=== PATIENT | male | born 1945 | race Caucasian/White ===

== ENCOUNTER → 2018-03-05 02:25 | Outpatient (CLI) | payer MEDICARE, BC, SELFPAY ==
[2018-03-05 11:26] LABS: INR 3.8 (1.0-3.5); Prothrombin Time 35.3 sec (9.3-10.8)
== END ==
PROVIDERS: Family Medicine; PCP Emergency Medicine; Visit Provider Emergency Medicine
DX: I48.91 Unspecified atrial fibrillation (principal); Z79.01 Long term (current) use of anticoagulants
CPT/HCPCS: 36415; 85610

== ENCOUNTER 2018-03-12 07:51 | Outpatient (CLI) | payer MEDICARE, BC, SELFPAY ==
[2018-03-12 11:16] LABS: INR 2.5 (1.0-3.5); Prothrombin Time 23.3 sec (9.3-10.8)
== END 2018-03-12 07:52 ==
PROVIDERS: Family Medicine; PCP Emergency Medicine; Visit Provider Emergency Medicine
DX: I48.91 Unspecified atrial fibrillation (principal); Z79.01 Long term (current) use of anticoagulants
CPT/HCPCS: 36415; 85610

== ENCOUNTER 2018-03-19 03:04 | Outpatient (CLI) | payer MEDICARE, BC, SELFPAY ==
[2018-03-19 11:23] LABS: INR 3.1 (1.0-3.5)
== END 2018-03-19 03:24 ==
PROVIDERS: Family Medicine; PCP Emergency Medicine; Visit Provider Emergency Medicine
DX: I48.91 Unspecified atrial fibrillation (principal); Z79.01 Long term (current) use of anticoagulants
CPT/HCPCS: 36415; 85610

== ENCOUNTER 2018-03-26 02:15 | Outpatient (CLI) | payer MEDICARE, BC, SELFPAY ==
[2018-03-26 11:39] LABS: C-Reactive Protein 0.12 mg/dL (0.0-0.3)
[2018-03-26 11:50] LABS: INR 3.4 (1.0-3.5)
[2018-03-26 12:20] LABS: Vitamin B12 669 pg/mL (193-986)
== END 2018-03-26 02:35 ==
PROVIDERS: Family Medicine; Internal Medicine Gastroenterology; PCP Emergency Medicine; Visit Provider Emergency Medicine
DX: I48.91 Unspecified atrial fibrillation (principal); Z79.01 Long term (current) use of anticoagulants; K50.00 Crohn's disease of small intestine without complications; K90.89 Other intestinal malabsorption; K29.00 Acute gastritis without bleeding
CPT/HCPCS: 36415; 82607; 85610; 86140

== ENCOUNTER 2018-04-02 01:28 | Outpatient (CLI) | payer MEDICARE, BC, SELFPAY ==
[2018-04-02 11:15] LABS: INR 2.5 (1.0-3.5); Prothrombin Time 23.3 sec (9.3-10.8)
== END 2018-04-02 01:48 ==
PROVIDERS: PCP Emergency Medicine; Visit Provider Emergency Medicine
DX: I48.91 Unspecified atrial fibrillation (principal); Z79.01 Long term (current) use of anticoagulants
CPT/HCPCS: 36415; 85610

== ENCOUNTER 2018-04-09 02:18 | Outpatient (CLI) | payer MEDICARE, BC, SELFPAY ==
[2018-04-09 13:00] LABS: INR 2.8 (1.0-3.5); Prothrombin Time 26.1 sec (9.3-10.8)
== END 2018-04-09 02:38 ==
PROVIDERS: Family Medicine; PCP Emergency Medicine; Visit Provider Emergency Medicine
DX: Z79.01 Long term (current) use of anticoagulants (principal); R69 Illness, unspecified
CPT/HCPCS: 36415; 85610

== ENCOUNTER 2018-05-06 08:45 | Outpatient (CLI) | payer MEDICARE, BC, SELFPAY ==
[2018-05-06 14:44] LABS: INR 1.9 (1.0-3.5)
[2018-05-06 14:47] LABS: ALT 45 U/L (12-78); AST 32 U/L (15-37); Albumin 3.6 g/dL (3.4-5.0); Alkaline Phosphatase 68 U/L (46-116); Anion Gap 7.6 mmol/L (3-11); BUN 19 mg/dL (7-18); Bilirubin, Total 0.5 mg/dL (0.2-1.0); CO2 27.4 mmol/L (21.0-32.0); CREATININE 0.93 mg/dL (0.70-1.30); Calcium 8.6 mg/dL (8.5-10.1); Chloride 101 mmol/L (98-107); Glucose 115 mg/dL (70-100); Potassium 4.3 mmol/L (3.5-5.1); Sodium 136 mmol/L (136-145); Total Protein 7.1 g/dL (6.4-8.2)
[2018-05-06 14:59] LABS: Abs Immature Grans 0.01 k/cumm (0.0-0.09); Absolute Basophil Count 0.03 k/cumm (0.0-0.2); Absolute Eosinophil Count 0.09 k/cumm (0.0-0.7); Absolute Lymphocyte Count 1.13 k/cumm (1.2-3.4); Absolute Monocyte Count 0.56 k/cumm (0.11-0.7); Absolute Neutrophil Count 4.53 k/cumm (1.2-6.7); Basophils % 0.5; Eosinophils % 1.4; HCT 38.9 % (40.0-50.0); HGB 13.2 g/dL (13.5-17.5); Immature Grans % 0.2; Lymphocytes % 17.8; Mean Corp. HGB Concentration 33.9 g/dL (32.0-36.0); Mean Corpuscular Hemoglobin 30.5 pg (27.0-33.0); Mean Corpuscular Volume 89.8 fL (80-95); Mean Platelet Volume 9.9 fL (8.0-11.0); Monocytes % 8.8; Neutrophils % 71.3; Platelet Count 227 x1000/uL (130-400); RBC 4.33 m/cumm (4.50-6.00); RBC Distribution Width 14.7 % (11.8-14.1); White Blood Cell Count 6.35 k/cumm (4.4-10.8)
[2018-05-07 10:38] LABS: PSA, Diagnostic <0.1 ng/ml (0-6.5)
[2018-05-08 03:10] LABS: Testosterone, Total 262 ng/dL (240-950)
== END 2018-05-06 09:05 ==
PROVIDERS: Family Medicine; Internal Medicine; PCP Emergency Medicine; Visit Provider Emergency Medicine
DX: Z85.46 Personal history of malignant neoplasm of prostate (principal); I48.91 Unspecified atrial fibrillation; Z79.01 Long term (current) use of anticoagulants
CPT/HCPCS: 36415; 80053; 84403; 84153; 85025; 85610

== ENCOUNTER 2018-05-20 01:42 | Outpatient (CLI) | payer MEDICARE, BC, SELFPAY ==
[2018-05-20 10:45] LABS: INR 2.5 (1.0-3.5); Prothrombin Time 23.3 sec (9.3-10.8)
== END 2018-05-20 02:02 ==
PROVIDERS: PCP Emergency Medicine; Visit Provider Emergency Medicine
DX: I48.91 Unspecified atrial fibrillation (principal); Z79.01 Long term (current) use of anticoagulants
CPT/HCPCS: 36415; 85610

== ENCOUNTER 2018-06-03 07:59 | Outpatient (CLI) | payer MEDICARE, BC, SELFPAY ==
[2018-06-03 09:32] LABS: INR 2.2 (1.0-3.5); Prothrombin Time 20.7 sec (9.3-10.8)
== END 2018-06-03 08:19 ==
LOC: LOS 08:05 → LBO 08:59
PROVIDERS: Family Medicine; PCP Emergency Medicine; Visit Provider Emergency Medicine
DX: I48.91 Unspecified atrial fibrillation (principal); Z79.01 Long term (current) use of anticoagulants
CPT/HCPCS: 36415; 85610

== ENCOUNTER 2018-07-23 08:34 | Outpatient (CLI) | payer MEDICARE, BC, SELFPAY ==
[2018-07-23 12:38] LABS: INR 1.3 (0.9-1.1); Prothrombin Time 13.3 sec (9.3-11.0)
== END 2018-07-23 08:54 ==
PROVIDERS: Family Medicine; PCP Emergency Medicine; Visit Provider Emergency Medicine
DX: I48.91 Unspecified atrial fibrillation (principal); Z79.01 Long term (current) use of anticoagulants
CPT/HCPCS: 36415; 85610

== ENCOUNTER 2018-07-30 08:50 | Outpatient (CLI) | payer MEDICARE, BC, SELFPAY ==
[2018-07-30 15:43] LABS: INR 1.4 (0.9-1.1); Prothrombin Time 14.4 sec (9.3-11.0)
== END 2018-07-30 09:10 ==
PROVIDERS: PCP Emergency Medicine; Visit Provider Emergency Medicine
DX: I48.91 Unspecified atrial fibrillation (principal); Z79.01 Long term (current) use of anticoagulants
CPT/HCPCS: 36415; 85610

== ENCOUNTER 2018-08-06 09:24 | Outpatient (CLI) | payer MEDICARE, BC, SELFPAY ==
[2018-08-06 12:06] LABS: INR 1.7 (0.9-1.1); Prothrombin Time 16.8 sec (9.3-11.0)
== END 2018-08-06 09:44 ==
PROVIDERS: Family Medicine; PCP Emergency Medicine; Visit Provider Emergency Medicine
DX: I48.91 Unspecified atrial fibrillation (principal); Z79.01 Long term (current) use of anticoagulants
CPT/HCPCS: 36415; 85610

== ENCOUNTER 2018-08-07 10:13 | Outpatient (CLI) | payer MEDICARE, BC, SELFPAY ==
--- NOTE | 2018-08-07 10:15 | DI.RAD_ITS ---
SYMPTOMS/DIAGNOSIS: PAIN RIGHT THUMB: Three views. At the interphalangeal joint, periarticular spurring and joint space narrowing is seen. At the metacarpophalangeal joint, there is mild narrowing. The 1st carpometacarpal joint appears well maintained. The bones appear intact and normally mineralized. The soft tissues are unremarkable. IMPRESSION: Mild osteoarthritis of the right thumb.
== END 2018-08-07 10:33 ==
PROVIDERS: PCP Emergency Medicine; Referring Provider Emergency Medicine; Visit Provider Student in an Organized Health Care Education/Training Program
DX: G89.29 Other chronic pain (principal); M79.644 Pain in right finger(s); M19.041 Primary osteoarthritis, right hand; M19.012 Primary osteoarthritis, left shoulder
CPT/HCPCS: 99214; 99243; 73140

== ENCOUNTER 2018-08-13 01:48 | Outpatient (CLI) | payer MEDICARE, BC, SELFPAY ==
[2018-08-13 14:14] LABS: Absolute Basophil Count 0.05 k/cumm (0.0-0.2); Absolute Lymphocyte Count 1.16 k/cumm (1.2-3.4); Absolute Neutrophil Count 4.01 k/cumm (1.2-6.7); Basophils % 0.8; Eosinophils % 3.4; HCT 39.4 % (40.0-50.0); HGB 13.4 g/dL (13.5-17.5); Lymphocytes % 19.6; Mean Corpuscular Hemoglobin 30.3 pg (27.0-33.0); Mean Corpuscular Volume 89.1 fL (80-95); Mean Platelet Volume 10.9 fL (8.0-11.0); Monocytes % 8.4; Neutrophils % 67.8; Platelet Count 200 x1000/uL (130-400); RBC 4.42 m/cumm (4.50-6.00); RBC Distribution Width 14.5 % (11.8-14.1); White Blood Cell Count 5.92 k/cumm (4.4-10.8)
[2018-08-13 14:26] LABS: ALT 54 U/L (12-78); AST 38 U/L (15-37); Albumin 3.8 g/dL (3.4-5.0); Alkaline Phosphatase 67 U/L (46-116); Anion Gap 8.6 mmol/L (3-11); BUN 21 mg/dL (7-18); Bilirubin, Total 0.6 mg/dL (0.2-1.0); CO2 28.4 mmol/L (21.0-32.0); CREATININE 1.01 mg/dL (0.70-1.30); Chloride 103 mmol/L (98-107); Glucose 108 mg/dL (70-100); Potassium 4.2 mmol/L (3.5-5.1); Sodium 140 mmol/L (136-145); Total Protein 7.6 g/dL (6.4-8.2)
[2018-08-13 14:27] LABS: INR 2.7 (0.9-1.1)
[2018-08-14 09:55] LABS: PSA, Diagnostic <0.1 ng/ml (0-6.5)
[2018-08-16 14:58] LABS: Testosterone, Total 244 ng/dL (240-950)
== END 2018-08-13 02:08 ==
PROVIDERS: PCP Emergency Medicine; Visit Provider Emergency Medicine
DX: C61 Malignant neoplasm of prostate (principal); I48.91 Unspecified atrial fibrillation; Z79.01 Long term (current) use of anticoagulants
CPT/HCPCS: 36415; 80053; 84403; 84153; 85025; 85610

== ENCOUNTER 2018-08-27 07:58 | Outpatient (CLI) | payer MEDICARE, BC, SELFPAY ==
[2018-08-27 16:36] LABS: INR 1.8 (0.9-1.1); Prothrombin Time 18.1 sec (9.3-11.0)
== END 2018-08-27 08:18 ==
PROVIDERS: Family Medicine; PCP Emergency Medicine; Visit Provider Emergency Medicine
DX: I48.91 Unspecified atrial fibrillation (principal); Z79.01 Long term (current) use of anticoagulants
CPT/HCPCS: 36415; 85610

== ENCOUNTER 2018-09-03 07:42 | Outpatient (CLI) | payer MEDICARE, BC, SELFPAY ==
[2018-09-03 11:46] LABS: INR 2.9 (0.9-1.1); Prothrombin Time 28.9 sec (9.3-11.0)
== END 2018-09-03 08:02 ==
PROVIDERS: Family Medicine; PCP Emergency Medicine; Visit Provider Emergency Medicine
DX: I48.91 Unspecified atrial fibrillation (principal); Z79.01 Long term (current) use of anticoagulants
CPT/HCPCS: 36415; 85610

== ENCOUNTER 2018-09-17 02:28 | Outpatient (CLI) | payer MEDICARE, BC, SELFPAY ==
[2018-09-17 09:18] LABS: INR 2.9 (0.9-1.1); Prothrombin Time 29.5 sec (9.3-11.0)
== END 2018-09-17 02:48 ==
PROVIDERS: PCP Emergency Medicine; Visit Provider Emergency Medicine
DX: I48.91 Unspecified atrial fibrillation (principal); Z79.01 Long term (current) use of anticoagulants
CPT/HCPCS: 36415; 85610

== ENCOUNTER 2018-11-23 14:14 | Outpatient (CLI) | payer MEDICARE, BC, SELFPAY ==
[2018-11-23 16:32] LABS: Abs Immature Grans 0.01 k/cumm (0.0-0.09); Absolute Basophil Count 0.03 k/cumm (0.0-0.2); Absolute Eosinophil Count 0.13 k/cumm (0.0-0.7); Absolute Lymphocyte Count 1.31 k/cumm (1.2-3.4); Absolute Neutrophil Count 7.45 k/cumm (1.2-6.7); Basophils % 0.3; Eosinophils % 1.3; HGB 13.5 g/dL (13.5-17.5); Immature Grans % 0.1; Lymphocytes % 13.6; Mean Corp. HGB Concentration 34.6 g/dL (32.0-36.0); Mean Corpuscular Hemoglobin 30.2 pg (27.0-33.0); Mean Corpuscular Volume 87.2 fL (80-95); Mean Platelet Volume 11.2 fL (8.0-11.0); Monocytes % 7.3; Neutrophils % 77.4; Platelet Count 246 x1000/uL (130-400); RBC 4.47 m/cumm (4.50-6.00); White Blood Cell Count 9.63 k/cumm (4.4-10.8)
[2018-11-23 16:44] LABS: INR 3.4 (0.9-1.1); Prothrombin Time 34.5 sec (9.3-11.0)
[2018-11-23 18:04] LABS: ALT 49 U/L (12-78); AST 40 U/L (15-37); Albumin 3.8 g/dL (3.4-5.0); Alkaline Phosphatase 73 U/L (46-116); Anion Gap 13.4 mmol/L (3-11); BUN 26 mg/dL (7-18); Bilirubin, Total 0.8 mg/dL (0.2-1.0); CO2 21.6 mmol/L (21.0-32.0); CREATININE 1.33 mg/dL (0.70-1.30); Calcium 8.7 mg/dL (8.5-10.1); Chloride 102 mmol/L (98-107); Estimated GFR 52.71 (mL/min/1.73m2); Glucose 112 mg/dL (70-100); Potassium 4.1 mmol/L (3.5-5.1); Sodium 137 mmol/L (136-145); Total Protein 7.1 g/dL (6.4-8.2)
[2018-11-25 09:37] LABS: PSA, Diagnostic 0.1 ng/ml (0-6.5)
[2018-11-27 09:29] LABS: Testosterone, Total 352 ng/dL (240-950)
== END 2018-11-23 14:34 ==
PROVIDERS: PCP Emergency Medicine; Visit Provider Internal Medicine
DX: C61 Malignant neoplasm of prostate (principal); I48.91 Unspecified atrial fibrillation; Z79.01 Long term (current) use of anticoagulants
CPT/HCPCS: 36415; 80053; 84403; 84153; 85025; 85610

== ENCOUNTER 2018-12-02 07:35 | Outpatient (CLI) | payer MEDICARE, BC, SELFPAY ==
[2018-12-02 09:07] LABS: INR 2.4 (0.9-1.1); Prothrombin Time 24.1 sec (9.3-11.0)
== END 2018-12-02 07:55 ==
PROVIDERS: Family Medicine; PCP Emergency Medicine; Visit Provider Emergency Medicine
DX: I48.91 Unspecified atrial fibrillation (principal); Z79.01 Long term (current) use of anticoagulants
CPT/HCPCS: 36415; 85610

== ENCOUNTER 2018-12-29 01:41 | Outpatient (CLI) | payer MEDICARE, BC, SELFPAY ==
[2018-12-29 14:38] LABS: INR 2.8 (0.9-1.1); Prothrombin Time 28.2 sec (9.3-11.0)
== END 2018-12-29 02:01 ==
PROVIDERS: Family Medicine; PCP Emergency Medicine; Visit Provider Emergency Medicine
DX: I48.91 Unspecified atrial fibrillation (principal); Z79.01 Long term (current) use of anticoagulants
CPT/HCPCS: 36415; 85610

== ENCOUNTER 2019-01-05 19:51 | Outpatient (REF) | payer MEDICARE, BC, SELFPAY ==
[2019-01-05 20:11] LABS: Bacteria Negative HPF (Negative); Bilirubin Negative (Negative); Blood Moderate (Negative); C & S Indicated? No; Casts Negative LPF (Negative); Clarity Clear (Clear); Crystals Negative HPF (Negative); Epithelial Cells Negative HPF (Negative); Glucose Negative (Negative); Ketones Negative (Negative); Leukocyte Esterase Negative (Negative); Mucus Negative (Negative); Nitrite Negative (Negative); Other Cells Negative (Negative); RBC 20-50 (0-2); Urobilinogen 0.2 EU/dL (Up TO 0.2); WBC Negative HPF (0-5)
== END 2019-01-05 20:11 ==
LOC: LBN 19:51
PROVIDERS: PCP Emergency Medicine; Visit Provider Emergency Medicine
DX: R31.9 Hematuria, unspecified (principal)
CPT/HCPCS: 81003; 81015

== ENCOUNTER 2019-01-15 02:55 | Outpatient (CLI) | payer MEDICARE, BC, SELFPAY ==
--- NOTE | 2019-02-02 16:40 | ZIOP_ITS ---
DATE OF DICTATION: February 02, 2019 STUDY INDICATION: Atrial flutter. REQUESTING PROVIDER: Dong Stiles D.O. FINDINGS: The patient was monitored for 13 days and 6 hours. The predominant underlying rhythm was sinus rhythm. Average heart rate in sinus rhythm 68 bpm, range 45 to 122 bpm. There was rare ectopy. There were 51 episodes of supraventricular tachycardia, average heart rate 123 bpm, range 51 to 184 bpm. The longest episode lasted 21.9 seconds with an average heart rate of 130 bpm. There were no pauses greater than 3 seconds. There was no high-degree heart block. There were four patient events. None of these events correlated with arrhythmia. FINAL INTERPRETATION: Occasional bursts of supraventricular tachycardia, asymptomatic.
== END 2019-01-15 03:15 ==
PROVIDERS: PCP Emergency Medicine; Visit Provider Emergency Medicine
DX: I48.92 Unspecified atrial flutter (principal); I47.1 Supraventricular tachycardia
CPT/HCPCS: 0296T

== ENCOUNTER 2019-01-27 01:44 | Outpatient (CLI) | payer MEDICARE, BC, SELFPAY ==
[2019-01-27 12:04] LABS: Prothrombin Time 24.7 sec (9.3-11.0)
[2019-01-27 12:05] LABS: Hemoglobin A1C 5.6 % (4.5-6.2)
[2019-01-27 12:09] LABS: INR 2.4 (0.9-1.1)
== END 2019-01-27 02:04 ==
PROVIDERS: PCP Emergency Medicine; Visit Provider Emergency Medicine
DX: E11.9 Type 2 diabetes mellitus without complications (principal); I48.91 Unspecified atrial fibrillation; Z79.01 Long term (current) use of anticoagulants
CPT/HCPCS: 36415; 83036; 85610

== ENCOUNTER 2019-02-02 11:01 | Outpatient (CLI) | payer MEDICARE, BC, SELFPAY | END 2019-02-02 11:21 | PROVIDERS: PCP Emergency Medicine; Referring Provider Emergency Medicine; Visit Provider Student in an Organized Health Care Education/Training Program | DX: I48.92 Unspecified atrial flutter (principal) | CPT/HCPCS: 0298T ==

== ENCOUNTER 2019-02-25 00:35 | Outpatient (CLI) | payer MEDICARE, BC, SELFPAY ==
[2019-02-25 13:22] LABS: Prothrombin Time 30.8 sec (9.3-11.0)
== END 2019-02-25 00:55 ==
PROVIDERS: Family Medicine; PCP Emergency Medicine; Visit Provider Emergency Medicine
DX: I48.91 Unspecified atrial fibrillation (principal); Z79.01 Long term (current) use of anticoagulants
CPT/HCPCS: 36415; 85610

== ENCOUNTER 2019-03-04 01:45 | Outpatient (CLI) | payer MEDICARE, BC, SELFPAY ==
--- NOTE | 2019-03-04 14:00 | DI.CT_ITS ---
SYMPTOMS/DIAGNOSIS: GROSS HEMATURIA, H/O PROSTATE CA, Z85.46 CT UROGRAPHY: Pre and post contrast CT scan was performed. No priors for comparison. Noncontrast CT scan of the abdomen and pelvis shows multiple calcifications in the spleen, consistent with prior granulomatous disease. There is right nephrolithiasis, the largest stone measures 0.6 cm. No ureterolithiasis or obstructive uropathy is present. There are no stones seen in the urinary bladder. There is scarring in the left lung base. There is elevation of the left hemidiaphragm. This is unchanged compared to the CT scan of the chest from 12/25/12. Lack of IV contrast does limit evaluation of the abdominal and pelvic organs. Postcontrast CT scan of the abdomen and pelvis was performed. The liver is normal in size. No suspicious hepatic mass is seen. Calcifications are seen in the liver consistent with prior granulomatous disease. The portal, superior mesenteric and splenic veins are patent. The gallbladder is negative. There is no biliary ductal dilatation. The pancreas is grossly unremarkable. The adrenal glands are unremarkable. The kidneys show normal and symmetric enhancement. There are a few tiny hypodensities seen in the left kidney. They are too small for further characterization but likely reflect small cysts. No suspicious solid mass is present. The urinary bladder is intact. The abdominal aorta is of normal caliber. The bowel shows no evidence of obstruction or inflammation. No significant abdominal or pelvic adenopathy, ascites or pneumoperitoneum is present. There are marked degenerative changes seen in the spine. There is fusion of the L2-3 and L3-L4 disc spaces. There is a left convex scoliotic curvature of the lumbar spine. No sclerotic osseous lesions are identified. [id number] images of the renal collecting system were performed. There are no filling defects present. No evidence of obstruction is seen. There is contrast seen within the urinary bladder. No definite urinary bladder mass is seen. IMPRESSION: 1. Right nephrolithiasis. No evidence of ureterolithiasis or obstructive uropathy. No evidence of a renal mass. 2. Findings of prior granulomatous disease. 3. Marked degenerative changes seen in the lumbar spine.
[2019-03-04 14:37] LABS: CREATININE 0.86 mg/dL (0.70-1.30)
[2019-03-04 14:46] LABS: INR 2.5 (0.9-1.1); Prothrombin Time 25.1 sec (9.3-11.0)
[2019-03-04] MEDS: Omnipaque 350 MG/ML 50 ML BTL IJ ×2 (14:54→14:55)
== END 2019-03-04 02:05 ==
PROVIDERS: Family Medicine; PCP Emergency Medicine; Visit Provider Surgery
DX: R31.0 Gross hematuria (principal); Z85.46 Personal history of malignant neoplasm of prostate; N20.0 Calculus of kidney; I48.91 Unspecified atrial fibrillation; Z79.01 Long term (current) use of anticoagulants
CPT/HCPCS: 36415; 74178; 82565; 85610; Q9967

== ENCOUNTER 2019-03-30 01:21 | Outpatient (CLI) | payer MEDICARE, BC, SELFPAY ==
[2019-03-30 16:23] LABS: INR 3.1 (0.9-1.1); Prothrombin Time 31.4 sec (9.3-11.0)
== END 2019-03-30 01:41 ==
PROVIDERS: PCP Emergency Medicine; Visit Provider Emergency Medicine
DX: I48.91 Unspecified atrial fibrillation (principal); Z79.01 Long term (current) use of anticoagulants
CPT/HCPCS: 36415; 85610

== ENCOUNTER 2019-04-13 11:14 | Outpatient (CLI) | payer MEDICARE, BC, SELFPAY ==
[2019-04-13 14:48] LABS: INR 2.8 (0.9-1.1); Prothrombin Time 27.3 sec (9.3-11.0)
== END 2019-04-13 11:34 ==
PROVIDERS: PCP Emergency Medicine; Visit Provider Emergency Medicine
DX: I48.91 Unspecified atrial fibrillation (principal); Z79.01 Long term (current) use of anticoagulants
CPT/HCPCS: 36415; 85610

== ENCOUNTER 2019-05-04 02:08 | Outpatient (CLI) | payer MEDICARE, BC, SELFPAY ==
[2019-05-04 09:12] LABS: Absolute Basophil Count 0.03 k/cumm (0.0-0.2); Absolute Eosinophil Count 0.14 k/cumm (0.0-0.7); Absolute Lymphocyte Count 0.83 k/cumm (1.2-3.4); Absolute Monocyte Count 0.45 k/cumm (0.11-0.7); Absolute Neutrophil Count 3.49 k/cumm (1.2-6.7); Basophils % 0.6; Eosinophils % 2.8; HCT 39.6 % (40.0-50.0); HGB 13.3 g/dL (13.5-17.5); Lymphocytes % 16.8; Mean Corp. HGB Concentration 33.6 g/dL (32.0-36.0); Mean Corpuscular Hemoglobin 30.3 pg (27.0-33.0); Mean Corpuscular Volume 90.2 fL (80-95); Mean Platelet Volume 10.6 fL (8.0-11.0); Monocytes % 9.1; Neutrophils % 70.7; Platelet Count 221 x1000/uL (130-400); RBC 4.39 m/cumm (4.50-6.00); RBC Distribution Width 14.8 % (11.8-14.1); White Blood Cell Count 4.94 k/cumm (4.4-10.8)
[2019-05-04 09:34] LABS: ALT 34 U/L (16-63); AST 28 U/L (15-37); Albumin 3.6 g/dL (3.4-5.0); Alkaline Phosphatase 63 U/L (46-116); Anion Gap 7.1 mmol/L (3-11); BUN 19 mg/dL (7-18); Bilirubin, Total 0.9 mg/dL (0.2-1.0); CO2 28.9 mmol/L (21.0-32.0); CREATININE 0.96 mg/dL (0.70-1.30); Calcium 8.7 mg/dL (8.5-10.1); Chloride 103 mmol/L (98-107); Glucose 87 mg/dL (70-100); Potassium 4.2 mmol/L (3.5-5.1); Sodium 139 mmol/L (136-145); Total Protein 7.1 g/dL (6.4-8.2)
[2019-05-04 09:40] LABS: INR 2.5 (0.9-1.1); Prothrombin Time 24.7 sec (9.3-11.0)
[2019-05-05 10:57] LABS: PSA, Screening <0.1 ng/ml (0-6.5)
[2019-05-06 12:47] LABS: Testosterone, Total 302 ng/dL (240-950)
== END 2019-05-04 02:28 ==
PROVIDERS: Family Medicine; PCP Emergency Medicine; Visit Provider Internal Medicine
DX: C61 Malignant neoplasm of prostate (principal); I48.91 Unspecified atrial fibrillation; Z79.01 Long term (current) use of anticoagulants
CPT/HCPCS: 36415; 80053; 84153; 84403; 85025; 85610

== ENCOUNTER 2019-06-18 08:38 | Outpatient (CLI) | payer MEDICARE, BC, SELFPAY ==
[2019-06-18 15:50] LABS: Prothrombin Time 29.3 sec (9.3-11.0)
== END 2019-06-18 08:58 ==
PROVIDERS: PCP Emergency Medicine; Visit Provider Family Medicine
DX: I48.91 Unspecified atrial fibrillation (principal); Z79.01 Long term (current) use of anticoagulants
CPT/HCPCS: 36415; 85610

== ENCOUNTER 2019-07-12 08:43 | Outpatient (CLI) | payer MEDICARE, BC, SELFPAY ==
[2019-07-12 13:29] LABS: INR 2.8 (0.9-1.1); Prothrombin Time 27.8 sec (9.3-11.0)
== END 2019-07-12 09:03 ==
PROVIDERS: PCP Emergency Medicine; Visit Provider Emergency Medicine
DX: I48.91 Unspecified atrial fibrillation (principal); Z79.01 Long term (current) use of anticoagulants
CPT/HCPCS: 36415; 85610

== ENCOUNTER 2019-08-16 10:11 | Outpatient (CLI) | payer MEDICARE, BC, SELFPAY ==
[2019-08-16 13:13] LABS: Abs Immature Grans 0.01 k/cumm (0.0-0.09); Absolute Basophil Count 0.03 k/cumm (0.0-0.2); Absolute Eosinophil Count 0.14 k/cumm (0.0-0.7); Absolute Lymphocyte Count 1.12 k/cumm (1.2-3.4); Absolute Monocyte Count 0.59 k/cumm (0.11-0.7); Absolute Neutrophil Count 4.16 k/cumm (1.2-6.7); Basophils % 0.5; Eosinophils % 2.3; HCT 39.6 % (40.0-50.0); HGB 13.3 g/dL (13.5-17.5); Immature Grans % 0.2 %; Lymphocytes % 18.5; Mean Corp. HGB Concentration 33.6 g/dL (32.0-36.0); Mean Corpuscular Volume 89.4 fL (80-95); Mean Platelet Volume 10.5 fL (8.0-11.0); Monocytes % 9.8; Neutrophils % 68.7; Platelet Count 224 x1000/uL (130-400); RBC 4.43 m/cumm (4.50-6.00); RBC Distribution Width 14.6 % (11.8-14.1); White Blood Cell Count 6.05 k/cumm (4.4-10.8)
[2019-08-16 14:02] LABS: INR 3.4 (0.9-1.1); Prothrombin Time 33.3 sec (9.3-11.0)
[2019-08-16 14:10] LABS: ALT 35 U/L (16-63); AST 26 U/L (15-37); Albumin 3.8 g/dL (3.4-5.0); Alkaline Phosphatase 69 U/L (46-116); Anion Gap 7.6 mmol/L (3-11); BUN 23 mg/dL (7-18); Bilirubin, Total 0.5 mg/dL (0.2-1.0); CO2 27.4 mmol/L (21.0-32.0); CREATININE 1.07 mg/dL (0.70-1.30); Calcium 8.5 mg/dL (8.5-10.1); Chloride 106 mmol/L (98-107); Glucose 88 mg/dL (74-106); Potassium 4.7 mmol/L (3.5-5.1); Sodium 141 mmol/L (136-145); Total Protein 6.8 g/dL (6.4-8.2)
[2019-08-17 09:57] LABS: PSA, Diagnostic <0.1 ng/mL (0.0-6.5)
[2019-08-18 16:04] LABS: Testosterone, Total 169 ng/dL (240-950)
== END 2019-08-16 10:31 ==
PROVIDERS: Family Medicine; PCP Emergency Medicine; Visit Provider Internal Medicine
DX: C61 Malignant neoplasm of prostate (principal); I48.91 Unspecified atrial fibrillation; Z79.01 Long term (current) use of anticoagulants
CPT/HCPCS: 36415; 80053; 84403; 84153; 85025; 85610

== ENCOUNTER 2019-08-30 08:00 | Outpatient (CLI) | payer MEDICARE, BC, SELFPAY ==
[2019-08-30 13:32] LABS: INR 3.9 (0.9-1.1); Prothrombin Time 38.2 sec (9.3-11.0)
== END 2019-08-30 08:20 ==
PROVIDERS: Family Medicine; PCP Emergency Medicine; Visit Provider Emergency Medicine
DX: I48.91 Unspecified atrial fibrillation (principal); Z79.01 Long term (current) use of anticoagulants
CPT/HCPCS: 36415; 85610

== ENCOUNTER 2019-09-06 08:10 | Outpatient (CLI) | payer MEDICARE, BC, SELFPAY ==
[2019-09-06 10:11] LABS: Absolute Basophil Count 0.05 k/cumm (0.0-0.2); Absolute Eosinophil Count 0.16 k/cumm (0.0-0.7); Absolute Lymphocyte Count 1.02 k/cumm (1.2-3.4); Absolute Monocyte Count 0.52 k/cumm (0.11-0.7); Basophils % 1.1; Eosinophils % 3.4; HCT 39.6 % (40.0-50.0); HGB 13.4 g/dL (13.5-17.5); Lymphocytes % 21.9; Mean Corp. HGB Concentration 33.8 g/dL (32.0-36.0); Mean Corpuscular Volume 88.8 fL (80-95); Mean Platelet Volume 10.9 fL (8.0-11.0); Monocytes % 11.2; Neutrophils % 62.4; Platelet Count 229 x1000/uL (130-400); RBC 4.46 m/cumm (4.50-6.00); RBC Distribution Width 14.8 % (11.8-14.1); White Blood Cell Count 4.65 k/cumm (4.4-10.8)
[2019-09-06 10:17] LABS: INR 1.7 (0.9-1.1)
[2019-09-06 11:03] LABS: ALT 36 U/L (16-63); AST 29 U/L (15-37); Albumin 3.7 g/dL (3.4-5.0); Alkaline Phosphatase 66 U/L (46-116); Anion Gap 8.4 mmol/L (3-11); BUN 21 mg/dL (7-18); Bilirubin, Total 0.8 mg/dL (0.2-1.0); CO2 26.6 mmol/L (21.0-32.0); CREATININE 0.91 mg/dL (0.70-1.30); Calcium 8.7 mg/dL (8.5-10.1); Chloride 105 mmol/L (98-107); Glucose 79 mg/dL (74-106); Potassium 4.6 mmol/L (3.5-5.1); Sodium 140 mmol/L (136-145); Total Protein 6.8 g/dL (6.4-8.2)
[2019-09-07 15:12] LABS: PSA, Diagnostic <0.1 ng/mL (0.0-6.5)
[2019-09-08 05:25] LABS: Testosterone, Total 296 ng/dL (240-950)
== END 2019-09-06 08:30 ==
PROVIDERS: Family Medicine; PCP Emergency Medicine; Visit Provider Internal Medicine
DX: I48.91 Unspecified atrial fibrillation (principal); Z79.01 Long term (current) use of anticoagulants; C61 Malignant neoplasm of prostate
CPT/HCPCS: 36415; 80053; 84403; 84153; 85025; 85610

== ENCOUNTER 2019-09-13 09:37 | Outpatient (CLI) | payer MEDICARE, BC, SELFPAY ==
[2019-09-13 14:27] LABS: INR 3.1 (0.9-1.1); Prothrombin Time 29.9 sec (9.3-11.0)
== END 2019-09-13 09:57 ==
PROVIDERS: PCP Emergency Medicine; Visit Provider Family Medicine
DX: I48.91 Unspecified atrial fibrillation (principal); Z79.01 Long term (current) use of anticoagulants
CPT/HCPCS: 36415; 85610

== ENCOUNTER 2019-09-27 07:19 | Outpatient (CLI) | payer MEDICARE, BC, SELFPAY ==
[2019-09-27 08:01] LABS: INR 2.9 (0.9-1.1); Prothrombin Time 28.4 sec (9.3-11.0)
== END 2019-09-27 07:39 ==
PROVIDERS: PCP Emergency Medicine; Visit Provider Family Medicine
DX: I48.91 Unspecified atrial fibrillation (principal); Z79.01 Long term (current) use of anticoagulants
CPT/HCPCS: 36415; 85610

== ENCOUNTER 2019-10-26 09:22 | Outpatient (CLI) | payer MEDICARE, BC, SELFPAY ==
[2019-10-26 15:54] LABS: INR 2.5 (0.9-1.1); Prothrombin Time 24.4 sec (9.3-11.0)
== END 2019-10-26 09:42 ==
PROVIDERS: PCP Family Medicine; Visit Provider Emergency Medicine
DX: I48.91 Unspecified atrial fibrillation (principal); Z79.01 Long term (current) use of anticoagulants
CPT/HCPCS: 36415; 85610

== ENCOUNTER 2019-11-25 01:53 | Outpatient (CLI) | payer MEDICARE, BC, SELFPAY ==
[2019-11-25 16:27] LABS: Prothrombin Time 23.1 sec (9.3-11.0)
[2019-11-25 16:33] LABS: INR 2.3 (0.9-1.1)
== END 2019-11-25 02:13 ==
PROVIDERS: PCP Emergency Medicine; Visit Provider Family Medicine
DX: I48.91 Unspecified atrial fibrillation (principal); Z79.01 Long term (current) use of anticoagulants
CPT/HCPCS: 36415; 85610

== ENCOUNTER 2019-12-29 03:47 | Outpatient (CLI) | payer MEDICARE, BC, SELFPAY ==
[2019-12-29 13:47] LABS: Abs Immature Grans 0.01 k/cumm (0.0-0.09); Absolute Basophil Count 0.02 k/cumm (0.0-0.2); Absolute Eosinophil Count 0.16 k/cumm (0.0-0.7); Absolute Lymphocyte Count 1.25 k/cumm (1.2-3.4); Absolute Monocyte Count 0.56 k/cumm (0.11-0.7); Absolute Neutrophil Count 4.93 k/cumm (1.2-6.7); Basophils % 0.3; Eosinophils % 2.3; HGB 14.2 g/dL (13.5-17.5); Immature Grans % 0.1 %; Mean Corp. HGB Concentration 34.6 g/dL (32.0-36.0); Mean Corpuscular Hemoglobin 30.8 pg (27.0-33.0); Mean Corpuscular Volume 88.9 fL (80-95); Mean Platelet Volume 10.8 fL (8.0-11.0); Monocytes % 8.1; Neutrophils % 71.2; Platelet Count 269 x1000/uL (130-400); RBC 4.61 m/cumm (4.50-6.00); RBC Distribution Width 14.6 % (11.8-14.1); White Blood Cell Count 6.93 k/cumm (4.4-10.8)
[2019-12-29 14:06] LABS: INR 2.6 (0.9-1.1); Prothrombin Time 25.9 sec (9.3-11.0)
[2019-12-29 15:05] LABS: ALT 42 U/L (16-63); AST 32 U/L (15-37); Albumin 4.3 g/dL (3.4-5.0); Alkaline Phosphatase 70 U/L (46-116); Anion Gap 7.7 mmol/L (3-11); BUN 23 mg/dL (7-18); Bilirubin, Total 0.7 mg/dL (0.2-1.0); CO2 29.3 mmol/L (21.0-32.0); CREATININE 1.42 mg/dL (0.70-1.30); Calcium 9.2 mg/dL (8.5-10.1); Chloride 104 mmol/L (98-107); Estimated GFR 48.73 (mL/min/1.73m2); Glucose 94 mg/dL (74-106); Potassium 4.4 mmol/L (3.5-5.1); Sodium 141 mmol/L (136-145); Total Protein 7.6 g/dL (6.4-8.2)
[2019-12-30 09:14] LABS: PSA, Diagnostic <0.1 ng/mL (0.0-6.5)
[2020-01-03 10:58] LABS: Testosterone, Total 361 ng/dL (240-950)
== END 2019-12-29 04:07 ==
PROVIDERS: PCP Emergency Medicine; Visit Provider Internal Medicine
DX: I48.91 Unspecified atrial fibrillation (principal); Z79.01 Long term (current) use of anticoagulants; C61 Malignant neoplasm of prostate
CPT/HCPCS: 36415; 80053; 84403; 84153; 85025; 85610

== ENCOUNTER 2020-01-05 02:35 | Outpatient (CLI) | payer MEDICARE, BC, SELFPAY ==
[2020-01-05 08:53] LABS: Calculated LDL 56 mg/dL (<100); Cholesterol 140 mg/dL (<200); HDL Cholesterol 76 mg/dL (40-60); Triglyceride 41 mg/dL (<150)
== END 2020-01-05 02:55 ==
PROVIDERS: PCP Emergency Medicine; Visit Provider Emergency Medicine
DX: Z13.6 Encounter for screening for cardiovascular disorders (principal)
CPT/HCPCS: 36415; 80061

== ENCOUNTER 2020-01-07 21:59 | Outpatient (REF) | payer MEDICARE, BC, SELFPAY ==
[2020-01-07 22:27] LABS: Bilirubin Negative (Negative); Blood Large (Negative); Clarity Cloudy (Clear); Glucose Negative (Negative); Ketones Negative (Negative); Leukocyte Esterase Negative (Negative); Nitrite Negative (Negative); Specific Gravity >= 1.030 (1.005-1.025); Urobilinogen 0.2 EU/dL (Up TO 0.2); pH 5.5 (5-8)
[2020-01-07 23:23] LABS: Bacteria Few HPF (Negative); Epithelial Cells Negative HPF (Negative); Other Cells Negative (Negative); RBC 20-50 HPF (0-2); WBC Negative HPF (0-5)
[2020-01-07 23:24] LABS: C & S Indicated? No; Casts Negative LPF (Negative); Crystals Many Calcium Oxalate HPF (Negative); Mucus Negative (Negative)
== END 2020-01-07 22:19 ==
LOC: LBN 21:59
PROVIDERS: PCP Emergency Medicine; Visit Provider Emergency Medicine
DX: R31.9 Hematuria, unspecified (principal)
CPT/HCPCS: 81003; 81015

== ENCOUNTER 2020-01-21 03:15 | Outpatient (CLI) | payer MEDICARE, BC, SELFPAY ==
[2020-01-21 08:54] LABS: INR 2.2 (0.9-1.1); Prothrombin Time 21.6 sec (9.3-11.0)
[2020-01-21 09:26] LABS: Iron 117 ug/dL (65-175); Total Iron Binding Capacity 275 ug/dL (250-450); Transferrin Sat 43 % (20-55)
[2020-01-21 09:38] LABS: Anion Gap 7.8 mmol/L (3-11); BUN 18 mg/dL (7-18); CO2 27.2 mmol/L (21.0-32.0); CREATININE 1.01 mg/dL (0.70-1.30); Calcium 9.2 mg/dL (8.5-10.1); Chloride 102 mmol/L (98-107); Ferritin 387 ng/mL (26-388); Glucose 82 mg/dL (74-106); Potassium 4.3 mmol/L (3.5-5.1); Sodium 137 mmol/L (136-145)
== END 2020-01-21 03:35 ==
PROVIDERS: PCP Emergency Medicine; Visit Provider Emergency Medicine
DX: I10 Essential (primary) hypertension (principal); K50.90 Crohn's disease, unspecified, without complications; I48.91 Unspecified atrial fibrillation; Z79.01 Long term (current) use of anticoagulants
CPT/HCPCS: 36415; 80048; 82728; 83540; 83550; 85610

== ENCOUNTER 2020-02-14 01:19 | Outpatient (CLI) | payer MEDICARE, BC, SELFPAY ==
--- NOTE | 2020-02-14 | DI.US_ITS ---
EXAM: US RENAL CLINICAL HISTORY: NEPHROLITHIASIS,N20.00 TECHNIQUE: Ultrasound performed using standard protocol. COMPARISON: No exams were available for comparison FINDINGS: Kidneys are normal in size and shape. There is a right midpole renal calculus which is nonobstructin g. This was identified on CT examination as well and measures about [address], 10 millimet ers by ultrasound. No hydronephrosis seen on either side. No renal mass identified. Urinary bladder is unremarkable in appearance with pre and postvoid urinary bladder volume measuremen ts 97 cc and 15 cc respectively. Ureteral jets are visualized bilaterally. Prostatic volume 12 cc. IMPRESSION: Nonobstructing right renal calculus. No other significant findings. DATA REPOSITORY:
== END 2020-02-14 01:39 ==
PROVIDERS: PCP Emergency Medicine; Visit Provider Surgery
DX: N20.0 Calculus of kidney (principal)
CPT/HCPCS: 76770

== ENCOUNTER 2020-02-14 01:20 | Outpatient (CLI) | payer MEDICARE, BC, SELFPAY ==
--- NOTE | 2020-02-14 07:00 | DI.CT_ITS ---
EXAM: CT RENAL COLIC WO CLINICAL HISTORY: left flank pain,R10.9, NEPHROLITHIASIS,N20.0 TECHNIQUE: COMPARISON: CT CT ABDOMEN PELVIS WO/W from 03/04/2019 FINDINGS: Noncontrast CT examination of the abdomen and pelvis was performed. There are severe degenerative ch anges and scoliosis of the thoracolumbar spine. Visualized lungs are clear. There are numerous sple loretta calcifications consistent with healed granulomatous disease, likely histoplasmosis, and a few hep atic calcifications are also noted. Note is made of moderate cardiomegaly. No significant abdominal wall hernia. No significant abdominal or pelvic adenopathy. Normal diamete r of abdominal aorta. No evidence of bowel obstruction. No evidence of appendicitis or diverticulit is. No biliary dilatation. Pancreas unremarkable by 6 noncontrast criteria. Adrenals appear normal bilaterally. Left kidney appears normal with no hydronephrosis or nephrolithiasis. No left ureteral calcification . Right kidney contains nonobstructing approximately 8 millimeter in diameter midpole calculus. No hyd ronephrosis. No ureteral calcification the right. Urinary bladder appears to have mildly thickened wall which is nonspecific. IMPRESSION: Nonobstructing right renal calculus. Mild urinary bladder wall thickening, nonspecific, chronic blad mir outlet obstruction versus cystitis.
== END 2020-02-14 01:40 ==
PROVIDERS: PCP Emergency Medicine; Visit Provider Emergency Medicine
DX: R10.9 Unspecified abdominal pain (principal); N20.0 Calculus of kidney
CPT/HCPCS: 76770; 74176

== ENCOUNTER 2020-02-29 02:37 | Outpatient (CLI) | payer MEDICARE, BC, SELFPAY ==
[2020-02-29 15:50] LABS: INR 3.3 (0.9-1.1)
== END 2020-02-29 02:57 ==
PROVIDERS: PCP Emergency Medicine; Visit Provider Family Medicine
DX: I48.91 Unspecified atrial fibrillation (principal); Z79.01 Long term (current) use of anticoagulants
CPT/HCPCS: 36415; 85610

== ENCOUNTER 2020-03-08 03:02 | Outpatient (CLI) | payer MEDICARE, BC, SELFPAY ==
[2020-03-08 12:33] LABS: INR 1.7 (0.9-1.1); Prothrombin Time 16.5 sec (9.3-11.0)
== END 2020-03-08 03:22 ==
PROVIDERS: PCP Emergency Medicine; Visit Provider Family Medicine
DX: I48.91 Unspecified atrial fibrillation (principal); Z79.01 Long term (current) use of anticoagulants
CPT/HCPCS: 36415; 85610

== ENCOUNTER 2020-05-01 04:08 | Outpatient (CLI) | payer MEDICARE, BC, SELFPAY ==
[2020-05-01 13:00] LABS: Abs Immature Grans 0.02 10^3/uL (0.0-0.06); Absolute Basophil Count 0.05 10^3/uL (0.0-0.2); Absolute Eosinophil Count 0.11 10^3/uL (0.0-0.7); Absolute Lymphocyte Count 0.96 10^3/uL (1.2-3.4); Absolute Neutrophil Count 3.33 10^3/uL (1.2-6.7); Eosinophils % 2.2; HCT 39.5 % (40.0-50.0); HGB 13.1 g/dL (13.5-17.5); Immature Grans % 0.4; Lymphocytes % 19.3; MCH 29.8 pg (27.0-33.0); MCHC 33.2 % (32.0-36.0); MPV 11.1 fL (8.0-11.0); Monocytes % 10.1; Nucleated RBC 0 %; Platelet Count 241 10^3/uL (130-400); RBC 4.39 10^6/uL (4.36-5.78); RDW 14.6 % (11.8-14.1); RDW-SD 48.2 fL; WBC 4.97 10^3/uL (4.4-10.8)
[2020-05-01 13:15] LABS: INR 2.4 (0.9-1.1); Prothrombin Time 23.4 sec (9.3-11.0)
[2020-05-01 13:42] LABS: ALT 28 U/L (16-63); AST 27 U/L (15-37); Albumin 3.7 g/dL (3.4-5.0); Alkaline Phosphatase 66 U/L (46-116); Anion Gap 9.4 mmol/L (3-11); BUN 18 mg/dL (7-18); Bilirubin, Total 0.7 mg/dL (0.2-1.0); CO2 26.6 mmol/L (21.0-32.0); CREATININE 0.93 mg/dL (0.70-1.30); Calcium 8.7 mg/dL (8.5-10.1); Chloride 103 mmol/L (98-107); Glucose 91 mg/dL (74-106); Potassium 4.5 mmol/L (3.5-5.1); Sodium 139 mmol/L (136-145); Total Protein 6.9 g/dL (6.4-8.2)
[2020-05-03 10:29] LABS: PSA, Ultrasensitive 0.04 ng/mL (<= 6.5)
[2020-05-04 09:41] LABS: Testosterone, Total 395 ng/dL (240-950)
== END 2020-05-01 04:28 ==
PROVIDERS: Family Medicine; Nurse Practitioner Adult Health; PCP Emergency Medicine; Visit Provider Emergency Medicine
DX: C61 Malignant neoplasm of prostate (principal); I48.91 Unspecified atrial fibrillation; Z79.01 Long term (current) use of anticoagulants; Z51.89 Encounter for other specified aftercare
CPT/HCPCS: 36415; 80053; 84153; 84403; 85025; 85610

== ENCOUNTER 2020-05-26 15:02 | Outpatient (CLI) | payer MEDICARE, BC, SELFPAY ==
[2020-05-26 16:27] LABS: Protime (LRH) 24.3 secs (9.1-10.6)
[2020-05-26 16:28] LABS: INR (LRH) 2.5 (0.9-1.1)
== END 2020-05-26 15:22 ==
PROVIDERS: Family Medicine; PCP Emergency Medicine; Visit Provider Emergency Medicine
DX: I48.91 Unspecified atrial fibrillation (principal); Z79.01 Long term (current) use of anticoagulants
CPT/HCPCS: 36415; 85610

== ENCOUNTER 2020-06-29 01:56 | Outpatient (CLI) | payer MEDICARE, BC, SELFPAY ==
[2020-06-29 07:58] LABS: HCT 39.2 % (40.0-50.0); HGB 13.1 g/dL (13.5-17.5); MCH 30.5 pg (27.0-33.0); MCHC 33.4 % (32.0-36.0); MCV 91.4 fL (80-95); MPV 10.8 fL (8.0-11.0); Platelet Count 215 10^3/uL (130-400); RBC 4.29 10^6/uL (4.36-5.78); RDW 14.6 % (11.8-14.1); RDW-SD 48.9 fL; WBC 6.05 10^3/uL (4.4-10.8)
[2020-06-29 08:08] LABS: INR 2.8 (0.9-1.1); Prothrombin Time 27.4 sec (9.3-11.0)
== END 2020-06-29 02:16 ==
PROVIDERS: PCP Emergency Medicine; Visit Provider Emergency Medicine
DX: D64.9 Anemia, unspecified (principal); I67.89 Other cerebrovascular disease; Z79.01 Long term (current) use of anticoagulants
CPT/HCPCS: 36415; 85027; 85610

== ENCOUNTER 2020-07-28 04:08 | Outpatient (CLI) | payer MEDICARE, BC, SELFPAY ==
[2020-07-28 11:06] LABS: INR 2.4 (0.9-1.1); Prothrombin Time 23.3 sec (9.3-11.0)
== END 2020-07-28 04:28 ==
PROVIDERS: PCP Emergency Medicine; Visit Provider Family Medicine
DX: I48.91 Unspecified atrial fibrillation (principal); Z79.01 Long term (current) use of anticoagulants
CPT/HCPCS: 36415; 85610

== ENCOUNTER 2020-09-08 02:17 | Outpatient (CLI) | payer MEDICARE, BC, SELFPAY ==
[2020-09-08 08:49] LABS: Abs Immature Grans 0.01 10^3/uL (0.0-0.06); Absolute Basophil Count 0.03 10^3/uL (0.0-0.2); Absolute Eosinophil Count 0.17 10^3/uL (0.0-0.7); Absolute Lymphocyte Count 0.91 10^3/uL (1.2-3.4); Absolute Monocyte Count 0.43 10^3/uL (0.1-0.8); Absolute Neutrophil Count 3.88 10^3/uL (1.2-6.7); Basophils % 0.6; Eosinophils % 3.1; HCT 38.5 % (40.0-50.0); HGB 13.1 g/dL (13.5-17.5); Immature Grans % 0.2; Lymphocytes % 16.8; MCH 29.9 pg (27.0-33.0); MCV 87.9 fL (80-95); MPV 10.8 fL (8.0-11.0); Monocytes % 7.9; Neutrophils % 71.4; Nucleated RBC 0 %; Platelet Count 218 10^3/uL (130-400); RBC 4.38 10^6/uL (4.36-5.78); RDW 14.6 % (11.8-14.1); RDW-SD 46.4 fL; WBC 5.43 10^3/uL (4.4-10.8)
[2020-09-08 09:01] LABS: ALT 30 U/L (16-63); AST 24 U/L (15-37); Albumin 3.6 g/dL (3.4-5.0); Alkaline Phosphatase 70 U/L (46-116); Anion Gap 7.9 mmol/L (3-11); BUN 18 mg/dL (7-18); Bilirubin, Total 0.8 mg/dL (0.2-1.0); CO2 29.1 mmol/L (21.0-32.0); Calcium 8.7 mg/dL (8.5-10.1); Chloride 104 mmol/L (98-107); Glucose 80 mg/dL (74-106); Sodium 141 mmol/L (136-145); Total Protein 7.3 g/dL (6.4-8.2)
[2020-09-08 09:04] LABS: INR 2.9 (0.9-1.1); Prothrombin Time 28.3 sec (9.3-11.0)
[2020-09-08 09:29] LABS: C-Reactive Protein < 0.05 mg/dL (0.0-0.3)
[2020-09-11 11:25] LABS: PSA, Ultrasensitive 0.04 ng/mL (<= 6.5)
[2020-09-13 13:19] LABS: Testosterone, Total 324 ng/dL (240-950)
== END 2020-09-08 02:18 | disposition home or self-care (01) ==
LOC: LBO 02:17
PROVIDERS: Family Medicine; Nurse Practitioner Adult Health; PCP Emergency Medicine; Visit Provider Internal Medicine Gastroenterology
DX: K50.00 Crohn's disease of small intestine without complications (principal); K58.0 Irritable bowel syndrome with diarrhea; Z51.81 Encounter for therapeutic drug level monitoring; I48.91 Unspecified atrial fibrillation; Z79.01 Long term (current) use of anticoagulants; C61 Malignant neoplasm of prostate
CPT/HCPCS: 36415; 80053; 84153; 84403; 85025; 85610; 86140

== ENCOUNTER 2020-09-29 03:23 | Outpatient (CLI) | payer MEDICARE, BC, SELFPAY ==
[2020-09-29 12:02] LABS: Prothrombin Time 20.1 sec (9.3-11.0)
== END 2020-09-29 03:24 | disposition home or self-care (01) ==
PROVIDERS: PCP Emergency Medicine; Visit Provider Family Medicine
DX: I48.91 Unspecified atrial fibrillation (principal); Z79.01 Long term (current) use of anticoagulants
CPT/HCPCS: 36415; 85610

== ENCOUNTER 2020-11-02 03:54 | Outpatient (CLI) | payer MEDICARE, BC, SELFPAY ==
[2020-11-02 14:22] LABS: INR 2.5 (0.9-1.1); Prothrombin Time 24.3 sec (9.3-11.0)
== END 2020-11-02 03:55 | disposition home or self-care (01) ==
LOC: LBO 03:54
PROVIDERS: PCP Emergency Medicine; Visit Provider Emergency Medicine
DX: I48.91 Unspecified atrial fibrillation (principal); Z79.01 Long term (current) use of anticoagulants
CPT/HCPCS: 36415; 85610

== ENCOUNTER 2020-11-16 03:11 | Outpatient (CLI) | payer MEDICARE, BC, SELFPAY ==
[2020-11-16 13:05] LABS: INR 2.4 (0.9-1.1)
== END 2020-11-16 03:12 | disposition home or self-care (01) ==
LOC: LOS 03:12
PROVIDERS: Family Medicine; PCP Emergency Medicine; Visit Provider Emergency Medicine
DX: I48.91 Unspecified atrial fibrillation (principal); Z79.01 Long term (current) use of anticoagulants
CPT/HCPCS: 36415; 85610

== ENCOUNTER 2021-01-03 02:02 | Outpatient (CLI) | payer MEDICARE, BC, SELFPAY ==
[2021-01-03 12:50] LABS: Prothrombin Time 23.1 sec (9.3-11.0)
[2021-01-03 12:59] LABS: INR 2.3 (0.9-1.1)
[2021-01-03 13:28] LABS: Abs Immature Grans 0.02 10^3/uL (0.0-0.06); Absolute Basophil Count 0.03 10^3/uL (0.0-0.2); Absolute Eosinophil Count 0.11 10^3/uL (0.0-0.7); Absolute Lymphocyte Count 0.96 10^3/uL (1.2-3.4); Absolute Neutrophil Count 4.07 10^3/uL (1.2-6.7); Basophils % 0.5; Eosinophils % 1.9; HCT 39.8 % (40.0-50.0); HGB 13.3 g/dL (13.5-17.5); Immature Grans % 0.4; Lymphocytes % 16.9; MCHC 33.4 % (32.0-36.0); MCV 89.8 fL (80-95); MPV 11.7 fL (8.0-11.0); Monocytes % 8.8; Neutrophils % 71.5; Nucleated RBC 0 %; Platelet Count 234 10^3/uL (130-400); RBC 4.43 10^6/uL (4.36-5.78); RDW 14.8 % (11.8-14.1); RDW-SD 48.4 fL; WBC 5.69 10^3/uL (4.4-10.8)
[2021-01-03 13:45] LABS: ALT 35 U/L (16-63); AST 29 U/L (15-37); Albumin 3.8 g/dL (3.4-5.0); Alkaline Phosphatase 66 U/L (46-116); Anion Gap 9.8 mmol/L (3-11); BUN 20 mg/dL (7-18); Bilirubin, Total 0.7 mg/dL (0.2-1.0); CO2 25.2 mmol/L (21.0-32.0); CREATININE 0.9 mg/dL (0.70-1.30); Calcium 8.9 mg/dL (8.5-10.1); Chloride 105 mmol/L (98-107); Glucose 90 mg/dL (74-106); Potassium 4.6 mmol/L (3.5-5.1); Sodium 140 mmol/L (136-145); Total Protein 6.9 g/dL (6.4-8.2)
[2021-01-04 15:00] LABS: PSA, Ultrasensitive 0.03 ng/mL (<= 6.5)
== END 2021-01-03 02:03 | disposition home or self-care (01) ==
LOC: LOS 02:03
PROVIDERS: Nurse Practitioner Adult Health; PCP Emergency Medicine; Visit Provider Family Medicine
DX: I48.91 Unspecified atrial fibrillation (principal); Z79.01 Long term (current) use of anticoagulants; C61 Malignant neoplasm of prostate
CPT/HCPCS: 36415; 80053; 84153; 84403; 85025; 85610

== ENCOUNTER 2021-01-31 02:51 | Outpatient (CLI) | payer MEDICARE, BC, SELFPAY ==
[2021-01-31 13:10] LABS: Prothrombin Time 27.9 sec (9.3-11.0)
[2021-01-31 13:15] LABS: INR 2.8 (0.9-1.1)
== END 2021-01-31 02:52 | disposition home or self-care (01) ==
LOC: LOS 02:51
PROVIDERS: PCP Emergency Medicine; Visit Provider Emergency Medicine
DX: I48.91 Unspecified atrial fibrillation (principal); Z79.01 Long term (current) use of anticoagulants
CPT/HCPCS: 36415; 85610

== ENCOUNTER 2021-03-09 00:54 | Outpatient (CLI) | payer MEDICARE, BC, SELFPAY ==
[2021-03-09 11:09] LABS: INR 2.9 (0.9-1.1); Prothrombin Time 28.3 sec (9.3-11.0)
== END 2021-03-09 00:55 | disposition home or self-care (01) ==
LOC: LOS 00:54
PROVIDERS: PCP Emergency Medicine; Visit Provider Emergency Medicine
DX: I48.91 Unspecified atrial fibrillation (principal); Z79.01 Long term (current) use of anticoagulants
CPT/HCPCS: 36415; 85610

== ENCOUNTER 2021-04-06 02:26 | Outpatient (CLI) | payer MEDICARE, BC, SELFPAY ==
[2021-04-06 13:12] LABS: Prothrombin Time 29.2 sec (9.3-11.0)
== END 2021-04-06 02:27 | disposition home or self-care (01) ==
LOC: LOS 02:34
PROVIDERS: PCP Emergency Medicine; Visit Provider Emergency Medicine
DX: I48.91 Unspecified atrial fibrillation (principal); Z79.01 Long term (current) use of anticoagulants
CPT/HCPCS: 36415; 85610

== ENCOUNTER 2021-04-30 03:07 | Outpatient (CLI) | payer MEDICARE, BC, SELFPAY ==
[2021-04-30 13:00] LABS: Abs Immature Grans 0.01 10^3/uL (0.0-0.06); Absolute Basophil Count 0.05 10^3/uL (0.0-0.2); Absolute Eosinophil Count 0.21 10^3/uL (0.0-0.7); Absolute Monocyte Count 0.58 10^3/uL (0.1-0.8); Absolute Neutrophil Count 4.69 10^3/uL (1.2-6.7); Basophils % 0.7; Eosinophils % 3.1; HCT 39.9 % (40.0-50.0); HGB 13.3 g/dL (13.5-17.5); Immature Grans % 0.1; MCH 30.4 pg (27.0-33.0); MCHC 33.3 % (32.0-36.0); MCV 91.3 fL (80-95); MPV 10.5 fL (8.0-11.0); Monocytes % 8.5; Neutrophils % 68.6; Nucleated RBC 0 %; Platelet Count 218 10^3/uL (130-400); RBC 4.37 10^6/uL (4.36-5.78); RDW 14.9 % (11.8-14.1); RDW-SD 50.1 fL; WBC 6.84 10^3/uL (4.4-10.8)
[2021-04-30 13:11] LABS: INR 3.2 (0.9-1.1)
[2021-04-30 13:20] LABS: ALT 39 U/L (16-63); AST 30 U/L (15-37); Albumin 3.8 g/dL (3.4-5.0); Alkaline Phosphatase 72 U/L (46-116); Anion Gap 6.9 mmol/L (3-11); BUN 17 mg/dL (7-18); Bilirubin, Total 0.6 mg/dL (0.2-1.0); CO2 30.1 mmol/L (21.0-32.0); Chloride 104 mmol/L (98-107); Glucose 100 mg/dL (74-106); Potassium 4.2 mmol/L (3.5-5.1); Sodium 141 mmol/L (136-145); Total Protein 7.5 g/dL (6.4-8.2)
[2021-05-01 16:35] LABS: PSA, Ultrasensitive 0.05 ng/mL (<= 6.5)
[2021-05-02 12:02] LABS: Testosterone, Total 285 ng/dL (240-950)
== END 2021-04-30 03:08 | disposition home or self-care (01) ==
LOC: LBO 03:07
PROVIDERS: PCP Emergency Medicine; Visit Provider Nurse Practitioner Adult Health
DX: C61 Malignant neoplasm of prostate (principal); I48.91 Unspecified atrial fibrillation; Z79.01 Long term (current) use of anticoagulants
CPT/HCPCS: 36415; 80053; 84153; 84403; 85025; 85610

== ENCOUNTER 2021-05-15 08:57 | Outpatient (CLI) | payer MEDICARE, BC, SELFPAY ==
[2021-05-15 12:29] LABS: Prothrombin Time 24.1 sec (9.3-11.0)
[2021-05-15 12:36] LABS: INR 2.4 (0.9-1.1)
== END 2021-05-15 08:58 | disposition home or self-care (01) ==
LOC: LOS 09:00
PROVIDERS: PCP Emergency Medicine; Visit Provider Emergency Medicine
DX: I48.91 Unspecified atrial fibrillation (principal)
CPT/HCPCS: 36415; 85610

== ENCOUNTER 2021-06-21 01:55 | Outpatient (CLI) | payer MEDICARE, BC, SELFPAY ==
--- NOTE | 2021-06-21 07:45 | DI.US_ITS ---
Exam(s) US CAROTID EXAM: US CAROTID CLINICAL HISTORY: blurring left eye,H53.8. TECHNIQUE: Ultrasound carotids performed using grayscale, color-flow, and spectral Doppler imaging. COMPARISON: US US RENAL from 02/14/2020 FINDINGS: CAROTID ARTERIES: There is some plaque noted bilaterally at distal common carotid arteries and carotid bifurcations/car otid bulbs. No associated elevated velocities. Also no prominent plaque evident in the proximal int ernal carotid arteries on either side nor within the internal carotid arteries in the mid-upper neck. Also no elevated velocities at these levels. VERTEBRAL ARTERIES: Flow is demonstrated be antegrade in both vertebral arteries. Measurements: R Bulb: 77.8cm/s PS / 12.9cm/s ED R CCA: PS / ED R ECA: 82.3cm/s PS / 10.3cm/s ED R ICA Prox: 67.5cm/s PS /23.8cm/s ED R ICA Mid: 72.6cm/s PS / 23.1cm/s ED R ICA Distal: 70.1cm/s PS /22.5cm/s ED R Vert: 36cm/s PS / 10.9cm/s ED R SVR: 0.74 R DVR: 1.5 L Bulb: 52.7cm/s PS /13.5cm/s ED L CCA: 75.2cm/s PS / 14.1cm/s ED L ECA: 70.7cm/s PS /10.3cm/s ED L ICA Prox:70.7cm/s PS / 26.4cm/s ED L ICA Mid: 76.5cm/sPS / 22.5cm/s ED L ICA Distal: 62.3cm/s PS / 24.4cm/s ED L Vert: 53.3cm/s PS / 17.4cm/s ED L SVR: 1.02 L DVR: 1.6 IMPRESSION: No evidence for hemodynamically significant carotid stenosis. Mild plaque noted bilaterally as descr ibed above. Criteria for Carotid Stenosis: Normal: ICA PSV <125 cm/s no plaque or intimal thickening is visible. <50% stenosis: ICA PSV <125 cm/s and plaque or intimal thickening is visible. 50-69% stenosis: ICA PSV is 125-250 cm/s and plaque is visible. >70% stenosis to near occlusion: ICA PSV >250 cm/s with visible plaque and luminal narrowing. DATA REPOSITORY:
== END 2021-06-21 02:15 ==
PROVIDERS: PCP Emergency Medicine; Visit Provider Emergency Medicine
DX: H53.8 Other visual disturbances (principal)
CPT/HCPCS: 36415; 85610; 93880

== ENCOUNTER 2021-06-21 02:32 | Outpatient (CLI) | payer MEDICARE, BC, SELFPAY ==
[2021-06-21 10:12] LABS: Prothrombin Time 39.4 sec (9.3-11.0)
[2021-06-21 13:15] LABS: INR 4.1 (0.9-1.1)
== END 2021-06-21 02:33 | disposition home or self-care (01) ==
LOC: LBO 02:32
PROVIDERS: PCP Emergency Medicine; Visit Provider Emergency Medicine
DX: I48.91 Unspecified atrial fibrillation (principal)
CPT/HCPCS: 36415; 85610

== ENCOUNTER 2021-07-04 08:45 | Outpatient (CLI) | payer MEDICARE, BC, SELFPAY ==
[2021-07-04 14:33] LABS: INR 2.4 (0.9-1.1); Prothrombin Time 23.9 sec (9.3-11.0)
== END 2021-07-04 08:46 | disposition home or self-care (01) ==
LOC: LBO 08:47
PROVIDERS: PCP Emergency Medicine; Visit Provider Emergency Medicine
DX: I48.91 Unspecified atrial fibrillation (principal); Z79.01 Long term (current) use of anticoagulants
CPT/HCPCS: 36415; 85610

== ENCOUNTER 2021-08-23 02:46 | Outpatient (CLI) | payer MEDICARE, BC, SELFPAY ==
[2021-08-23 10:32] LABS: Abs Immature Grans 0.02 10^3/uL (0.0-0.06); Absolute Basophil Count 0.04 10^3/uL (0.0-0.2); Absolute Eosinophil Count 0.13 10^3/uL (0.0-0.7); Absolute Lymphocyte Count 1.06 10^3/uL (1.2-3.4); Absolute Monocyte Count 0.55 10^3/uL (0.1-0.8); Absolute Neutrophil Count 4.39 10^3/uL (1.2-6.7); Basophils % 0.6; Eosinophils % 2.1; HCT 39.6 % (40.0-50.0); HGB 13.3 g/dL (13.5-17.5); Immature Grans % 0.3; Lymphocytes % 17.1; MCHC 33.6 % (32.0-36.0); MCV 89.4 fL (80-95); Monocytes % 8.9; Nucleated RBC 0 %; Platelet Count 224 10^3/uL (130-400); RBC 4.43 10^6/uL (4.36-5.78); RDW 14.1 % (11.8-14.1); RDW-SD 46.1 fL; WBC 6.19 10^3/uL (4.4-10.8)
[2021-08-23 12:25] LABS: ALT 31 U/L (16-63); AST 24 U/L (15-37); Alkaline Phosphatase 64 U/L (46-116); Anion Gap 5.5 mmol/L (3-11); BUN 20 mg/dL (7-18); Bilirubin, Total 0.8 mg/dL (0.2-1.0); CO2 27.5 mmol/L (21.0-32.0); CREATININE 0.9 mg/dL (0.70-1.30); Calcium 8.8 mg/dL (8.5-10.1); Chloride 105 mmol/L (98-107); Glucose 88 mg/dL (74-106); Potassium 4.3 mmol/L (3.5-5.1); Sodium 138 mmol/L (136-145); Total Protein 7.3 g/dL (6.4-8.2)
[2021-08-24 19:24] LABS: PSA, Ultrasensitive 0.05 ng/mL (<= 6.5)
[2021-08-30 10:29] LABS: Testosterone, Total 415 ng/dL (240-950)
== END 2021-08-23 02:47 | disposition home or self-care (01) ==
LOC: LBO 02:46
PROVIDERS: PCP Emergency Medicine; Visit Provider Internal Medicine
DX: C61 Malignant neoplasm of prostate (principal)
CPT/HCPCS: 36415; 80053; 84153; 84403; 85025

== ENCOUNTER 2021-10-23 09:12 | Outpatient (CLI) | payer MEDICARE, BC, SELFPAY ==
--- NOTE | 2021-10-23 06:00 | DI.RAD_ITS ---
Exam(s) XR PAIN CLINIC SACRIOILIAC 2V EXAM: XR PAIN CLINIC SACRIOILIAC 2V CLINICAL HISTORY: Dx: Sacroiliac Joint Dysfunction TECHNIQUE: 2D and realtime digital imaging was performed. CONTRAST MATERIAL: Refer to procedure report. COMPARISON: No exams were available for comparison FINDINGS: Fluoroscopy was provided for Dr. Gonzalez during the performance of a right SI joint injection. Please refer to the procedure report for complete details. Ka,r=8.62 mGy IMPRESSION:
[2021-10-23 09:19] VITALS: BP 114/80; PULSE 65; RESP 18; TEMP 36.5; O2SAT 100
[2021-10-23 10:07] VITALS: BP 149/74; PULSE 86; RESP 15; O2SAT 98
[2021-10-23] MEDS: methylPREDNISolone ACETATE 80 MG/ML VIAL IJ (10:07)
[2021-10-23] MEDS: Omnipaque 240 MG/ML 50 ML BTL IJ (10:07)
--- NOTE | 2021-10-23 10:12 | PDOC.PAIN_ITS ---
Pain Clinic Procedure Note Procedure Note Procedure Note: INTRA-ARTICULAR SI JOINT INJECTION Edinson Samuels has been referred to the [facility] for intra-articular SI joint injection. COMMENTS: I previously evaluated him in the office on 09/18/21. His Pre-procedure pain VAS was 2/10. DX: Right sacroiliac joint dysfunction Patient was interviewed and the medical record reviewed. There were no medical, pharmacologic, radiographic or other structural contraindications to attempting fluoroscopically guided intra-articular SI joint injection. Risks and expected side effects as well as potential benefit of the procedure were reviewed and voiced concerns addressed. The printed consent form was signed and witnessed. Standard time-out procedure was performed. Patient was placed in the prone position on the fluoroscopy table and automated blood pressure cuff and pulse oximeter applied. The skin entry point for approaching the right SI joint was identified under the most advantageous fluoroscopic view and marked. Following thorough Chlorhexadine preparation of the skin and draping and 1% lidocaine infiltration of the skin entry point and subcutaneous tissues, a 22 gauge spinal needle was placed under fluoroscopic guidance into the right SI joint was identified under the most advantageous fluoroscopic view and marked. Following thorough Chlorhexadine preparation of the skin and draping and 1% lidocaine infiltration of the skin entry point and subcutaneous tissues, a 22 gauge spinal needle was placed under fluoroscopic guidance into the right SI joint. Intra-articular placement was confirmed by a clear arthrogram resulting from the injection of 0.25ml Omnipaque 240, 1ml 1% lidocaine, and 40mg Depomedrol were injected intra-articularily with an initial reproduction of a significant component of the usual pain. Vital signs were stable throughout the procedure and were as recorded in the docflowsheet by the nursing staff. If given, dosages of intravenous drugs for anxiolysis and analgesia were documented in MAR. Follow up plans and appointments were discussed with the patient. Post procedure instruction was given as documented in nursing documentation and having met discharge criteria, and was discharged from the Pain Management Center. COMMENTS: Post-procedure pain VAS was 0/10. Francesco Gonzalez DO, MPH [facility]-Pain Management [facility] CC: Mohsen Osuna
== END 2021-10-23 09:13 | disposition home or self-care (01) ==
LOC: PC 09:13
PROVIDERS: PCP Family Medicine; Visit Provider Preventive Medicine Occupational Medicine
DX: M53.3 Sacrococcygeal disorders, not elsewhere classified (principal)
CPT/HCPCS: 27096; 72200; J1040; Q9967

== ENCOUNTER 2021-11-05 10:20 | Outpatient (REF) | payer MEDICARE, BC, SELFPAY ==
[2021-11-09 17:55] LABS: Pancreatic Elastase, F >500 mcg/g
== END 2021-11-05 10:21 | disposition home or self-care (01) ==
LOC: LBN 10:20
PROVIDERS: PCP Family Medicine; Visit Provider Internal Medicine Gastroenterology
DX: K52.9 Noninfective gastroenteritis and colitis, unspecified (principal); K50.00 Crohn's disease of small intestine without complications
CPT/HCPCS: 82656

== ENCOUNTER 2021-12-27 04:08 | Outpatient (CLI) | payer MEDICARE, BC, SELFPAY | END 2021-12-27 04:09 | disposition home or self-care (01) | LOC: LBO 04:12 | PROVIDERS: PCP Family Medicine; Visit Provider Family Medicine ==

== ENCOUNTER 2021-12-27 12:23 | Outpatient (CLI) | payer MEDICARE, BC, SELFPAY ==
[2021-12-27 11:30] LABS: Abs Immature Grans 0.02 10^3/uL (0.0-0.06); Absolute Basophil Count 0.06 10^3/uL (0.0-0.2); Absolute Eosinophil Count 0.26 10^3/uL (0.0-0.7); Absolute Lymphocyte Count 0.97 10^3/uL (1.2-3.4); Absolute Monocyte Count 0.74 10^3/uL (0.1-0.8); Absolute Neutrophil Count 5.23 10^3/uL (1.2-6.7); Basophils % 0.8; Eosinophils % 3.6; HCT 38.2 % (40.0-50.0); HGB 12.9 g/dL (13.5-17.5); Immature Grans % 0.3; Lymphocytes % 13.3; MCH 30.1 pg (27.0-33.0); MCHC 33.8 % (32.0-36.0); MCV 89 fL (80-95); MPV 10.1 fL (8.0-11.0); Monocytes % 10.2; Neutrophils % 71.8; Platelet Count 248 10^3/uL (130-400); RBC 4.28 10^6/uL (4.36-5.78); RDW 14.6 % (11.8-14.1); RDW-SD 46.6 fL; WBC 7.28 10^3/uL (4.4-10.8)
[2021-12-27 11:40] LABS: ALT 36 U/L (16-63); AST 30 U/L (15-37); Albumin 3.8 g/dL (3.4-5.0); Alkaline Phosphatase 78 U/L (46-116); Anion Gap 8.6 mmol/L (3-11); BUN 18 mg/dL (7-18); Bilirubin, Total 0.7 mg/dL (0.2-1.0); CO2 25.4 mmol/L (21.0-32.0); Chloride 105 mmol/L (98-107); Glucose 97 mg/dL (74-106); Potassium 4.4 mmol/L (3.5-5.1); Sodium 139 mmol/L (136-145); Total Protein 7.6 g/dL (6.4-8.2)
[2021-12-29 12:03] LABS: PSA, Ultrasensitive 0.12 ng/mL (<= 6.5)
[2021-12-30 18:52] LABS: Testosterone, Total 337 ng/dL (240-950)
== END 2021-12-27 12:24 | disposition home or self-care (01) ==
LOC: LBO 12:23
PROVIDERS: PCP Family Medicine; Visit Provider Nurse Practitioner Adult Health
DX: C61 Malignant neoplasm of prostate (principal)
CPT/HCPCS: 36415; 80053; 84153; 84403; 85025

== ENCOUNTER 2021-12-28 01:30 | Outpatient (CLI) | payer MEDICARE, BC, SELFPAY | END 2021-12-28 01:31 | disposition home or self-care (01) | LOC: LBO 01:30 | PROVIDERS: PCP Family Medicine; Visit Provider Internal Medicine Hematology & Oncology ==

== ENCOUNTER 2022-02-26 01:48 | Outpatient (CLI) | payer MEDICARE, BC, SELFPAY ==
[2022-02-26 15:38] LABS: INR 1.1 (0.9-1.1); Prothrombin Time 10.6 sec (9.3-11.0)
[2022-03-01 10:11] LABS: PSA, Ultrasensitive 0.06 ng/mL (<= 6.5)
== END 2022-02-26 01:49 | disposition home or self-care (01) ==
PROVIDERS: PCP Family Medicine; Visit Provider Nurse Practitioner Family
DX: C61 Malignant neoplasm of prostate (principal); I48.20 Chronic atrial fibrillation, unspecified; Z79.01 Long term (current) use of anticoagulants
CPT/HCPCS: 36415; 84153; 85610

== ENCOUNTER 2022-02-28 09:06 | Outpatient (CLI) | payer MEDICARE, BC, SELFPAY ==
--- NOTE | 2022-02-28 08:45 | DI.RAD_ITS ---
Exam(s) XR FOOT LT COMPLETE EXAM: XR FOOT LT COMPLETE CLINICAL HISTORY: left foot pain. TECHNIQUE: 2D digital imaging was performed. Three views. COMPARISON: No exams were available for comparison FINDINGS: BONES: No acute fracture is present. No bony destructive lesion is seen. JOINTS: No dislocation present. Mild degenerative changes SOFT TISSUE: Vascular calcifications. IMPRESSION: Mild degenerative changes and vascular calcifications DATA REPOSITORY: RADIATION DOSE DELIVERED:
== END 2022-02-28 09:07 | disposition home or self-care (01) ==
LOC: DIORS 09:08
PROVIDERS: PCP Family Medicine; Referring Provider Family Medicine; Visit Provider Student in an Organized Health Care Education/Training Program
DX: M76.72 Peroneal tendinitis, left leg
CPT/HCPCS: 99213; 73630

== ENCOUNTER 2022-03-20 04:20 | Outpatient (CLI) | payer MEDICARE, BC, SELFPAY ==
[2022-03-20 13:04] LABS: Anion Gap 3.3 mmol/L (3-11); BUN 17 mg/dL (7-18); CO2 31.7 mmol/L (21.0-32.0); CREATININE 1.2 mg/dL (0.70-1.30); Calcium 9.1 mg/dL (8.5-10.1); Calculated LDL 55 mg/dL (<100); Chloride 103 mmol/L (98-107); Cholesterol 154 mg/dL (<200); Estimated GFR 62.67 (mL/min/1.73m2); Glucose 101 mg/dL (74-106); HDL Cholesterol 86 mg/dL (40-60); Potassium 4.7 mmol/L (3.5-5.1); Sodium 138 mmol/L (136-145); Triglyceride 67 mg/dL (<150)
== END 2022-03-20 04:21 | disposition home or self-care (01) ==
LOC: LOS 04:20
PROVIDERS: PCP Family Medicine; Visit Provider Family Medicine
DX: I48.91 Unspecified atrial fibrillation (principal); Z00.00 Encounter for general adult medical examination without abnormal findings
CPT/HCPCS: 36415; 80048; 80061

== ENCOUNTER 2022-04-10 09:57 | Outpatient (CLI) | payer MEDICARE, BC, SELFPAY ==
--- NOTE | 2022-04-10 06:00 | DI.RAD_ITS ---
Exam(s) XR PAIN CLINIC LUMBAR SP 2V EXAM: XR PAIN CLINIC LUMBAR SP 2V CLINICAL HISTORY: Dx:Lumbar Spondylosis TECHNIQUE: 2D and realtime digital imaging was performed. COMPARISON: No exams were available for comparison FINDINGS: C-arm fluoroscopy was utilized by Dr. Gonzalez. Hard copies show apparent facet injections bilaterally a t L3-4 and L4-5. IMPRESSION: RADIATION DOSE DELIVERED: Kar=14.55 mGy
[2022-04-10 10:08] VITALS: BP 137/72; PULSE 72; RESP 20; TEMP 36.6; O2SAT 99
[2022-04-10 10:53] VITALS: BP 158/86; PULSE 64; RESP 16; O2SAT 99
--- NOTE | 2022-04-10 10:53 | PDOC.PAIN ---
Pain Clinic Procedure Note Procedure Note Procedure Note: Lumbar/Sacral Medial Branch Blocks #1 Edinson Samuels has been referred to the Pain Management Center for lumbar/sacral medial branch blocks. COMMENTS: He was previously evaluated in the office. Pre-procedure pain VAS was 4/10. Dx: Lumbosacral spondylosis without myelopathy Patient was interviewed and the medical record reviewed. There were no medical, pharmacologic, radiographic or other structural contraindications to attempting fluoroscopically guided local anesthetic lumbar/sacral medial branch blocks. Risks and expected side effects as well as potential benefit of the procedure were reviewed and voiced concerns addressed. The printed consent form was signed and witnessed. Standard time-out procedure was performed. Patient was placed in the prone position on the fluoroscopy table and automated blood pressure cuff and pulse oximeter applied. The skin entry points for approaching the anatomic target points of the segmental medial branches of the bilateral L3, L4, and L5DR were identified with anfluoroscopy and marked. Following thorough Chlorhexadine preparation of the skin and draping and 1% lidocaine infiltration of the skin entry points and subcutaneous tissues, a 22 gauge spinal needle was placed under fluoroscopic guidance down on to the target point for each respective segmental medial branch.Position was confirmed in A/P, oblique and lateral views with 0.25ml of omnipaque 240. At this point I injected 0.5ml of 0.5% Bupivacaine at each segmental sensory nerve. Vital signs were stable throughout the procedure and were as recorded in the docflowsheet by the nursing staff. Follow up plans and appointments were discussed and was instructed to keep careful note of how the usual pain was modified by these injections. Specifically was asked to keep a pain diary for the next 4 hours using a numeric pain scale of 0-10 and report these results at the follow-up visit. Post procedure instruction was given as documented in the nursing documentation and having met discharge criteria. Patient was discharged from the Pain Management Center. Based on the medial branches blocked today, if the patient has adequate relief and we are able to proceed to radiofrequency ablation, the treatment should result in the denervation of the bilateral L4-L5 and L5-S1 FACET JOINTS. We would expect to denervate a total of 4 facets during the radiofrequency ablation. COMMENTS: Post-procedure pain VAS was 0/10 Francesco Gonzalez DO, MPH [facility]Pain Management [facility] CC: Mahnaz Sims
[2022-04-10] MEDS: Bupivacaine 0.5% Pres-Free 10 ML VIAL IJ (11:02)
[2022-04-10] MEDS: Omnipaque 240 MG/ML 50 ML BTL IJ (11:03)
== END 2022-04-10 09:58 | disposition home or self-care (01) ==
LOC: PC 09:58
PROVIDERS: PCP Family Medicine; Visit Provider Preventive Medicine Occupational Medicine
DX: M47.817 Spondylosis without myelopathy or radiculopathy, lumbosacral region (principal); M54.50 Low back pain, unspecified
CPT/HCPCS: 64493; 64494; 72100; Q9967

== ENCOUNTER 2022-04-30 03:41 | Outpatient (CLI) | payer MEDICARE, BC, SELFPAY ==
[2022-04-30 10:13] LABS: Abs Immature Grans 0.02 10^3/uL (0.0-0.06); Absolute Basophil Count 0.06 10^3/uL (0.0-0.2); Absolute Eosinophil Count 0.21 10^3/uL (0.0-0.7); Absolute Lymphocyte Count 1.17 10^3/uL (1.2-3.4); Absolute Monocyte Count 0.65 10^3/uL (0.1-0.8); Absolute Neutrophil Count 4.12 10^3/uL (1.2-6.7); Eosinophils % 3.4; HCT 39.4 % (40.0-50.0); HGB 13.8 g/dL (13.5-17.5); Immature Grans % 0.3; Lymphocytes % 18.8; MCH 30.6 pg (27.0-33.0); MCV 87 fL (80-95); MPV 10.3 fL (8.0-11.0); Monocytes % 10.4; Neutrophils % 66.1; Platelet Count 239 10^3/uL (130-400); RBC 4.51 10^6/uL (4.36-5.78); RDW 14.6 % (11.8-14.1); RDW-SD 47.1 fL; WBC 6.23 10^3/uL (4.4-10.8)
[2022-04-30 10:43] LABS: ALT 31 U/L (16-63); AST 22 U/L (15-37); Alkaline Phosphatase 76 U/L (46-116); Anion Gap 7.2 mmol/L (3-11); BUN 20 mg/dL (7-18); Bilirubin, Total 0.8 mg/dL (0.2-1.0); CO2 25.8 mmol/L (21.0-32.0); CREATININE 1.3 mg/dL (0.70-1.30); Calcium 9.1 mg/dL (8.5-10.1); Chloride 103 mmol/L (98-107); Estimated GFR 56.93 (mL/min/1.73m2); Glucose 85 mg/dL (74-106); Potassium 4.3 mmol/L (3.5-5.1); Sodium 136 mmol/L (136-145); Total Protein 7.9 g/dL (6.4-8.2)
[2022-05-01 16:58] LABS: PSA, Ultrasensitive 0.05 ng/mL (<= 6.5)
[2022-05-03 12:14] LABS: Testosterone, Total 295 ng/dL (240-950)
== END 2022-04-30 03:42 | disposition home or self-care (01) ==
LOC: LBO 03:41
PROVIDERS: Nurse Practitioner Family; PCP Family Medicine; Visit Provider Internal Medicine
DX: C61 Malignant neoplasm of prostate (principal)
CPT/HCPCS: 36415; 80053; 84153; 84403; 85025

== ENCOUNTER 2022-05-15 09:47 | Outpatient (CLI) | payer MEDICARE, BC, SELFPAY ==
[2022-05-15 09:24] VITALS: BP 132/83; PULSE 75; RESP 20; TEMP 36.4; O2SAT 100
--- NOTE | 2022-05-15 09:54 | DI.RAD_ITS ---
Exam(s) XR PAIN CLINIC LUMBAR SP 2V EXAM: XR PAIN CLINIC LUMBAR SP 2V CLINICAL HISTORY: Dx: Lumbar Spondylosis. TECHNIQUE: Fluoroscopy was provided for the referring physician for guidance with performing pain cl inic injection procedure. COMPARISON: No exams were available for comparison FINDINGS: Please see procedure note for details. Fluoro time: 59.1 seconds RADIATION DOSE DELIVERED: kali Valerio=12.94 mGy
[2022-05-15 10:00] VITALS: BP 149/86; PULSE 70; RESP 16; O2SAT 98
[2022-05-15] MEDS: Omnipaque 240 MG/ML 50 ML BTL IJ (10:02)
[2022-05-15] MEDS: Lidocaine 2% Pres-Free 5 ML VIAL IJ (10:03)
--- NOTE | 2022-05-15 10:05 | PDOC.PAIN_ITS ---
Date of service: 05/15/22 Time of Service: 10:06 Pain Clinic Procedure Note Procedure Note Procedure Note: Lumbar/Sacral Medial Branch Blocks Edinson Samuels has been referred to the Pain Management Center for lumbar/sacral medial branch blocks. COMMENTS: He did very well with his first LMBB. Pre-procedure pain VAS was 4/10. Dx: Lumbosacral spondylosis without myelopathy Patient was interviewed and the medical record reviewed. There were no medical, pharmacologic, radiographic or other structural contraindications to attempting fluoroscopically guided local anesthetic lumbar/sacral medial branch blocks. Risks and expected side effects as well as potential benefit of the procedure were reviewed and voiced concerns addressed. The printed consent form was signed and witnessed. Standard time-out procedure was performed. Patient was placed in the prone position on the fluoroscopy table and automated blood pressure cuff and pulse oximeter applied. The skin entry points for approaching the anatomic target points of the segmental medial branches of bilateral L3-L5 were identified with anfluoroscopy and marked. Following thorough Chlorhexadine preparation of the skin and draping and 1% lidocaine infiltration of the skin entry points and subcutaneous tissues, a 25 gauge 3.5 spinal needle was placed under fluoroscopic guidance down on to the target point for each respective segmental medial branch.Position was confirmed in A/P, oblique and lateral views with 0.25ml of omnipaque 240. At this point I injected 0.5cc of 2% Lidocaine at each segmental sensory nerve. Vital signs were stable throughout the procedure and were as recorded in the docflowsheet by the nursing staff. Follow up plans and appointments were discussed and was instructed to keep careful note of how the usual pain was modified by these injections. Specifically was asked to keep a pain diary for the next 4 hours using a numeric pain scale of 0-10 and report these results at the follow-up visit. Post procedure instruction was given as documented in the nursing documentation and having met discharge criteria. Patient was discharged from the Pain Management Center. Based on the medial branches blocked today, if the patient has adequate relief and we are able to proceed to radiofrequency ablation, the treatment should result in the denervation of the bilateral L4-L5 and L5-S1 FACET JOINTS. We would expect to denervate a total of 4 facets during the radiofrequency ablation. COMMENTS: Post-procedure pain VAS = 0/10. Francesco Gonzalez DO, MPH [facility]-Pain Management [facility] for [facility] Management CC: Mahnaz Sims
== END 2022-05-15 09:48 | disposition home or self-care (01) ==
LOC: PC 05-21 09:47
PROVIDERS: PCP Family Medicine; Visit Provider Preventive Medicine Occupational Medicine
DX: M47.817 Spondylosis without myelopathy or radiculopathy, lumbosacral region (principal); M54.50 Low back pain, unspecified
CPT/HCPCS: 64493; 64494; 72100; Q9967

== ENCOUNTER 2022-06-28 10:46 | Outpatient (CLI) | payer MEDICARE, BC, SELFPAY ==
--- NOTE | 2022-06-28 10:30 | DI.RAD_ITS ---
Exam(s) XR KNEE LT 3V AP,LAT,TEJAL EXAM: XR KNEE LT 3V AP,LAT,TEJAL CLINICAL HISTORY: left knee pain. TECHNIQUE: 2D digital imaging was performed. COMPARISON: No exams were available for comparison FINDINGS: 3 views No evidence of fracture but there is a joint effusion in the suprapatellar bursa evident. Mild degen erative changes are evident. Sclerotic bone density is noted in the medial aspect the proximal diaphysis of the tibia, possibly si gnificant. Also noted is vascular calcification in the Posterior calf. Also in collateral vessels in the lower thigh. IMPRESSION: DATA REPOSITORY: RADIATION DOSE DELIVERED:
== END 2022-06-28 10:47 | disposition home or self-care (01) ==
LOC: DIORS 10:46
PROVIDERS: PCP Family Medicine; Referring Provider Family Medicine; Visit Provider Student in an Organized Health Care Education/Training Program
DX: S83.92XA Sprain of unspecified site of left knee, initial encounter (principal); X58.XXXA Exposure to other specified factors, initial encounter
CPT/HCPCS: 73562; 99213

== ENCOUNTER → 2022-07-05 00:24 | Outpatient (CLI) | payer MEDICARE, BC, SELFPAY ==
--- NOTE | 2022-07-05 06:45 | DI.NM_ITS ---
Exam(s) NM BONE SCAN WHOLE BODY GRP EXAM: OK BONE SCAN WHOLE BODY GRP CLINICAL HISTORY: eval bone lesion, h/o prostate CA, M89.9 disorder of bone. TECHNIQUE: Injected Dose: 25 mCi Tc-99m MDP Delayed Images: 2-3 hours. COMPARISON: CT CT RENAL COLIC WO from 02/14/2020 CR XR KNEE LT 3V AP,LAT,TEJAL from 06/28/[address] LOWER EXTREMITY LT WO from 07/05/2022 FINDINGS: Symmetric axial uptake. Bilateral renal excretion is identified. There is increased radiotracer uptak e seen in the left knee. It appears to be within the medial femoral condyle. There are areas of inc reased activity seen in the lumbar spine particularly at the L4-5 and L5-S1 levels. This corresponds to the marked degenerative changes seen in the lumbar spine from the CT scan from 02/14/2020. There i s increased radiotracer uptake seen at the right sternoclavicular joint which may be due to degenerat rosette changes. No other suspicious areas of increased radiotracer uptake are seen. There is no signif icant abnormal uptake seen in the left foot. There is no abnormal radiotracer uptake seen in the pro ximal left tibia to correspond to the area of sclerosis on the x-ray and CT scan of the knee. IMPRESSION: 1. No abnormal uptake seen in the proximal tibia to correspond to the area of sclerosis seen on the C T scan and x-ray. 2. Increased radiotracer uptake which appears to correspond to the medial femoral condyle. Review of the CT scan from the same day show some flattening and sclerosis of the medial femoral condyle suspi cious for osteochondral injury. An MRI should be considered for further evaluation. 3. Degenerative uptake seen within the axial skeleton. 4. No abnormal uptake is seen in the left foot. DATA REPOSITORY:
--- NOTE | 2022-07-05 06:45 | DI.RAD_ITS ---
Exam(s) XR TIB/FIB LT EXAM: XR TIB/FIB LT CLINICAL HISTORY: eval proximal tibia sclerosis, bone lesion, M89.9 disorder of bone. TECHNIQUE: 2D digital imaging was performed of the left tibia and fibula. Two images were obtained. AP and lateral views were obtained. COMPARISON: CR XR KNEE LT 3V AP,LAT,TEJAL from 06/28/2022 FINDINGS: BONES: No acute fracture is present. No bony destructive lesion is seen. There is again seen faint s clerosis involving the medial aspect of the proximal metaphysis of the left tibia. No destructive le candace is seen. No periosteal reaction is seen. Visualized portion of knee and ankle joints are unrem arkable. SOFT TISSUE: Vascular calcifications are present. IMPRESSION: Nonspecific sclerosis seen in the proximal tibia as described. Please refer to the CT scan of the le ft lower extremity and bone scan from the same day for complete details. DATA REPOSITORY: RADIATION DOSE DELIVERED:
--- NOTE | 2022-07-05 08:39 | DI.CT_ITS ---
Exam(s) CT LOWER EXTREMITY LT WO EXAM: CT LOWER EXTREMITY LT WO CLINICAL HISTORY: eval prox tib and lat foot, bone lesion, peroneal tendinitis, M89.9, M76.72. TECHNIQUE: Imaging Protocol: Axial computed tomography images with coronal and sagittal reformatted images were created and reviewed. COMPARISON: CR XR KNEE LT 3V AP,LAT,TEJAL from 06/28/2022 CR XR TIB/FIB LT from 07/05/2022 FINDINGS: CT scan of the left foot: Bones: The osseous structures and articular surfaces are intact. Bony alignment is satisfactory. T here is an os trigonum present. There is no evidence of joint space narrowing or cystic degeneration seen. No lytic or sclerotic lesions are identified. Soft Tissues: Extensive atherosclerosis is present. Bones: The osseous structures and articular surfaces are intact. Bony alignment is satisfactory. No cellulitic or osteomyelitic changes are identified. There is no evidence of joint space narrowing or cystic degeneration seen. Nonspecific area of sclerosis is seen in the medial proximal metaphysis of the tibia. The cortex is intact. No periosteal reaction is present. There is no associated soft ti ssue mass. Soft Tissues: There is extensive atherosclerosis present. The muscles are grossly unremarkable. No soft tissue mass is seen. IMPRESSION: 1. No acute bone or joint abnormality is seen in the foot. 2. There is extensive atherosclerosis present. 3. Nonspecific sclerosis seen in the proximal metaphysis of the left tibia. No associated cortical d estruction, periosteal reaction or soft tissue mass. No definite findings to suggest malignancy are seen. An MRI of the proximal tibia may be obtained for further evaluation. RADIATION DOSE DELIVERED: 717.57mGy.cm Total DLP 717.57mGy.cm Total DLP DATA REPOSITORY: All CT scans at this facility are submitted to the National Radiology Data Registry (NRDR) Dose Index Registry (DIR) with the [employer] ([employer]). RADIATION OPTIMIZATION: All CT scans at this facility use at least one of these dose optimization te chniques: automated exposure control; mA and/or kV adjustment per patient size (includes targeted exa ms where dose is matched to clinical indication); or iterative reconstruction.
== END ==
PROVIDERS: PCP Family Medicine; Visit Provider Student in an Organized Health Care Education/Training Program
DX: M76.72 Peroneal tendinitis, left leg (principal); M89.8X6 Other specified disorders of bone, lower leg
CPT/HCPCS: 78306; 73590; 73700

== ENCOUNTER 2022-07-17 12:52 | Outpatient (CLI) | payer MEDICARE, BC, SELFPAY ==
[2022-07-17 13:21] VITALS: BP 113/76; PULSE 71; RESP 20; TEMP 36.8; O2SAT 99
[2022-07-17] MEDS: fentaNYL 100 MCG/2 ML VIAL IVP (14:20)
[2022-07-17] MEDS: Midazolam 2 MG/2 ML VIAL IVP (14:21)
[2022-07-17] MEDS: Lactated Ringers 500 ML 80 ML IV (14:21)
--- NOTE | 2022-07-17 14:58 | DI.RAD_ITS ---
Exam(s) XR PAIN CLINIC LUMBAR SP 2V EXAM: XR PAIN CLINIC LUMBAR SP 2V CLINICAL HISTORY: Dx: lumbar Spondylosis. TECHNIQUE: Fluoroscopy was provided for the referring physician for guidance with performing pain cl inic injection procedure. COMPARISON: No exams were available for comparison FINDINGS: Please see procedure note for details. Fluoro time: 94.5 seconds RADIATION DOSE DELIVERED: kali Valerio=24.49 mGy
--- NOTE | 2022-07-17 15:00 | PDOC.PAIN_ITS ---
Date of service: 07/17/22 Time of Service: 15:47 Pain Clinic Procedure Note Procedure Note Procedure Note: Bilateral Lumbar Radiofrequency with the [employer] Machine PROCEDURE NOTE Date of Service: July 17, 2022 Patient: Edinson Samuels Provider: Francesco Gonzalez DO, MPH Pre Operative Diagnosis: Lumbosacral Spondylosis without Myelopathy Post Operative Diagnosis: Same Pre procedure pain; VAS= 2/10 Comments: He has a pacemaker/defibrillator and will be evaluated by cardiology directly afte this procedure. PROCEDURE: Radiofrequency Ablation of medial branches - Bilateral L3 L4 L5 and lateral branches of bilateral S1. Edinson Samuels was brought into the fluoroscopy suite and positioned into the prone position on the fluoroscopy table and allowed to adjust to a position of comfort. A grounding pad was placed on the left thigh. The lumbar region was widely prepped with a chloraprep solution, allowed to air dry and draped in standard sterile surgical fashion. Local anesthesia was provided by 4 mL of 2 % Lidocaine delivered with a 25g needle. A 17g 100 mm radiofrequency introducer needle was placed to the planned anatomic targets guided with intermittent fluoroscopy with a perpendicular approach to terminally place at the junction of the superior articular process and the transverse process of the bilateral L4 L5, the base of the sacral ala on the bilateral for the L5 medial branch nerve and the area between base of the sacral ala to the S1 foramen bilaterally. The stylets were removed and radiofrequency probes with a 4mm active tip were then inserted. Needle tip position of the probes was verified in the AP, oblique, and lateral views. At each site, the medial branch nerve was stimulated at 2 Hz to a maximum 1-2 volts determined to finalize safe needle and electrode placement. The patient was awake and responsive during this portion of the procedure. Each target was anesthetized with 1-2 mL of 2% Lidocaine for anesthesia for lesioning and then each target was lesioned at 80 degrees Celsius for 2 minutes and 30 seconds. Tissue i mpedences were noted to be between 250 and 500 Ohms. Electrodes and needles were then removed and bandages placed over the needle placement sites, the patient then returned to the supine position on a stretcher and transported to the recovery room without hemodynamic, neurologic, or allergic reactions. Fluoroscopic images were printed for hard copy recording and digitally archived. POST PROCEDURE EVALUATION: IMPRESSION: 1. Summary of procedure. Medication given is documented in the MAR. 2. The patient will be contacted in 1-3 weeks 3. Estimated Blood Loss: <5 mls 4. Fluoroscopy time: Documented in the EMR. Follow up plans and appointments were discussed with the Edinson . Post procedure instruction was given as documented in nursing documentation and having met discharge criteria, Edinson was [facility] from the [facility]. COMMENTS: No apparent complications. Post-procedure pain: VAS= 0/10. This procedure can be repeated if he gets at least 6 months of relief from this procedure. He was evaluated and cleared by cardiology (Dr. Georges), who interrogated his pacemaker. F/U with our office as needed. Francesco Gonzalez DO, MPH Attending Physician Pain Management
[2022-07-17 15:10] VITALS: BP 137/81; PULSE 76; RESP 20; O2SAT 99
[2022-07-17] MEDS: Lidocaine 2% Pres-Free 5 ML VIAL IJ (15:16)
[2022-07-17] MEDS: methylPREDNISolone ACETATE 40 MG/ML VIAL IJ (15:16)
[2022-07-17] MEDS: Bupivacaine 0.5% Pres-Free 10 ML VIAL IJ (15:17)
== END 2022-07-17 12:53 | disposition home or self-care (01) ==
LOC: PC 12:52
PROVIDERS: PCP Family Medicine; Visit Provider Preventive Medicine Occupational Medicine
DX: M47.817 Spondylosis without myelopathy or radiculopathy, lumbosacral region (principal); M54.50 Low back pain, unspecified
CPT/HCPCS: 64635; 64636; 72100; 93280; J1030; J2250; J3010

== ENCOUNTER → 2022-07-17 14:43 | Outpatient (BNVA) | payer MEDICARE, BC, SELFPAY | PROVIDERS: PCP Family Medicine; Referring Provider Family Medicine; Visit Provider Internal Medicine Cardiovascular Disease | DX: Z95.0 Presence of cardiac pacemaker (principal) | CPT/HCPCS: 93280 ==

== ENCOUNTER → 2022-07-23 09:54 | Outpatient (BNVA) | payer MEDICARE, BC, SELFPAY | PROVIDERS: PCP Family Medicine; Referring Provider Family Medicine; Visit Provider Surgery | DX: I70.8 Atherosclerosis of other arteries (principal); I48.20 Chronic atrial fibrillation, unspecified; G60.9 Hereditary and idiopathic neuropathy, unspecified; Z87.891 Personal history of nicotine dependence; Q79.1 Other congenital malformations of diaphragm; M41.20 Other idiopathic scoliosis, site unspecified; R29.898 Other symptoms and signs involving the musculoskeletal system | CPT/HCPCS: 93922 ==

== ENCOUNTER → 2022-07-29 10:16 | Outpatient (BNVA) | payer MEDICARE, BC, SELFPAY | PROVIDERS: PCP Family Medicine; Referring Provider Family Medicine; Visit Provider Student in an Organized Health Care Education/Training Program | DX: M95.8 Other specified acquired deformities of musculoskeletal system (principal); M25.562 Pain in left knee; Z85.46 Personal history of malignant neoplasm of prostate | CPT/HCPCS: 99214 ==

== ENCOUNTER 2022-09-05 02:51 | Outpatient (CLI) | payer MEDICARE, BC, SELFPAY ==
[2022-09-05 14:14] LABS: Abs Immature Grans 0.02 10^3/uL (0.0-0.06); Absolute Basophil Count 0.05 10^3/uL (0.0-0.2); Absolute Eosinophil Count 0.09 10^3/uL (0.0-0.7); Absolute Lymphocyte Count 1.32 10^3/uL (1.2-3.4); Absolute Monocyte Count 0.55 10^3/uL (0.1-0.8); Absolute Neutrophil Count 4.68 10^3/uL (1.2-6.7); Basophils % 0.7; Eosinophils % 1.3; HCT 39.5 % (40.0-50.0); Immature Grans % 0.3; Lymphocytes % 19.7; MCHC 32.9 % (32.0-36.0); MCV 91 fL (80-95); MPV 10.6 fL (8.0-11.0); Monocytes % 8.2; Neutrophils % 69.8; Nucleated RBC 0.3 % (0.0-0.3); Platelet Count 213 10^3/uL (130-400); RBC 4.33 10^6/uL (4.36-5.78); RDW 14.4 % (11.8-14.1); RDW-SD 48.7 fL; WBC 6.71 10^3/uL (4.4-10.8)
[2022-09-05 14:43] LABS: ALT 30 U/L (16-63); AST 27 U/L (15-37); Alkaline Phosphatase 77 U/L (46-116); Anion Gap 7.9 mmol/L (3-11); BUN 17 mg/dL (7-18); Bilirubin, Total 0.7 mg/dL (0.2-1.0); CO2 27.1 mmol/L (21.0-32.0); CREATININE 1.2 mg/dL (0.70-1.30); Calcium 8.9 mg/dL (8.5-10.1); Chloride 103 mmol/L (98-107); Estimated GFR 62.29 (mL/min/1.73m2); Glucose 104 mg/dL (74-106); Potassium 3.6 mmol/L (3.5-5.1); Sodium 138 mmol/L (136-145); Total Protein 7.6 g/dL (6.4-8.2)
[2022-09-07 13:19] LABS: PSA, Ultrasensitive 0.05 ng/mL (<= 6.5)
[2022-09-10 17:18] LABS: Testosterone, Total 272 ng/dL (240-950)
== END 2022-09-05 02:52 | disposition home or self-care (01) ==
PROVIDERS: PCP Family Medicine; Visit Provider Internal Medicine
DX: C61 Malignant neoplasm of prostate (principal)
CPT/HCPCS: 36415; 80053; 84153; 84403; 85025

== ENCOUNTER → 2022-09-23 13:43 | Outpatient (BNVA) | payer MEDICARE, BC, SELFPAY | PROVIDERS: PCP Family Medicine; Referring Provider Family Medicine; Visit Provider Student in an Organized Health Care Education/Training Program | DX: M95.8 Other specified acquired deformities of musculoskeletal system (principal); S83.242A Other tear of medial meniscus, current injury, left knee, initial encounter; X58.XXXA Exposure to other specified factors, initial encounter | CPT/HCPCS: 99213 ==

== ENCOUNTER 2022-12-05 03:05 | Outpatient (CLI) | payer MEDICARE, BC, SELFPAY ==
[2022-12-05 10:41] LABS: Abs Immature Grans 0.02 10^3/uL (0.0-0.06); Absolute Basophil Count 0.05 10^3/uL (0.0-0.2); Absolute Eosinophil Count 0.14 10^3/uL (0.0-0.7); Absolute Lymphocyte Count 1.23 10^3/uL (1.2-3.4); Absolute Monocyte Count 0.71 10^3/uL (0.1-0.8); Absolute Neutrophil Count 4.95 10^3/uL (1.2-6.7); Basophils % 0.7; HCT 38.6 % (40.0-50.0); HGB 13.1 g/dL (13.5-17.5); Immature Grans % 0.3; Lymphocytes % 17.3; MCH 30.2 pg (27.0-33.0); MCHC 33.9 % (32.0-36.0); MCV 89 fL (80-95); MPV 10.2 fL (8.0-11.0); Neutrophils % 69.7; Platelet Count 223 10^3/uL (130-400); RBC 4.34 10^6/uL (4.36-5.78); RDW 14.5 % (11.8-14.1); RDW-SD 46.7 fL
[2022-12-06 16:16] LABS: PSA, Ultrasensitive 0.05 ng/mL (<= 6.5)
[2022-12-10 15:44] LABS: Testosterone, Total 349 ng/dL (240-950)
== END 2022-12-05 03:06 | disposition home or self-care (01) ==
PROVIDERS: PCP Family Medicine; Visit Provider Nurse Practitioner Family
DX: C61 Malignant neoplasm of prostate (principal)
CPT/HCPCS: 36415; 84153; 84403; 85025

== ENCOUNTER 2023-03-31 04:26 | Outpatient (CLI) | payer MEDICARE, BC, SELFPAY ==
[2023-03-31 12:14] LABS: Absolute Basophil Count 0.06 10^3/uL (0.0-0.2); Absolute Eosinophil Count 0.12 10^3/uL (0.0-0.7); Absolute Lymphocyte Count 1.19 10^3/uL (1.2-3.4); Absolute Monocyte Count 0.55 10^3/uL (0.1-0.8); Absolute Neutrophil Count 4.42 10^3/uL (1.2-6.7); Basophils % 0.9; Eosinophils % 1.9; HCT 38.2 % (40.0-50.0); Lymphocytes % 18.8; MCH 30.2 pg (27.0-33.0); MCV 89 fL (80-95); MPV 11.6 fL (8.0-11.0); Monocytes % 8.7; Neutrophils % 69.7; Platelet Count 207 10^3/uL (130-400); RBC 4.31 10^6/uL (4.36-5.78); RDW 14.3 % (11.8-14.1); RDW-SD 45.8 fL; WBC 6.34 10^3/uL (4.4-10.8)
[2023-03-31 12:36] LABS: ALT 21 U/L (16-63); AST 28 U/L (15-37); Albumin 3.7 g/dL (3.4-5.0); Alkaline Phosphatase 70 U/L (46-116); Anion Gap 7.1 mmol/L (3-11); BUN 19 mg/dL (7-18); Bilirubin, Total 0.8 mg/dL (0.2-1.0); CO2 26.9 mmol/L (21.0-32.0); CREATININE 1.3 mg/dL (0.70-1.30); Calcium 9.2 mg/dL (8.5-10.1); Chloride 103 mmol/L (98-107); Estimated GFR 56.58 (mL/min/1.73m2); Glucose 119 mg/dL (74-106); Potassium 4.1 mmol/L (3.5-5.1); Sodium 137 mmol/L (136-145); Total Protein 7.2 g/dL (6.4-8.2)
[2023-04-01 18:17] LABS: PSA, Ultrasensitive 0.05 ng/mL (<= 6.5)
[2023-04-03 15:52] LABS: Testosterone, Total 385 ng/dL (240-950)
== END 2023-03-31 04:27 | disposition home or self-care (01) ==
LOC: LOS 04:26
PROVIDERS: Nurse Practitioner Family; PCP Family Medicine; Visit Provider Family Medicine
DX: C61 Malignant neoplasm of prostate (principal)
CPT/HCPCS: 36415; 80053; 84153; 84403; 85025

== ENCOUNTER → 2023-06-25 09:39 | Outpatient (CLI) | payer MEDICARE, BC, SELFPAY ==
--- NOTE | 2023-06-25 08:45 | DI.RAD_ITS ---
Exam(s) XR SHOULDER RT COMPLETE 2+V EXAM: XR SHOULDER RT COMPLETE 2+V CLINICAL HISTORY: right shoulder pain,m25.511. TECHNIQUE: 2D digital imaging was performed. Five views. COMPARISON: CR LEFT SHOULDER COMPLETE from 08/30/2017 FINDINGS: BONES: No acute fracture is present. No bony destructive lesion is seen. Prior resection of distal c lavicle. JOINTS: No dislocation present. Degenerative changes glenohumeral joint. Humeral head appears somew hat superiorly position which could represent chronic rotator cuff tear. Mild spurring a t undersurf vida of acromion. SOFT TISSUE: Normal. IMPRESSION: Degenerative changes of the glenohumeral joint. DATA REPOSITORY: RADIATION DOSE DELIVERED:
== END ==
PROVIDERS: PCP Family Medicine; Visit Provider Family Medicine
DX: M19.011 Primary osteoarthritis, right shoulder (principal)
CPT/HCPCS: 73030

== ENCOUNTER → 2023-07-15 14:20 | Outpatient (BNVA) | payer MEDICARE, BC, SELFPAY | PROVIDERS: PCP Family Medicine; Referring Provider Family Medicine; Visit Provider Student in an Organized Health Care Education/Training Program | DX: M12.811 Other specific arthropathies, not elsewhere classified, right shoulder (principal) | CPT/HCPCS: 99213 ==

== ENCOUNTER → 2023-07-25 01:06 | Outpatient (CLI) | payer MEDICARE, BC, SELFPAY ==
--- NOTE | 2023-07-25 | DI.US_ITS ---
Exam(s) US RENAL EXAM: US RENAL CLINICAL HISTORY: NEPHROLITHIASIS N20.0 7MM STONE, ? CHANGE IN SIZE OR NEW STONES. TECHNIQUE: Palomo scale, color and spectral Doppler were used. COMPARISON: CT CT RENAL COLIC WO from 02/14/2020 US US RENAL from 02/14/2020 FINDINGS: Renal size in cm: Right: 12.1. Left: 11.2. Echogenicity: Normal. Hydronephrosis: No. Cyst or mass: No. Nephrolithiasis: There is a 9 mm echogenic focus in the midpole of the right kidney. This was presen t on the prior examination. Other findings: None. Bladder:The urinary bladder was incompletely distended but grossly unremarkable. Ureteral jets: Right: Visualized and unremarkable. Left: Visualized and unremarkable. Prevoid vol:61 cc Postvoid vol:55 cc Prostate: 11 cc Renal color flow: Symmetric and within normal limits. IMPRESSION: 1. 9 mm echogenic focus in the midpole of the right kidney which appears stable and likely reflects a non obstructing stone. 2. Small postvoid urinary bladder volume. DATA REPOSITORY:
== END ==
PROVIDERS: PCP Family Medicine; Visit Provider Nurse Practitioner Family
DX: N20.0 Calculus of kidney (principal)
CPT/HCPCS: 76770

== ENCOUNTER → 2023-07-31 14:52 | Outpatient (CLI) | payer MEDICARE, BC, SELFPAY ==
--- NOTE | 2023-07-31 13:00 | DI.RAD_ITS ---
Exam(s) XR HIP RT COMPLETE AP PELVIS EXAM: XR HIP RT COMPLETE AP PELVIS CLINICAL HISTORY: M25.559 Pain in rt hip and groin. Groin pain on the right. TECHNIQUE: 2D digital imaging was performed. Two views COMPARISON: CR LUMBAR SPINE COMPLETE from 08/04/2015 FINDINGS: BONES: No acute fracture is present. No bony destructive lesion is seen. Severe degenerative change s again noted in the lower lumbar spine. JOINTS: No dislocation present. Hip joint spaces are maintained. Mild acetabular spurring. Mild s purring at the SI joints. SOFT TISSUE: Metallic densities in prostate. IMPRESSION: No acute abnormality. Mild degenerative changes of the hips. DATA REPOSITORY: RADIATION DOSE DELIVERED:
== END ==
PROVIDERS: PCP Family Medicine; Visit Provider Preventive Medicine Occupational Medicine
DX: M25.551 Pain in right hip (principal)
CPT/HCPCS: 73502

== ENCOUNTER 2023-09-03 20:54 | Outpatient (REF) | payer MEDICARE, BC, SELFPAY | END 2023-09-03 20:55 | disposition home or self-care (01) | LOC: LBN 20:54 | PROVIDERS: PCP Family Medicine; Visit Provider Family Medicine | DX: N39.0 Urinary tract infection, site not specified (principal) | CPT/HCPCS: 87086 ==

== ENCOUNTER 2023-09-09 17:58 | Outpatient (REF) | payer MEDICARE, BC, SELFPAY | END 2023-09-09 17:59 | disposition home or self-care (01) | LOC: NCHCN 17:58 | PROVIDERS: PCP Family Medicine; Visit Provider Nurse Practitioner Family | DX: R31.9 Hematuria, unspecified (principal) | CPT/HCPCS: 87086 ==

== ENCOUNTER 2023-09-17 07:09 | Outpatient (CLI) | payer MEDICARE, BC, SELFPAY ==
[2023-09-17 07:42] VITALS: BP 134/82; PULSE 77; RESP 20; TEMP 36.9; O2SAT 96
[2023-09-17] MEDS: Midazolam 2 MG/2 ML VIAL IVP (08:25)
[2023-09-17] MEDS: fentaNYL 100 MCG/2 ML VIAL IVP (08:25)
--- NOTE | 2023-09-17 09:04 | DI.RAD_ITS ---
Exam(s) XR PAIN CLINIC LUMBAR SP 2V EXAM: XR PAIN CLINIC LUMBAR SP 2V CLINICAL HISTORY: DX: Lumbar spondylosis. TECHNIQUE: Fluoroscopy was provided for the referring physician for guidance with performing pain cl inic injection procedure. COMPARISON: No exams were available for comparison FINDINGS: Please see procedure note for details. Fluoro time: 61.9 seconds RADIATION DOSE DELIVERED: Imanr=15.54 mGy
[2023-09-17 09:12] VITALS: BP 135/86; PULSE 60; RESP 16; O2SAT 97
[2023-09-17] MEDS: methylPREDNISolone ACETATE 40 MG/ML VIAL IJ (09:18)
[2023-09-17] MEDS: Nerve Block Tray 1 EACH MC (09:18)
[2023-09-17] MEDS: Lactated Ringers 500 ML 80 ML IV (09:19)
[2023-09-17] MEDS: Bupivacaine 0.5% Pres-Free 10 ML VIAL IJ (09:20)
[2023-09-17] MEDS: Lidocaine 2% Pres-Free 5 ML VIAL IJ (09:20)
--- NOTE | 2023-09-17 10:13 | PDOC.PAIN ---
Date of service: 09/17/23 Time of Service: 09:00 Pain Managment Procedure Note Procedure Note Procedure Note: PROCEDURE NOTE BILATERAL LUMBAR RADIOFREQUENCY ABLATION Date of Service: September 17, 2023 Patient:Edinson Manriquez? Provider:? Francesco Gonzalez DO, MPH Edinson Samuels [facility] Bilateral Lumbar Radiofrequency Ablation with the [employer] Machine.? Pre Operative Diagnosis: Lumbosacral Spondylosis without Myelopathy Post Operative Diagnosis: Same Pre procedure pain; VAS= 6/10 Comments: Previous lumbar radiofrequency ablation with >8 months of >50% pain relief. PROCEDURE: Radiofrequency Ablation of medial branches - bilateral L3, L4, L5 and lateral branches of bilateral S1. Edinson?was interviewed and the medical record was reviewed.? There were no medical, pharmacologic, radiographic or other structural contraindications to attempting fluoroscopically guided BILATERAL Lumbar Radiofrequency Ablation.?Risks and expected side effects as well as potential benefit of the procedure were reviewed with Edinson, and the patient's voiced concerns were addressed.? The printed consent form was signed.? Standard time-out procedure was performed. Edinson was brought into the fluoroscopy suite and positioned into the prone position on the fluoroscopy table and allowed to adjust to a position of comfort. A grounding pad was placed on the left abdomen. The sterile field was prepared using chlorhexidine preparation of the skin and sterile draping. Local anesthesia superficial and deep was provided by local infiltration of 2% lidocaine. A 17g 100 mm radiofrequency introducer needle was placed to the planned anatomic targets guided with intermittent fluoroscopy with a perpendicular approach to terminally place at the junction of the superior articular process and the transverse process of the bilateral L4, L5, the base of the sacral ala on the bilateral for the L5 medial branch nerve and the area between base of the sacral ala to the S1 foramen bilaterally. The stylets were removed and radiofrequency probes with a 4mm active tip were then inserted. Needle tip position of the probes was verified in the AP, oblique, and lateral views. At each site, the medial branch nerve was stimulated at 2 Hz to a maximum 1-2 volts determined to finalize safe needle and electrode placement. The patient was awake and responsive during this portion of the procedure. Each target was anesthetized with 1-2 mL of 2 % Lidocaine for anesthesia for lesioning and then each target was lesioned at 80 degrees Celsius for 2 minutes and 30 seconds. Tissue impedances were noted to be between 250 and 500 Ohms. There was no unusual discomfort expressed by Edinson. The needles were withdrawn without difficulty and bandages placed over the needle placement sites, the patient was observed and was without hemodynamic, neurologic, or allergic reactions. Fluoroscopic images were digitally archived. POST PROCEDURE EVALUATION: IMPRESSION: 1. Summary of procedure. Medication given is documented in the MAR. 2. Follow up plan: Edinson to contact [facility] as needed.?This procedure may be repeated if the patient achieves at least 50% improvement in pain/function for at least 6 months. 3. Estimated Blood Loss: <5 mls 4. Fluoroscopy time: Documented in the EMR. Follow up plans and appointments were discussed with the Edinson. Post procedure instruction was given as documented in nursing documentation and having met discharge criteria, Edinson was discharged from the [facility]. COMMENTS: No apparent complications. Post-procedure pain: VAS= 1/10. I personally completed the entire procedure. FRANCESCO GONZALEZ DO, MPH ABPM&R - Subspecialty board certification in Pain Medicine [facility] [facility]
== END 2023-09-17 07:10 | disposition home or self-care (01) ==
LOC: PC 07:09
PROVIDERS: PCP Family Medicine; Visit Provider Preventive Medicine Occupational Medicine
DX: M54.50 Low back pain, unspecified (principal); M47.817 Spondylosis without myelopathy or radiculopathy, lumbosacral region
CPT/HCPCS: 123; 64635; 64636; 72100; 93280; 00123; J0665; J1030; J2250; J3010

== ENCOUNTER → 2023-09-17 10:00 | Outpatient (BNVA) | payer MEDICARE, BC, SELFPAY | PROVIDERS: PCP Family Medicine; Referring Provider Family Medicine; Visit Provider Internal Medicine Cardiovascular Disease | DX: Z95.0 Presence of cardiac pacemaker (principal) | CPT/HCPCS: 93280 ==

== ENCOUNTER 2023-10-09 05:07 | Outpatient (CLI) | payer MEDICARE, BC, SELFPAY ==
[2023-10-10 20:53] LABS: PSA, Ultrasensitive 0.07 ng/mL (<= 6.5)
== END 2023-10-09 05:08 | disposition home or self-care (01) ==
LOC: LOS 05:07
PROVIDERS: PCP Family Medicine; Visit Provider Family Medicine
DX: C61 Malignant neoplasm of prostate (principal)
CPT/HCPCS: 36415; 84153

== ENCOUNTER 2023-10-30 04:52 | Outpatient (CLI) | payer MEDICARE, BC, SELFPAY ==
[2023-10-31 22:20] LABS: PSA, Ultrasensitive 0.11 ng/mL (<= 6.5)
[2023-11-02 18:21] LABS: Testosterone, Total 326 ng/dL (240-950)
== END 2023-10-30 04:53 | disposition home or self-care (01) ==
PROVIDERS: PCP Family Medicine; Visit Provider Nurse Practitioner
DX: C61 Malignant neoplasm of prostate (principal)
CPT/HCPCS: 36415; 84153; 84403

== ENCOUNTER 2023-12-04 05:03 | Outpatient (CLI) | payer MEDICARE, BC, SELFPAY ==
[2023-12-04 13:00] LABS: Abs Immature Grans 0.02 10^3/uL (0.0-0.06); Absolute Basophil Count 0.04 10^3/uL (0.0-0.2); Absolute Eosinophil Count 0.14 10^3/uL (0.0-0.7); Absolute Lymphocyte Count 1.21 10^3/uL (1.2-3.4); Absolute Monocyte Count 0.62 10^3/uL (0.1-0.8); Absolute Neutrophil Count 4.52 10^3/uL (1.2-6.7); Basophils % 0.6 %; Eosinophils % 2.1 %; HCT 39.2 % (40.0-50.0); Immature Grans % 0.3 %; Lymphocytes % 18.5 %; MCHC 33.2 % (32.0-36.0); MCV 90 fL (80-95); MPV 10.7 fL (8.0-11.0); Monocytes % 9.5 %; Platelet Count 217 10^3/uL (130-400); RBC 4.34 10^6/uL (4.36-5.78); RDW 14.6 % (11.8-14.1); RDW-SD 48.3 fL; WBC 6.55 10^3/uL (4.4-10.8)
[2023-12-04 13:56] LABS: ALT 31 U/L (16-63); AST 28 U/L (15-37); Albumin 3.9 g/dL (3.4-5.0); Alkaline Phosphatase 65 U/L (46-116); BUN 25 mg/dL (7-18); Bilirubin, Direct 0.2 mg/dL (0.0-0.2); Bilirubin, Total 0.9 mg/dL (0.2-1.0); CREATININE 1.2 mg/dL (0.70-1.30); Total Protein 7.3 g/dL (6.4-8.2)
[2023-12-08 11:22] LABS: TB Interpretation Negative (Negative); TB1 Ag minus Nil 0.04 IU/ml
== END 2023-12-04 05:04 | disposition home or self-care (01) ==
PROVIDERS: PCP Family Medicine; Visit Provider Dermatology
DX: Z79.899 Other long term (current) drug therapy (principal)
CPT/HCPCS: 36415; 80076; 84520; 82565; 85025; 86480

== ENCOUNTER 2024-05-10 02:07 | Outpatient (CLI) | payer MEDICARE, BC, SELFPAY ==
[2024-05-10 14:25] LABS: Abs Immature Grans 0.02 10^3/uL (0.0-0.06); Absolute Basophil Count 0.05 10^3/uL (0.0-0.2); Absolute Eosinophil Count 0.09 10^3/uL (0.0-0.7); Absolute Lymphocyte Count 1.13 10^3/uL (1.2-3.4); Absolute Monocyte Count 0.65 10^3/uL (0.1-0.8); Absolute Neutrophil Count 4.46 10^3/uL (1.2-6.7); Basophils % 0.8 %; Eosinophils % 1.4 %; HCT 41.5 % (40.0-50.0); HGB 13.8 g/dL (13.5-17.5); Immature Grans % 0.3 %; Lymphocytes % 17.7 %; MCH 30.1 pg (27.0-33.0); MCHC 33.3 % (32.0-36.0); MCV 91 fL (80-95); MPV 10.9 fL (8.0-11.0); Monocytes % 10.2 %; Neutrophils % 69.6 %; Platelet Count 229 10^3/uL (130-400); RBC 4.58 10^6/uL (4.36-5.78); RDW 14.6 % (11.8-14.1); RDW-SD 49.4 fL
[2024-05-10 14:35] LABS: ALT 29 U/L (16-63); AST 29 U/L (15-37); Alkaline Phosphatase 72 U/L (46-116); Anion Gap 10.2 mmol/L (3-11); BUN 24 mg/dL (7-18); Bilirubin, Total 0.73 mg/dL (0.2-1.0); CO2 27.8 mmol/L (21.0-32.0); CREATININE 1.3 mg/dL (0.70-1.30); Calcium 9.6 mg/dL (8.5-10.1); Chloride 105 mmol/L (98-107); Estimated GFR 56.23 (mL/min/1.73m2); Glucose 92 mg/dL (74-106); Potassium 4.6 mmol/L (3.5-5.1); Sodium 143 mmol/L (136-145); Total Protein 7.6 g/dL (6.4-8.2)
[2024-05-12 10:33] LABS: PSA, Ultrasensitive 0.07 ng/mL (<= 6.5)
[2024-05-15 12:27] LABS: Testosterone, Total 333 ng/dL (240-950)
== END 2024-05-10 02:08 | disposition home or self-care (01) ==
LOC: LBO 02:08
PROVIDERS: PCP Family Medicine; Visit Provider Nurse Practitioner
DX: C61 Malignant neoplasm of prostate (principal); Z85.46 Personal history of malignant neoplasm of prostate
CPT/HCPCS: 36415; 80053; 84153; 84403; 85025

== ENCOUNTER 2024-06-02 07:52 | Outpatient (CLI) | payer MEDICARE, BC, SELFPAY ==
[2024-06-02] VITALS (14 sets, daily range): BP systolic 129–147; BP diastolic 90–110; PULSE 72–106; RESP 10–22; TEMP 36.7; O2SAT 91–98
--- NOTE | 2024-06-02 06:00 | DI.RAD_ITS ---
Exam(s) XR PAIN CLINIC LUMBAR SP 2V EXAM: XR PAIN CLINIC LUMBAR SP 2V CLINICAL HISTORY: DX: Lumbar Spondylosis TECHNIQUE: 2D and realtime digital imaging was performed. Radiologist not present. CONTRAST MATERIAL: None. COMPARISON: No exams were available for comparison FINDINGS: Fluoroscopy was provided for pain management therapy. Please refer to procedure report or details. Radiation Exposure Index: Ka,r=16.6 mGy IMPRESSION: As above. RADIATION DOSE DELIVERED:
[2024-06-02] MEDS: Midazolam 2 MG/2 ML VIAL IVP (08:53)
[2024-06-02] MEDS: fentaNYL 100 MCG/2 ML VIAL IVP ×2 (08:53→08:56)
[2024-06-02] MEDS: Normal Saline Flush 10 ML SYR IVP ×2 (08:56→09:02)
[2024-06-02] MEDS: Nerve Block Tray 1 EACH MC (09:27)
[2024-06-02] MEDS: Bupivacaine 0.5% Pres-Free 10 ML VIAL IJ (09:29)
[2024-06-02] MEDS: Lidocaine 2% Pres-Free 5 ML VIAL IJ (09:29)
[2024-06-02] MEDS: methylPREDNISolone ACETATE 40 MG/ML VIAL IJ (09:30)
--- NOTE | 2024-06-02 09:32 | PDOC.PAIN_ITS ---
Date of service: 06/02/24 Time of Service: 09:32 Pain Managment Procedure Note Procedure Note Procedure Note: PROCEDURE NOTE BILATERAL LUMBAR RADIOFREQUENCY ABLATION Date of Service: June 02, 2024 Patient:Edinson Manriquez? Provider:? Francesco Gonzalez DO, MPH Edinson Samuels has [facility] Bilateral Lumbar Radiofrequency Ablation with the [employer] Machine.? Pre Operative Diagnosis: Lumbosacral Spondylosis without Myelopathy ICD-10 M47.816 Post Operative Diagnosis: Same Pre procedure pain; VAS= 7/10 Comments: He last had this procedure on 09/17/23 and had >6 months of >50% pain relief. PROCEDURE: Radiofrequency Ablation of medial branches - bilateral L3, L4, L5 and lateral branches of bilateral S1. Edinson?was interviewed and the medical record was reviewed.? There were no medical, pharmacologic, radiographic or other structural contraindications to attempting fluoroscopically guided BILATERAL Lumbar Radiofrequency Ablation.?Risks and expected side effects as well as potential benefit of the procedure were reviewed with Edinson, and the patient's voiced concerns were addressed.? The printed consent form was signed.? Standard time-out procedure was performed. Edinson was brought into the fluoroscopy suite and positioned into the prone position on the fluoroscopy table and allowed to adjust to a position of comfort. A grounding pad was placed on the left abdomen. The sterile field was prepared using chlorhexidine preparation of the skin and sterile draping. Local anesthesia superficial and deep was provided by local infiltration of 2% lidocaine. A 17g 100 mm radiofrequency introducer needle was placed to the planned anatomic targets guided with intermittent fluoroscopy with a perpendicular approach to terminally place at the junction of the superior articular process and the transverse process of the bilateral L4, L5, the base of the sacral ala on the bilateral for the L5 medial branch nerve and the area between base of the sacral ala to the S1 foramen bilaterally. The stylets were removed and radiofrequency probes with a 4mm active tip were then inserted. Needle tip position of the probes was verified in the AP, oblique, and lateral views. At each site, the medial branch nerve was stimulated at 2 Hz to a maximum 1-2 volts determined to finalize safe needle and electrode placement. The patient was awake and responsive during this portion of the procedure. Each target was anesthetized with 1-2 mL of 2 % Lidocaine for anesthesia for lesioning and then each target was lesioned at 80 degrees Celsius for 2 minutes and 30 seconds. Tissue impedances were noted to be between 250 and 500 Ohms. Next, I injected 1/4 cc of Depomedrol (40 mg/cc) followed by 1 cc of 0.5% Bupivacaine at each segmental sensory nerve. There was no unusual discomfort expressed by Edinson. The needles were withdrawn without difficulty and bandages placed over the needle placement sites, the patient was observed and was without hemodynamic, neurologic, or allergic reactions. Fluoroscopic images were digitally archived. POST PROCEDURE EVALUATION: IMPRESSION: 1. Summary of procedure. Medication given is documented in the MAR. 2. Follow up plan: Edinson to contact [facility] needed.?This procedure may be repeated if the patient achieves at least 50% improvement in pain/function for at least 6 months. 3. Estimated Blood Loss: <5 mls 4. Fluoroscopy time: Documented in the EMR. Follow up plans and appointments were discussed with the Edinson. Post procedure instruction was given as documented in nursing documentation and having met discharge criteria, Edinson was discharged from the [facility]. This advanced procedure uses cooled radiofrequency energy to safely target the sensory nerves responsible for sending pain signals.1 A radiofrequency generator transmits a small current of Radiofrequency energy through an insulated electrode, or probe, placed within tissue. Ionic heating, produced by the friction of charged molecules, thermally deactivates the nerves responsible for sending pain signals to the brain. Radiofrequency energy heats and cools the tissue at the site of pain. Unlike other Radiofrequency procedures, Coolief circulates water through the device while heating nervous tissue to create a larger treatment area, increasing the opportunity to help with pain. This combination targets the pain- transmitting nerves without excessive heating, leading to pain relief. COMMENTS: No apparent complications. Post-procedure pain: VAS= 0/10. I personally completed the entire procedure. FRANCESCO GONZALEZ DO, MPH ABPM&R - Subspecialty board certification in Pain Medicine [facility] [facility]
== END 2024-06-02 07:53 | disposition home or self-care (01) ==
LOC: PC 07:53
PROVIDERS: PCP Family Medicine; Visit Provider Preventive Medicine Occupational Medicine
DX: M54.50 Low back pain, unspecified (principal); M47.816 Spondylosis without myelopathy or radiculopathy, lumbar region
CPT/HCPCS: 64635; 64636; 72100; J0665; J1010; J2250; J3010

== ENCOUNTER → 2024-06-02 10:04 | Outpatient (BNVA) | payer MEDICARE, BC, SELFPAY | PROVIDERS: PCP Family Medicine; Referring Provider Family Medicine; Visit Provider Student in an Organized Health Care Education/Training Program | DX: Z95.810 Presence of automatic (implantable) cardiac defibrillator (principal); I48.20 Chronic atrial fibrillation, unspecified | CPT/HCPCS: 64635; 64636; 72100; 93280; J0665; J1010; J2250; J3010 ==

== ENCOUNTER 2024-09-09 07:04 | Emergency (ER) | payer MEDICARE, BC, SELFPAY ==
[2024-09-09] VITALS (24 sets, daily range): BP systolic 108–153; BP diastolic 46–108; PULSE 82–114; RESP 16; TEMP 36.7–37.1; O2SAT 96–98
--- NOTE | 2024-09-09 07:33 | DI.CT_ITS ---
Exam(s) CT NECK W EXAM: CT NECK W CLINICAL HISTORY: cervical post operative drainage. TECHNIQUE: Imaging Protocol: Axial computed tomography images with coronal and sagittal reformatted images were created and reviewed CONTRAST MATERIAL: Intravenous: Omnipaque 350 Contrast volume:100 ml contrast COMPARISON: No exams were available for comparison FINDINGS: Exam is limited by artifact from dental work which unfortunately creates streak artifact through the area of interest. Parotids: Normal. Submandibular glands: Normal. Thyroid gland: Normal. Lymph nodes: There are scattered lymph nodes seen along the level one to level three all measuring le ss than 8 mm in short axis diameter which are physiologic in nature. Carotids arteries: No significant stenosis or dissection. Vertebral arteries: No significant stenosis or dissection. Soft tissues: Peripherally enhancing collection in the posterior soft tissues at the C3 level, conta ining air. The findings have the appearance of an abscess. It measures approximately 6 cm AP by 5.5 cm cephalo caudad by maximally 10 millimeters transverse. There is apparent extension directly to t he skin. There is also some edema of the between the paraspinal muscles of the posterior neck. The floor the mouth is unremarkable. The tonsils and adenoids are unremarkable. The epiglottis and vocal cords are within normal limits. Lungs: Images through both lung apices are unremarkable. Left-sided pacemaker. Bones: Laminectomy defect at C3. No visible bony destruction. No abnormality is visible within the central canal but there is significant artifact at the area of interest. Degenerative changes throug hout the cervical spine, greatest at C6-7. Visualized portions of the brain and orbits: Unremarkable. Sinuses and mastoids: Small mucous retention cyst at the floor of the left maxillary sinus. IMPRESSION: Soft tissue abscess seen at the postsurgical site at the C3 level extending from the skin to the leve l of the laminectomy. No definite bony destruction or extension into the central canal. Findings called to Dr. Hay of the emergency department RADIATION DOSE DELIVERED: 399.71mGy.cm Total DLP DATA REPOSITORY: All CT scans at this facility are submitted to the National Radiology Data Registry (NRDR) Dose Index Registry (DIR) with the [employer] (A[employer]). RADIATION OPTIMIZATION: All CT scans at this facility use at least one of these dose optimization te chniques: automated exposure control; mA and/or kV adjustment per patient size (includes targeted exa ms where dose is matched to clinical indication); or iterative reconstruction.
--- NOTE | 2024-09-09 07:40 | ED.GENADUL_ITS ---
Discharge Plan Disposition Patient Disposition: Transfer-Acute Inpatient Care Specific Acute Inpt Facility: [facility] Condition: Improving Discharge Details Chief Complaint: RashLesion Clinical Impression: Post-operative infection, Abscess of neck Primary Care Provider: Mahnaz Sims ED Provider: Ranjan Hay Home Meds and New Rx's Prescriptions: No Action pantoprazole 20 mg tablet,delayed release (DR/EC) 20 mg PO DAILY diltiazem HCl [DILT-XR] 120 mg capsule,ext.rel 24h degradable 120 mg PO DAILY cholecalciferol (vitamin D3) 1,000 unit capsule 1,000 unit PO DAILY colestipol [Colestid] 1 gram tablet 1 gm PO BID Qty: 180 3RF Rx Instructions: swallow whole tab w/any liquid;do not crush/chew/cut;administer other meds 1hr before/4hr after taking dose Ilumya 100 mg/mL syringe 100 mg subcut Q12W triamcinolone acetonide 0.1 % cream 1 applic TP BID Qty: 453.6 4RF diphenoxylate-atropine [Lomotil] 2.5-0.025 mg tablet 1 tab PO qid prn Qty: 90 4RF atorvastatin 20 mg tablet 20 mg PO QHS Qty: 90 3RF Eliquis 5 mg tablet 5 mg PO BID Qty: 180 3RF cephalexin 500 mg capsule 500 mg PO .Q6 Discharge Data Discharge Date/Time-TO BE ENTERED AT DEPARTURE: 09/09/24 14:30 HPI General Date/Time Provider Initiated Documentation: 09/09/24 07:14 . HPI Narrative: This is a 79-year-old male with a past medical history of previous stroke, A-fib, pacemaker, chron's disease, who takes tildrakizumab every 12 weekly and apixaban for his A-fib, presents today for evaluation of neck drainage. On August 27 the patient had a posterior cervical laminectomy of C3-C4 as well as a thoracic laminectomy of T9, T10, T10 and T11, done by Dr. Jimenez at [facility]. Patient tolerated this procedure well, however 6 days ago he noticed some pain in his neck, with some associated pressure with a scant amount of drainage. This drainage notably continued, and then on Friday which was 2 days ago he went to see the neurosurgeons (Dr Ordonez) at [facility]. CT scan was ordered at [facility] and showed no significant fluid collection. His oxycodone were refilled for pain control, and he was started on Keflex 500 mg every 6 hours for 10 days. Since then the patient's pain has continued and not improved at all. The drainage is becoming worse and more significant. He states that he is expressing multiple milliliters of fluid every day and this is certainly concerning. He denies fever or chills. He does admit to pressure and achiness in his neck, which does not seem to be well-controlled with his medications. He denies any other complaints at this time. No numbness or tingling, no new weakness in his upper extremities. No headache. No other complaints at this time. Related Data Home Medications ?Medication ?Instructions ?Recorded ?Confirmed cholecalciferol (vitamin D3) 25 1,000 unit PO DAILY 05/13/18 09/09/24 mcg (1,000 unit) capsule colestipol 1 gram tablet (Colestid) 1 gm PO BID #180 tabs 05/13/18 09/09/24 triamcinolone acetonide 0.1 % 1 applic topical BID #453.6 grams 12/31/19 09/09/24 topical cream pantoprazole 20 mg tablet,delayed 20 mg PO DAILY 12/19/21 09/09/24 release diphenoxylate-atropine 2.5 1 tab PO qid prn #90 tab-caps 07/11/23 09/09/24 mg-0.025 mg tablet (Lomotil) tildrakizumab-asmn 100 mg/mL 100 mg subcut Q12W 03/02/24 09/09/24 subcutaneous syringe (Ilumya) atorvastatin 20 mg tablet 20 mg PO QHS #90 tabs 04/29/24 09/09/24 apixaban 5 mg tablet (Eliquis) 5 mg PO BID #180 tabs 08/02/24 09/09/24 diltiazem HCl 120 mg 120 mg PO DAILY Heartrate control 08/20/24 09/09/24 capsule,extended release 24 hr, (in afib) controlled (DILT-XR) cephalexin 500 mg capsule 500 mg PO .Q6 09/09/24 09/09/24 Previous Rx's ?Medication ?Instructions ?Recorded colestipol 1 gram tablet (Colestid) 1 gm PO BID #180 tabs 05/13/18 triamcinolone acetonide 0.1 % 1 applic topical BID #453.6 grams 12/31/19 topical cream diphenoxylate-atropine 2.5 1 tab PO qid prn #90 tab-caps 07/11/23 mg-0.025 mg tablet (Lomotil) atorvastatin 20 mg tablet 20 mg PO QHS #90 tabs 04/29/24 apixaban 5 mg tablet (Eliquis) 5 mg PO BID #180 tabs 08/02/24 Allergies Allergy/AdvReac Type Severity Reaction Status Date / Time Penicillins AdvReac Mild Skin Rash Unverified 09/09/24 07:19 General Stated Complaint: RashLesion ESTEE: 3 Exam Narrative Exam Narrative: 1.Const: Well-nourished, Well-developed, appearing stated age 2.Eyes: PERRL, no conjunctival injection, and symmetrical lids. 3.ENT: Atraumatic external nose and ears. Moist MM. Neck: Symmetric, trachea midline, No thyromegaly. 4.CVS: +S1/S2, Peripheral pulses 2+ and equal in all extremities. Brisk capillary refill in all extremities. 5.RESP: Unlabored respiratory effort. Clear to auscultation bilaterally. No wheezes rales or rhonchi 6.GI: Soft, Nontender/Nondistended, No hepatosplenomegaly. No guarding or rebound. 7.MSK: Normocephalic/Atraumatic, Extremities w/o deformity or ttp No cyanosis or clubbing, Normal movement of all extremities 8.Skin: Warm, Dry. Postoperative incision site in the back of the neck demonstrates an intact and nondehisced posterior neck. There is active purulent drainage coming from the most inferior aspect. Appropriate eschar is present on the superior aspect. No bulging, redness or warmth. 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 Sensation grossly intact, no focal neurologic deficits. 10.Psych: (AAO) x3. Appropriate mood and affect Course Vital Signs Vital signs: Vital Signs Temperature 36.8 C 09/09/24 07:08 Pulse 109 H 09/09/24 07:08 Respiratory Rate 16 09/09/24 07:08 Blood Pressure 134/103 H 09/09/24 07:08 Pulse Oximetry 98 09/09/24 07:08 Temperature 36.8 C 09/09/24 07:08 Pulse 109 H 09/09/24 07:08 Respiratory Rate 16 09/09/24 07:08 Blood Pressure 134/103 H 09/09/24 07:08 Blood Pressure Position Sitting 09/09/24 07:08 Pulse Oximetry 98 09/09/24 07:08 Oxygen Delivery Method Room Air 09/09/24 07:08 Oxygen Flow Rate 0 09/09/24 07:08 Pain Level 7 09/09/24 07:08 Lab/Test Results Lab/Test Results: 09/09/24 07:37 Neck - Left Wound Culture - Pending 09/09/24 07:37 Neck - Left Gram Stain - Pending 09/09/24 07:34 Blood Blood Culture - Pending 09/09/24 07:34 Blood Blood Culture - Pending Medical Decision Making This is a 79-year-old male with a past medical history of previous stroke, A-fib, pacemaker, chron's disease, who takes tildrakizumab every 12 weekly and apixaban for his A-fib, presents today for evaluation of neck drainage. On August 27 the patient had a posterior cervical laminectomy of C3-C4 as well as a thoracic laminectomy of T9, T10, T10 and T11, done by Dr. Jimenez at [facility]. Patient tolerated this procedure well, however 6 days ago he noticed some pain in his neck, with some associated pressure with a scant amount of drainage. This drainage notably continued, and then on Friday which was 2 days ago he went to see the neurosurgeons (Dr Ordonez) at [facility]. CT scan was ordered at [facility] and showed no significant fluid collection. His oxycodone were refilled for pain control, and he was started on Keflex 500 mg every 6 hours for 10 days. Since then the patient's pain has continued and not improved at all. The drainage is becoming worse and more significant. He states that he is expressing multiple milliliters of fluid every day and this is certainly concerning. He denies fever or chills. He does admit to pressure and achiness in his neck, which does not seem to be well-controlled with his medications. He denies any other complaints at this time. No numbness or tingling, no new weakness in his upper extremities. No headache. No other complaints at this time. Exam demonstrates Postoperative incision site in the back of the neck demonstrates an intact and nondehisced posterior neck. There is active purulent drainage coming from the most inferior aspect. Appropriate eschar is present on the superior aspect. No bulging, redness or warmth. Concern and differential include postoperative infection, serous fluid with significant accumulation, normal postoperative drainage, spinous infection. He has no fever or chills to suggest bacteremia at this time. He has no apparent acute neurologic deficits to suggest emergent impingement at this time. We will get CT imaging, get blood cultures, I have swabbed the drainage for further diagnostic testing. We will monitor closely and reassess. We will start vancomycin and Zosyn out of an abundance of care. 2:[address] scan shows evidence of an abscess at the postsurgical site at C3, patient does have improvement of his white count CRP and ESR compared to prior labs at [facility] few days ago. Discussed the case with neurosurgery at [facility] , they recommend MRI. We checked with our MRI here and we are not able to perform MRI on any patients with pacemakers. We contacted [facility], and they will accept him for transfer to the ED for MRI. Discussed the case with Dr. Ascencio from [facility] ED. He accepts the patient for transfer. I have extensively reviewed the treatment plan with the patient. I have addressed all patient concerns at this time. I have also discussed the plan with the admitting physician and they agree with the current assessment and plan and have agreed to assume responsibility for the patient. All parties demonstrate verbal understanding and agreement with our assessment and plan at this time. The documentation in this chart was dictated using [email or web address] dictation software. Please excuse any dictation errors. At time of transfer the patient was reassessed and continued to demonstrate No signs of acute respiratory distress requiring intubation, hemodynamic instability requiring pressor support, or rapidly declining mental status. FINDINGS: Exam is limited by artifact from dental work which unfortunately creates streak artifact through the area of interest. Parotids: Normal. Submandibular glands: Normal. Thyroid gland: Normal. Lymph nodes: There are scattered lymph nodes seen along the level one to level three all measuring less than 8 mm in short axis diameter which are physiologic in nature. Carotids arteries: No significant stenosis or dissection. Vertebral arteries: No significant stenosis or dissection. Soft tissues: Peripherally enhancing collection in the posterior soft tissues at the C3 level, containing air. The findings have the appearance of an abscess. It measures approximately 6 cm AP by 5.5 cm cephalo caudad by maximally 10 millimeters transverse. There is apparent extension directly to the skin. There is also some edema of the between the paraspinal muscles of the posterior neck. The floor the mouth is unremarkable. The tonsils and adenoids are unremarkable. The epiglottis and vocal cords are within normal limits. Lungs: Images through both lung apices are unremarkable. Left-sided pacemaker. Bones: Laminectomy defect at C3. No visible bony destruction. No abnormality is visible within the central canal but there is significant artifact at the area of interest. Degenerative changes throughout the cervical spine, greatest at C6-7. Visualized portions of the brain and orbits: Unremarkable. Sinuses and mastoids: Small mucous retention cyst at the floor of the left maxillary sinus. IMPRESSION: Soft tissue abscess seen at the postsurgical site at the C3 level extending from the skin to the level of the laminectomy. No definite bony destruction or extension into the central canal. Findings called to Dr. Hay of the emergency department Quality:SDOH Health Related Social Needs: No Data to Display PFSH All Active Problems (Updated 09/09/24 @ 18:47 by Ranjan Hay, ) Abscess of neck (Acute) Post-operative infection (Acute) Cervical radiculitis (Acute) Thoracic spinal stenosis (Acute) Tubular adenoma of colon (Acute 03/2024) Psoriasis (Chronic) scalp Lumbar radiculitis (Acute) Hematuria (Acute) Hip pain (Acute) Rotator cuff arthropathy of right shoulder (Acute) Nocturia (Acute) Dr. Perez recommended nightly ibuprofen 200mg daily. 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 Ablation x 4 Medical History (Updated 09/09/24 @ 18:47 by Ranjan Hay DO) Sick sinus syndrome Pacemaker Implant date 10/03/20 Followed by [facility] Cardiology Dr. Esteban Gore. [employer] acc[employer] MRI [id number] History of CVA (cerebrovascular accident) without residual deficits Ileocolic anastomotic leak (11/19/16) Diverticulosis of colon without diverticulitis (08/24/13) Crohn's disease resection distal small bowel and prox colon age 35 needs colonoscopy at 5 year intervals Carcinoma of prostate (07/30/13) Dong 10 2007. Radiation and lupron; on PSA monitoring q 4 months - high sens PSA. Surgical History (Updated 08/20/24 @ 14:56 by Mahnaz Sims MD) Status post replacement of left shoulder joint History of bilateral cataract extraction (11/19/16) History of bowel resection History of neck surgery (1994) was very helpful for his symptoms -- C4-5 Status post inguinal hernia repair Status post shoulder surgery Family History (Updated 03/31/24 @ 14:30 by Mahnaz Sims MD) Mother , 81 Heart disease CHF Father , 69 Diabetes Stroke Alcohol abuse Brother Age: 81 Scoliosis Maternal Grandfather Heart disease Paternal Grandfather No problems noted. Maternal Grandmother Stroke Paternal Grandmother No problems noted. Daughter Depression Son Heart disease Social History (Updated 04/01/24 @ 09:21 by Pascale Omer) Smoking/Tobacco Use Status: Never Tobacco: How many years used: 3 Second Hand Exposure: Yes Smoking risk assessment performed?: Yes Alcohol Intake: current Alcohol Intake frequency: a few times a week Alcohol type: wine and hard liquor Drug use: Never Substance use type: does not use Counseling given: No Adopted: No Caregiver/Support person: Yes Details: Household members: spouse Housing: house Number of Children: 2 number of grandchildren: 2 Communication Needs: Hard of Hearing and Corrective Lenses Education Level: master's degree Do you need help understanding health information?: Rarely 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, [employer], [employer]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 Pets and animals: Yes Pets and animals: dog(s) and bird(s) Sexually active: No Do you think of yourself as: straight/heterosexual Current gender identity: male What is your relationship status?: How often do you talk on the phone with friends or family?: twice per week How often do you get together with friends or relatives?: three or more times per week How often do you attend adventist or latter-day services?: 1-3 times per year Do you belong to any clubs or organized social groups?: yes Panel score (0-1 are the most socially isolated patients): 3 What type of physical activity do you participate in: walking, bicycling and other Details: spining Duration: 30-45 minutes/day Frequency: 3-4 times per week Meaghan/Temple: No preference Special meaghan needs: No Seatbelt use: always Helmet use: Yes Helmet use: always Drive intox or ride w/intox flatbed truck driver: No Do you feel safe at home: Yes Do you feel safe in your relationship?: Yes PAWSS Have you Been Recently Intoxicated or Drunk Within the Last 30 days?: No Have you Ever Experienced Previous Episodes of Alcohol Withdrawal?: No Have you ever Experienced Withdrawal Seizures?: No Have you ever Experienced Delirium Tremens(DT)s?: No Have you ever undergone Alcohol Rehabilitation Treatment (i.e, inpt ot outpatient treatment programs)?: No Have you ever Experienced Blackouts?: No Have you ever Combined Alcohol with other Downers within the last 90 days?: No Have you ever Combined Alcohol with any other Substance of Abuse during the last 90 days?: No Positive Blood Alcohol level on Presentation? [PCS.BAL]: No Evidence of Increased Autonomic Activity (i.e. HR>120, tremor, sweating, agitation, nausea)?: No Result: 0
[2024-09-09] MEDS: ACETAMINOPHEN 1,000 MG/100 ML BAG 400 MG IVPB (07:57)
[2024-09-09 07:58] LABS: Lactate 1.9 mmol/L (<or=2.0)
[2024-09-09 07:59] LABS: Abs Immature Grans 0.06 10^3/uL (0.0-0.06); Absolute Basophil Count 0.05 10^3/uL (0.0-0.2); Absolute Eosinophil Count 0.06 10^3/uL (0.0-0.7); Absolute Lymphocyte Count 0.61 10^3/uL (1.2-3.4); Absolute Monocyte Count 1.04 10^3/uL (0.1-0.8); Absolute Neutrophil Count 11.12 10^3/uL (1.2-6.7); Basophils % 0.4 %; Eosinophils % 0.5 %; HCT 37.2 % (40.0-50.0); Immature Grans % 0.5 %; Lymphocytes % 4.7 %; MCH 30.6 pg (27.0-33.0); MCHC 34.9 % (32.0-36.0); MCV 88 fL (80-95); MPV 10.4 fL (8.0-11.0); Neutrophils % 85.9 %; Platelet Count 305 10^3/uL (130-400); RBC 4.25 10^6/uL (4.36-5.78); RDW 14.2 % (11.8-14.1); RDW-SD 45.5 fL; WBC 12.94 10^3/uL (4.4-10.8)
[2024-09-09 08:02] LABS: ESR 21 mm/hr (0-20)
[2024-09-09 08:13] LABS: C-Reactive Protein 8.76 mg/dL (<or=0.5); INR 1.1 (0.9-1.1); PTT Activated 27.5 sec (20.6-30.2)
[2024-09-09 08:17] LABS: ALT 64 U/L (16-63); AST 47 U/L (15-37); Albumin 3.2 g/dL (3.4-5.0); Alkaline Phosphatase 296 U/L (46-116); Anion Gap 12.2 mmol/L (3-11); BUN 13 mg/dL (7-18); Bilirubin, Total 1.08 mg/dL (0.2-1.0); CO2 27.8 mmol/L (21.0-32.0); CREATININE 1.1 mg/dL (0.70-1.30); Calcium 9.4 mg/dL (8.5-10.1); Chloride 95 mmol/L (98-107); Estimated GFR 68.29 (mL/min/1.73m2); Glucose 101 mg/dL (74-106); Potassium 3.6 mmol/L (3.5-5.1); Sodium 135 mmol/L (136-145); Total Protein 7.9 g/dL (6.4-8.2)
[2024-09-09 08:32] LABS: Procalcitonin 0.13 ng/mL
[2024-09-09] MEDS: Normal Saline - Diluent 50 ML VIAL IJ (09:39)
[2024-09-09] MEDS: Omnipaque 350 MG/ML 100 ML BTL IJ (09:40)
[2024-09-09] MEDS: AZTREONAM 2,000 MG in Normal Saline 100 ML 200 MG IVPB (10:09)
[2024-09-09] MEDS: VANCOMYCIN/WATER (PEG) 1.75 GM/350 ML BAG IV (10:42)
== END 2024-09-09 14:30 | disposition short-term general hospital (02) ==
LOC: ER 07:24
PROVIDERS: Emergency Provider Student in an Organized Health Care Education/Training Program; PCP Family Medicine
DX: T81.40XA Infection following a procedure, unspecified, initial encounter (principal); L02.11 Cutaneous abscess of neck; Z86.79 Personal history of other diseases of the circulatory system; Z79.01 Long term (current) use of anticoagulants
CPT/HCPCS: 36415; 70491; 80053; 84145; 85652; 87040; 87077; 96365; 96366; 96367; 96375; 99285; 83605; 85025; 85610; 85730; 86140; 87070; 87186; 87205; J0131; J0457; J3372; J3490

== ENCOUNTER 2024-09-20 16:38 | Outpatient (REF) | payer MEDICARE, BC, SELFPAY ==
[2024-09-20 18:10] LABS: Abs Immature Grans 0.03 10^3/uL (0.0-0.06); Absolute Basophil Count 0.08 10^3/uL (0.0-0.2); Absolute Eosinophil Count 0.22 10^3/uL (0.0-0.7); Absolute Lymphocyte Count 0.97 10^3/uL (1.2-3.4); Absolute Monocyte Count 0.82 10^3/uL (0.1-0.8); Absolute Neutrophil Count 6.53 10^3/uL (1.2-6.7); Basophils % 0.9 %; Eosinophils % 2.5 %; HCT 36.4 % (40.0-50.0); HGB 11.7 g/dL (13.5-17.5); Immature Grans % 0.3 %; Lymphocytes % 11.2 %; MCH 29.7 pg (27.0-33.0); MCHC 32.1 % (32.0-36.0); MCV 92 fL (80-95); MPV 10.3 fL (8.0-11.0); Monocytes % 9.5 %; Neutrophils % 75.6 %; Platelet Count 376 10^3/uL (130-400); RBC 3.94 10^6/uL (4.36-5.78); RDW 15.3 % (11.8-14.1); RDW-SD 52.8 fL; WBC 8.65 10^3/uL (4.4-10.8)
[2024-09-20 18:19] LABS: ALT 43 U/L (16-63); AST 24 U/L (15-37); Albumin 3.4 g/dL (3.4-5.0); Alkaline Phosphatase 132 U/L (46-116); Anion Gap 9.1 mmol/L (3-11); BUN 24 mg/dL (7-18); Bilirubin, Total 0.3 mg/dL (0.2-1.0); C-Reactive Protein 0.54 mg/dL (<or=0.5); CO2 26.9 mmol/L (21.0-32.0); Calcium 8.9 mg/dL (8.5-10.1); Chloride 104 mmol/L (98-107); Estimated GFR 76.56 (mL/min/1.73m2); Glucose 85 mg/dL (74-106); Potassium 4.6 mmol/L (3.5-5.1); Sodium 140 mmol/L (136-145); Total Protein 7.1 g/dL (6.4-8.2)
== END 2024-09-20 16:39 | disposition home or self-care (01) ==
LOC: LBN 16:38
PROVIDERS: PCP Internal Medicine Infectious Disease; Visit Provider Internal Medicine Infectious Disease
DX: Z79.2 Long term (current) use of antibiotics (principal)
CPT/HCPCS: 80053; 85025; 86140

== ENCOUNTER 2024-09-27 18:14 | Outpatient (REF) | payer MEDICARE, BC, SELFPAY ==
[2024-09-27 18:05] LABS: Abs Immature Grans 0.03 10^3/uL (0.0-0.06); Absolute Basophil Count 0.07 10^3/uL (0.0-0.2); Absolute Eosinophil Count 0.16 10^3/uL (0.0-0.7); Absolute Lymphocyte Count 1.16 10^3/uL (1.2-3.4); Absolute Monocyte Count 0.61 10^3/uL (0.1-0.8); Absolute Neutrophil Count 5.73 10^3/uL (1.2-6.7); Basophils % 0.9 %; Eosinophils % 2.1 %; HCT 38.2 % (40.0-50.0); HGB 12.7 g/dL (13.5-17.5); Immature Grans % 0.4 %; Lymphocytes % 14.9 %; MCH 29.7 pg (27.0-33.0); MCHC 33.2 % (32.0-36.0); MCV 90 fL (80-95); MPV 11.3 fL (8.0-11.0); Monocytes % 7.9 %; Neutrophils % 73.8 %; Platelet Count 268 10^3/uL (130-400); RBC 4.27 10^6/uL (4.36-5.78); RDW 14.9 % (11.8-14.1); RDW-SD 48.9 fL; WBC 7.76 10^3/uL (4.4-10.8)
[2024-09-27 18:16] LABS: ALT 23 U/L (16-63); AST 25 U/L (15-37); Albumin 3.7 g/dL (3.4-5.0); Alkaline Phosphatase 115 U/L (46-116); Anion Gap 9.3 mmol/L (3-11); BUN 23 mg/dL (7-18); Bilirubin, Total 0.6 mg/dL (0.2-1.0); C-Reactive Protein < 0.50 mg/dL (<or=0.5); CO2 26.7 mmol/L (21.0-32.0); CREATININE 1.2 mg/dL (0.70-1.30); Calcium 9.2 mg/dL (8.5-10.1); Chloride 103 mmol/L (98-107); Estimated GFR 61.52 (mL/min/1.73m2); Glucose 71 mg/dL (74-106); Potassium 4.3 mmol/L (3.5-5.1); Sodium 139 mmol/L (136-145); Total Protein 7.6 g/dL (6.4-8.2)
== END 2024-09-27 18:15 | disposition home or self-care (01) ==
LOC: LBN 18:14
PROVIDERS: PCP Family Medicine; Visit Provider Internal Medicine Infectious Disease
DX: B95.61 Methicillin susceptible Staphylococcus aureus infection as the cause of diseases classified elsewhere (principal)
CPT/HCPCS: 80053; 85025; 86140

== ENCOUNTER 2024-10-04 14:10 | Outpatient (REF) | payer MEDICARE, BC, SELFPAY ==
[2024-10-04 14:46] LABS: Absolute Basophil Count 0.02 10^3/uL (0.0-0.2); Absolute Eosinophil Count 0.04 10^3/uL (0.0-0.7); Absolute Lymphocyte Count 0.53 10^3/uL (1.2-3.4); Absolute Monocyte Count 0.03 10^3/uL (0.1-0.8); Basophils % 3.2 %; Eosinophils % 6.3 %; HCT 37.7 % (40.0-50.0); HGB 12.3 g/dL (13.5-17.5); Lymphocytes % 84.1 %; MCH 29.2 pg (27.0-33.0); MCHC 32.6 % (32.0-36.0); MCV 90 fL (80-95); MPV 10.7 fL (8.0-11.0); Monocytes % 4.8 %; Neutrophils % 1.6 %; Platelet Count 189 10^3/uL (130-400); RBC 4.21 10^6/uL (4.36-5.78); RDW 14.7 % (11.8-14.1)
[2024-10-04 14:59] LABS: ALT 26 U/L (16-63); AST 25 U/L (15-37); Albumin 3.5 g/dL (3.4-5.0); Alkaline Phosphatase 108 U/L (46-116); Anion Gap 9.3 mmol/L (3-11); BUN 18 mg/dL (7-18); Bilirubin, Total 0.6 mg/dL (0.2-1.0); CO2 25.7 mmol/L (21.0-32.0); CREATININE 1.1 mg/dL (0.70-1.30); Calcium 8.9 mg/dL (8.5-10.1); Chloride 102 mmol/L (98-107); Estimated GFR 68.29 (mL/min/1.73m2); Glucose 98 mg/dL (74-106); Potassium 4.6 mmol/L (3.5-5.1); Sodium 137 mmol/L (136-145); Total Protein 7.2 g/dL (6.4-8.2)
[2024-10-04 15:00] LABS: C-Reactive Protein < 0.50 mg/dL (<or=0.5)
[2024-10-04 15:03] LABS: Diff Comment Agrees w/ Instrument
[2024-10-04 15:04] LABS: RBC Morphology Normal
[2024-10-04 15:38] LABS: WBC 0.63 10^3/uL (4.4-10.8)
[2024-10-04 22:18] LABS: Absolute Neutrophil Count 0.01 10^3/uL (1.2-6.7)
== END 2024-10-04 14:11 | disposition home or self-care (01) ==
LOC: LBN 14:10
PROVIDERS: PCP Family Medicine; Visit Provider Internal Medicine Infectious Disease
DX: Z79.2 Long term (current) use of antibiotics (principal)
CPT/HCPCS: 80053; 85025; 86140

== ENCOUNTER 2024-10-04 20:53 | Inpatient (IN) | payer MEDICARE, BC, SELFPAY ==
[2024-10-04] VITALS (33 sets, daily range): BP systolic 121–171; BP diastolic 84–89; PULSE 86–109; RESP 11–31; TEMP 39.4; O2SAT 91–96
--- NOTE | 2024-10-04 21:00 | DI.CT_ITS ---
Exam(s) CT NECK W EXAM: CT NECK W INDICATION: recent abscess, recurrent fever. COMPARISON: CT CT NECK W from 09/09/2024 TECHNIQUE: Intravenous contrast 100 mL Omnipaque 350 FINDINGS: VISUALIZED PARANASAL SINUSES: There is some mild mucosal thickening in the maxillary sinuses and a po st inflammatory retention cyst is again noted in the left maxillary sinus. No associated fluid level s nor bone dehiscence. The other paranasal sinuses are clear, as are the mastoid air cells. NASOPHARYNX: Unremarkable ORODENTAL: Unremarkable. OROPHARYNX: Unremarkable. No masses evident. HYPOPHARYNX: Unremarkable. Valleculae and epiglottis and aryepiglottic folds appear normal. VOCAL CORDS: Unremarkable. No masses evident. Subglottic airway appears unremarkable. THYROID GLAND: Unremarkable. Normal size and no obvious nodules. SALIVARY GLANDS: Unremarkable. No significant findings in the parotid and submandibular glands. LYMPH NODES: There is no adenopathy evident in the neck and supraclavicular regions. OTHER: The previously described posterior soft tissue abscess at the cervical operative site seen on the prior CT scan of 09/09/2024 has mostly resolved. There is a small area of hypodensity in this re gion associated with the posterior aspect of the spinous process of C4, measuring approximately 8 x 7 mm. There appears to be some mild surrounding enhancement. No evidence of regional osteomyelitis i n the cervical vertebrae. No prevertebral soft tissue swelling. VISUALIZED LUNG APICES: No significant findings. IMPRESSION: 1. Compared to the prior CT scan of 09/09/2024 has been almost complete resolution of the posterior soft tissue neck abscess. There is a small remaining area of hypodensity measuring approximately 8 x 7 mm with mild surrounding enhancement in this region adjacent to the posterior aspect of the spinou s process of C4. This may represent small amount of remaining abscess or recurrent abscess at this l evel. First read by [facility] Final report called by myself to ER physician 10/05/2024 at 8:30 a.m. RADIATION DOSE DELIVERED: 378.97mGy.cm Total DLP DATA REPOSITORY: All CT scans at this facility are submitted to the National Radiology Data Registry (NRDR) Dose Index Registry (DIR) with the [employer] (ACR). RADIATION OPTIMIZATION: All CT scans at this facility use at least one of these dose optimization te chniques: automated exposure control; mA and/or kV adjustment per patient size (includes targeted exa ms where dose is matched to clinical indication); or iterative reconstruction.
--- NOTE | 2024-10-04 21:10 | W.ED.GENAD ---
Discharge Plan Disposition Patient Disposition: Admit to [facility] Condition: Stable Discharge Details Clinical Impression: Neutropenic fever Primary Care Provider: Mahnaz Sims ED Provider: Jarod Mohr Home Meds and New Rx's Prescriptions: No Action pantoprazole 20 mg tablet,delayed release (DR/EC) 20 mg PO DAILY cefazolin 2 gram recon soln 2 g IV Q8H Rx Instructions: Anticipated stop date 10/11/24 tizanidine [Zanaflex] 2 mg capsule 2 mg PO Q8H PRN colestipol [Colestid] 1 gram tablet 1 gm PO BID Qty: 180 3RF Rx Instructions: swallow whole tab w/any liquid;do not crush/chew/cut;administer other meds 1hr before/4hr after taking dose cholecalciferol (vitamin D3) 25 mcg (1,000 unit) capsule 2,000 unit PO DAILY Ilumya 100 mg/mL syringe 100 mg subcut Q12W triamcinolone acetonide 0.1 % cream 1 applic TP BID Qty: 453.6 4RF diphenoxylate-atropine [Lomotil] 2.5-0.025 mg tablet 1 tab PO qid prn Qty: 90 4RF atorvastatin 20 mg tablet 20 mg PO QHS Qty: 90 3RF Eliquis 5 mg tablet 5 mg PO BID Qty: 180 3RF diltiazem HCl 120 mg capsule,extended release 24hr 120 mg PO DAILY Patient Comments: TAKE 1 CAPSULE DAILY HPI General Mode of arrival: ambulatory. Date/Time Provider Initiated Documentation: 10/04/24 20:55. Limitations to Documentation: no limitations. Information obtained by: patient. History of Present Illness 79 year old M presents to the emergency department with the chief complaint of fever, described as moderate, Patient started experiencing this hour(s) (6) and it has been constant. No relieving factors improve symptom(s), No exacerbating factors reported . Patient notes no other symptoms.. Patient did receive the following treatments prior to arrival, none Related Data Home Medications ?Medication ?Instructions ?Recorded ?Confirmed colestipol 1 gram tablet (Colestid) 1 gm PO BID #180 tabs 05/13/18 10/04/24 triamcinolone acetonide 0.1 % 1 applic topical BID #453.6 grams 12/31/19 09/24/24 topical cream pantoprazole 20 mg tablet,delayed 20 mg PO DAILY 12/19/21 10/04/24 release diphenoxylate-atropine 2.5 1 tab PO qid prn #90 tab-caps 07/11/23 10/04/24 mg-0.025 mg tablet (Lomotil) tildrakizumab-asmn 100 mg/mL 100 mg subcut Q12W 03/02/24 10/04/24 subcutaneous syringe (Ilumya) atorvastatin 20 mg tablet 20 mg PO QHS #90 tabs 04/29/24 10/04/24 apixaban 5 mg tablet (Eliquis) 5 mg PO BID #180 tabs 08/02/24 10/04/24 cefazolin 2 gram intravenous 2 g IV Q8H 09/15/24 10/04/24 solution cholecalciferol (vitamin D3) 25 2,000 unit PO DAILY 09/24/24 10/04/24 mcg (1,000 unit) capsule tizanidine 2 mg capsule (Zanaflex) 2 mg PO Q8H PRN 09/24/24 09/24/24 diltiazem HCl 120 mg 120 mg PO DAILY 10/04/24 10/04/24 capsule,extended release 24 hr Previous Rx's ?Medication ?Instructions ?Recorded colestipol 1 gram tablet (Colestid) 1 gm PO BID #180 tabs 05/13/18 triamcinolone acetonide 0.1 % 1 applic topical BID #453.6 grams 12/31/19 topical cream diphenoxylate-atropine 2.5 1 tab PO qid prn #90 tab-caps 07/11/23 mg-0.025 mg tablet (Lomotil) atorvastatin 20 mg tablet 20 mg PO QHS #90 tabs 04/29/24 apixaban 5 mg tablet (Eliquis) 5 mg PO BID #180 tabs 08/02/24 Allergies Allergy/AdvReac Type Severity Reaction Status Date / Time No Known Drug Allergies AdvReac Unknown Unknown Verified 10/04/24 22:50 General Stated Complaint: Fever ESTEE: 3 Review of Systems All systems reviewed & are unremarkable except as noted in HPI and below Constitutional Constitutional: Reports chills, Reports fever(s) and Reports weakness Cardiovascular Cardiovascular: Denies chest pain and Denies dyspnea Respiratory Respiratory: Denies cough and Denies dyspnea Gastrointestinal Gastrointestinal: Denies abdominal pain, Denies nausea and Denies vomiting Musculoskeletal Musculoskeletal: Denies joint swelling Neurologic Neurologic: Reports weakness Exam Const General: no acute distress Orientation: alert [facility] Head: normal to inspection Ears: external ears normal General nose exam: external nose normal Mouth: moist mucous membranes Eyes General: appearance normal, both eyes and all related structures Neck Neck: normal visual inspection and no meningeal signs Resp Effort & Inspection: normal respiratory effort and able to speak in complete sentences Auscultation: clear to auscultation bilaterally Cardio Rate: regular rate Skin General skin exam: no rashes or lesions noted Neuro General: patient alert and patient oriented x3 Extrem General: normal to inspection Psych Mental Status: mental status grossly normal Course Vital Signs Vital signs: Vital Signs Temperature 39.4 C H 10/04/24 20:57 Pulse 107 H 10/04/24 20:57 Respiratory Rate 20 10/04/24 20:57 Blood Pressure 171/89 H 10/04/24 20:57 Pulse Oximetry 94 10/04/24 20:57 Temperature 39.4 C H 10/04/24 21:02 Pulse 107 H 10/04/24 21:02 Respiratory Rate 20 10/04/24 21:02 Blood Pressure 171/89 H 10/04/24 21:02 Blood Pressure Position Sitting 10/04/24 21:02 Pulse Oximetry 94 10/04/24 21:02 Oxygen Delivery Method Room Air 10/04/24 21:02 Oxygen Flow Rate 0 10/04/24 21:02 Lab/Test Results Lab/Test Results: 10/04/24 20:56 Blood Blood Culture - Pending 10/04/24 20:56 Blood Blood Culture - Pending Medical Decision Making 79-year-old male with a past medical history of previous stroke, A-fib, pacemaker, chron's disease, who takes tildrakizumab every 12 weeks who had a cervical laminectomy done in August which was complicated by a postop abscess which required transfer to [facility] at the beginning of this month for drainage. He is on cefazolin 3 times a day IV and today he had blood work which showed a precipitous drop in his white count to less than 1 and this afternoon he had the onset of fever and general malaise so infectious disease referred him here. Denies any cough, abdominal pain. He has no pain in his right arm PICC line has no signs of infection there. He is a midline posterior cervical incision appears healed with mild tenderness, he has full range of motion of his neck without meningismus. I suspect recurrent neck infection, will obtain inflammatory markers, procalcitonin and lactate and administer bank and Zosyn as he is febrile tachycardic here. Will proceed with CT of his neck as well. CT read shows improvement and resolution of abscess that was seen on prior studies. Patient is stable. Will reach out to [facility] about possible transfer. If patient requires an MRI inability to that here due to him having a pacemaker. Spoke with neurosurgery HALEIGH Sanchez who reviewed case and films and did not feel patient needed transfer for MRI given improvement in CT and no neurological symptoms, [place] [facility] [place] with [place]ist about admission here for iv antibiotics and obs. CXR read as left lower lobe infiltrate vs atelectasis, no respiratory symptoms so doubt pneumonia Spoke with ID fellow Dr. Maurer who reviewed case and is going to discuss with her attending. Patient will be signed out to oncoming provider pending call back but suspect patient will be admitted here tonight. Medical Records Medical records reviewed: Yes I reviewed the patient's medical records. Quality:SDOH Health Related Social Needs: No Data to Display PFSH All Active Problems (Updated 10/04/24 @ 23:14 by Jarod Mohr MD) Neutropenic fever (Acute) Postoperative abscess (Acute 08/2024) Post Laminectomy, draining abscess Tubular adenoma of colon (Acute 03/2024) Psoriasis (Chronic) scalp Lumbar radiculitis (Acute) Hematuria (Acute) Hip pain (Acute) Rotator cuff arthropathy of right shoulder (Acute) Nocturia (Acute) Dr. Perez recommended nightly ibuprofen 200mg daily. 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 surgical repair [facility] [place] Chronic gastritis (Chronic 11/13/17) [facility] [place]; WITH ULCERS AND EROSIONS Atrial fibrillation (Chronic 07/30/13) 2005. Ablation x 4 Medical History (Updated 10/04/24 @ 23:14 by Jarod Mohr MD) Cervical radiculitis Thoracic spinal stenosis Sick sinus syndrome Pacemaker Implant date 10/03/20 Followed by [facility] [place] Dr. Esteban Gore. [employer] accolade MRI [id number] History of CVA (cerebrovascular accident) without residual deficits Ileocolic anastomotic leak (11/19/16) Diverticulosis of colon without diverticulitis (08/24/13) Crohn's disease resection distal small bowel and prox colon age 35 needs colonoscopy at 5 year intervals Carcinoma of prostate (07/30/13) [place] 10 2007. Radiation and lupron; on PSA monitoring q 4 months - high sens PSA. Surgical History (System 09/20/24 @ 16:10 by Suzan Neville) Status post replacement of left shoulder joint History of bilateral cataract extraction (11/19/16) History of bowel resection History of neck surgery (1994) was very helpful for his symptoms -- C4-5 Status post inguinal hernia repair Status post shoulder surgery Family History (System 09/20/24 @ 16:10 by Suzan Neville) Mother , 81 Heart disease CHF Father , 69 Diabetes Stroke Alcohol abuse Brother Age: 81 Scoliosis Maternal Grandfather Heart disease Paternal Grandfather No problems noted. Maternal Grandmother Stroke Paternal Grandmother No problems noted. Daughter Depression Son Heart disease Social History (System 09/20/24 @ 16:10 by Suzan Neville) Smoking/Tobacco Use Status: Never Tobacco: How many years used: 3 Second Hand Exposure: Yes Smoking risk assessment performed?: Yes Alcohol Intake: current Alcohol Intake frequency: a few times a week Alcohol type: wine and hard liquor Drug use: Never Substance use type: does not use Counseling given: No Adopted: No Caregiver/Support person: Yes Details: Household members: spouse Housing: house Number of Children: 2 number of grandchildren: 2 Communication Needs: Hard of Hearing and Corrective Lenses Education Level: master's degree Do you need help understanding health information?: Rarely 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, [employer], [employer]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 Pets and animals: Yes Pets and animals: dog(s) and bird(s) Sexually active: No Do you think of yourself as: straight/heterosexual Current gender identity: male What is your relationship status?: How often do you talk on the phone with friends or family?: twice per week How often do you get together with friends or relatives?: three or more times per week How often do you attend scientology or sikhism services?: 1-3 times per year Do you belong to any clubs or organized social groups?: yes Panel score (0-1 are the most socially isolated patients): 3 What type of physical activity do you participate in: walking, bicycling and other Details: spining Duration: 30-45 minutes/day Frequency: 3-4 times per week Meaghan/Amish: No preference Special meaghan needs: No Seatbelt use: always Helmet use: Yes Helmet use: always Drive intox or ride w/intox pick up and delivery driver: No Do you feel safe at home: Yes Do you feel safe in your relationship?: Yes PAWSS Have you Been Recently Intoxicated or Drunk Within the Last 30 days?: No Have you Ever Experienced Previous Episodes of Alcohol Withdrawal?: No Have you ever Experienced Withdrawal Seizures?: No Have you ever Experienced Delirium Tremens(DT)s?: No Have you ever undergone Alcohol Rehabilitation Treatment (i.e, inpt ot outpatient treatment programs)?: No Have you ever Experienced Blackouts?: No Have you ever Combined Alcohol with other Downers within the last 90 days?: No Have you ever Combined Alcohol with any other Substance of Abuse during the last 90 days?: No Positive Blood Alcohol level on Presentation? [PCS.BAL]: No Evidence of Increased Autonomic Activity (i.e. HR>120, tremor, sweating, agitation, nausea)?: No Result: 0
[2024-10-04] MEDS: Omnipaque 350 MG/ML 100 ML BTL IJ (21:17)
[2024-10-04] MEDS: Normal Saline - Diluent 50 ML VIAL IJ (21:30)
[2024-10-04] MEDS: Normal Saline Flush 10 ML SYR IVP (21:30)
[2024-10-04 21:34] LABS: Lactate 1.2 mmol/L (<or=2.0)
[2024-10-04 21:36] LABS: Absolute Basophil Count 0.01 10^3/uL (0.0-0.2); HCT 39.8 % (40.0-50.0); HGB 13.1 g/dL (13.5-17.5); MCH 29.2 pg (27.0-33.0); MCHC 32.9 % (32.0-36.0); MCV 89 fL (80-95); MPV 10.3 fL (8.0-11.0); Platelet Count 192 10^3/uL (130-400); RBC 4.49 10^6/uL (4.36-5.78); RDW 14.5 % (11.8-14.1)
[2024-10-04 21:39] LABS: ESR 16 mm/hr (0-20)
[2024-10-04 21:48] LABS: INR 1.2 (0.9-1.1); PTT Activated 27.9 sec (20.6-30.2); Prothrombin Time 11.6 sec (9.1-11.1)
[2024-10-04 21:51] LABS: C-Reactive Protein < 0.50 mg/dL (<or=0.5)
[2024-10-04 21:58] LABS: COVID-19 PCR Negative (Negative); Influenza A PCR Negative (Negative); Influenza B PCR Negative (Negative); RSV PCR Negative (Negative)
--- NOTE | 2024-10-04 22:00 | DI.RAD_ITS ---
Exam(s) XR PORTABLE CHEST AP EXAM: XR PORTABLE CHEST AP CLINICAL HISTORY: fever. TECHNIQUE: 2D digital imaging was performed. COMPARISON: No exams were available for comparison FINDINGS: Single AP portable view. There is bipolar left subclavian pacemaker with lead tips in RA and RV. There is cardiomegaly. Mediastinum is not widened. There is infiltrate in left lower lobe and a moderate size left pleural effusion. Platelike atelecta sis noted in the right lung base. No pleural effusion seen on the right side. No fractures evident. Left shoulder prosthesis evident. IMPRESSION: Left lower lobe infiltrate and moderate sized left pleural effusion. Platelike atelectasis in the opposite-right lung base. Cardiomegaly and bipolar pacemaker. DATA REPOSITORY: RADIATION DOSE DELIVERED:
[2024-10-04 22:01] LABS: Source Nasopharynx
[2024-10-04 22:04] LABS: Procalcitonin < 0.10 ng/mL
--- NOTE | 2024-10-04 22:14 | DI.VRAD_ITS ---
PROCEDURE INFORMATION: Exam: CT Neck With Contrast Exam date and time: 10/04/2024 9:31 PM Age: 79 years old Clinical indication: Recent abscess, recurrent fever; Prior surgery; Surgery date: 6+ months: Neck surgery, pacemaker, shoulder TECHNIQUE: Imaging protocol: Computed tomography of the neck with contrast. Radiation optimization: All CT scans at this facility use at least one of these dose optimization techniques: automated exposure control; mA and/or kV adjustment per patient size (includes targeted exams where dose is matched to clinical indication); or iterative reconstruction. Contrast material: OMNIPAQUE 350; Contrast volume: 100 ml; Contrast route: INTRAVENOUS (IV); COMPARISON: CT NECK W 09/09/2024 9:19 AM FINDINGS: Salivary glands: Normal. Glands are normal in size. Pharynx: Unremarkable. No significant tonsillar enlargement. Larynx: Unremarkable. Epiglottis is normal. Thyroid: Normal. No enlarged or calcified nodules. Trachea: Visualized trachea is unremarkable. Lungs: Unremarkable as visualized. Lymph nodes: Unremarkable. No lymphadenopathy. Bones/joints: Spinal degenerative changes. Soft tissues: Compared to the prior CT neck with contrast dated 09/09/24, interval resolution of posterior neck soft tissue abscess / infection. No evidence of recurrent soft tissue abscess. IMPRESSION: Compared to the prior CT neck with contrast dated 09/09/24, interval resolution of posterior neck soft tissue abscess / infection. No evidence of recurrent soft tissue abscess. Dictated and Authenticated by: Evan Forde MD. Orderin Onur Olivera MD
[2024-10-04 22:19] LABS: WBC 0.68 10^3/uL (4.4-10.8)
[2024-10-04 22:20] LABS: Absolute Neutrophil Count 0.02 10^3/uL (1.2-6.7); Atypical Lymphocytes % 0 %
[2024-10-04 22:21] LABS: Absolute Eosinophil Count 0.03 10^3/uL (0.0-0.7); Diff Comment Manual Differential; RBC Morphology Normal
[2024-10-04] MEDS: PIPERACILLIN/TAZO 4.5 GM in Normal Saline 100 ML IVPB (22:21)
[2024-10-04] MEDS: Normal Saline 1,000 ML 1000 ML IV (22:24)
[2024-10-04] MEDS: VANCOMYCIN 2,000 MG in Normal Saline 500 ML 250 MG IVPB (22:25)
[2024-10-04] MEDS: ACETAMINOPHEN 1,000 MG/100 ML BAG 400 MG IVPB (22:25)
--- NOTE | 2024-10-04 22:38 | DI.VRAD_ITS ---
PROCEDURE INFORMATION: Exam: XR Chest Exam date and time: 10/04/2024 10:27 PM Age: 79 years old Clinical indication: Fever TECHNIQUE: Imaging protocol: Radiologic exam of the chest. Views: 1 view. COMPARISON: No relevant prior studies available. FINDINGS: Lungs: No right lung infiltrate. Right basilar linear parenchymal scarring or subsegmental collapse / atelectasis. Left lung base infiltrate and/or atelectasis. Pleural spaces: No pneumothorax. No right pleural fluid collection. Small left pleural fluid collection. Heart/Mediastinum: Prominent cardiac silhouette. Prior pacemaker lead placement. Vasculature: Calcific thoracic aorta. Bones/joints: Spinal degenerative changes. IMPRESSION: 1. Left lung base infiltrate and/or atelectasis. 2. Small left pleural fluid collection. 3. Right basilar linear parenchymal scarring or subsegmental collapse / atelectasis. Dictated and Authenticated by: Evan Forde MD. Orderin Onur Olivera MD
[2024-10-04 22:55] LABS: ALT 16 U/L (16-63); AST 23 U/L (15-37); Albumin 3.3 g/dL (3.4-5.0); Alkaline Phosphatase 104 U/L (46-116); Anion Gap 7.8 mmol/L (3-11); BUN 17 mg/dL (7-18); Bilirubin, Total 0.8 mg/dL (0.2-1.0); CO2 25.2 mmol/L (21.0-32.0); CREATININE 1.1 mg/dL (0.70-1.30); Calcium 8.7 mg/dL (8.5-10.1); Chloride 101 mmol/L (98-107); Estimated GFR 68.29 (mL/min/1.73m2); Glucose 111 mg/dL (74-106); Potassium 4.2 mmol/L (3.5-5.1); Sodium 134 mmol/L (136-145)
[2024-10-04 23:43] LABS: Bilirubin Negative (Negative); Blood Negative (Negative); Clarity Clear (Clear); Glucose Negative (Negative); Ketones Negative (Negative); Leukocyte Esterase Negative (Negative); Nitrite Negative (Negative); Urobilinogen 0.2 mg/dL (Up to 0.2)
[2024-10-05] VITALS (67 sets, daily range): BP systolic 106–138; BP diastolic 70–85; PULSE 72–101; RESP 12–24; TEMP 36.6–38.8; O2SAT 93–100
--- NOTE | 2024-10-05 00:08 | HPE_ITS ---
Date of service: 10/05/24 Time of Service: 00:08 History of Present Illness History of Present Illness Chief Complaint: fever PFSH All Active Problems (Updated 10/05/24 @ 00:17 by Ronal Ramirez MD) Neutropenia (Acute) Neutropenic fever (Acute) Postoperative abscess (Acute 08/2024) Post Laminectomy, draining abscess Tubular adenoma of colon (Acute 03/2024) Psoriasis (Chronic) scalp Lumbar radiculitis (Acute) Hematuria (Acute) Hip pain (Acute) Rotator cuff arthropathy of right shoulder (Acute) Nocturia (Acute) Dr. Perez recommended nightly ibuprofen 200mg daily. 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 surgical repair [facility] [place] gastritis (Chronic 11/13/17) [facility] [place] WITH ULCERS AND EROSIONS Atrial fibrillation (Chronic 07/30/13) 2005. Ablation x 4 Medical History (Updated 10/05/24 @ 00:17 by Ronal Ramirez MD) Cervical radiculitis Thoracic spinal stenosis Sick sinus syndrome Pacemaker Implant date 10/03/20 [place] [facility] [place]. Esteban Gore. [employer] accolade MRI [id number] RH History of CVA (cerebrovascular accident) without residual deficits Ileocolic anastomotic leak (11/19/16) Diverticulosis of colon without diverticulitis (08/24/13) Crohn's disease resection distal small bowel and prox colon age 35 needs colonoscopy at 5 year intervals Carcinoma of prostate (07/30/13) [place] 10 2008. Radiation and lupron; on PSA monitoring q 4 months - high sens PSA. Surgical History (System 09/20/24 @ 16:10 by Suzan Neville) Status post replacement of left shoulder joint History of bilateral cataract extraction (11/19/16) History of bowel resection History of neck surgery (1994) was very helpful for his symptoms -- C4-5 Status post inguinal hernia repair Status post shoulder surgery Family History (System 09/20/24 @ 16:10 by Suzan Neville) Mother , 81 Heart disease CHF Father , 69 Diabetes Stroke Alcohol abuse Brother Age: 81 Scoliosis Maternal Grandfather Heart disease Paternal Grandfather No problems noted. Maternal Grandmother Stroke Paternal Grandmother No problems noted. Daughter Depression Son Heart disease Social History (System 09/20/24 @ 16:10 by Suzan Neville) Smoking/Tobacco Use Status: Never Tobacco: How many years used: 3 Second Hand Exposure: Yes Smoking risk assessment performed?: Yes Alcohol Intake: current Alcohol Intake frequency: a few times a week Alcohol type: wine and hard liquor Drug use: Never Substance use type: does not use Counseling given: No Adopted: No Caregiver/Support person: Yes Details: Household members: spouse Housing: house Number of Children: 2 number of grandchildren: 2 Communication Needs: Hard of Hearing and Corrective Lenses Education Level: master's degree Do you need help understanding health information?: Rarely 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, [employer], [employer]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 Pets and animals: Yes Pets and animals: dog(s) and bird(s) Sexually active: No Do you think of yourself as: straight/heterosexual Current gender identity: male What is your relationship status?: How often do you talk on the phone with friends or family?: twice per week How often do you get together with friends or relatives?: three or more times per week How often do you attend quaker or mandaeism services?: 1-3 times per year Do you belong to any clubs or organized social groups?: yes Panel score (0-1 are the most socially isolated patients): 3 What type of physical activity do you participate in: walking, bicycling and other Details: spining Duration: 30-45 minutes/day Frequency: 3-4 times per week Meaghan/Jehovah'S Witness: No preference Special meaghan needs: No Seatbelt use: always Helmet use: Yes Helmet use: always Drive intox or ride w/intox otr company driver: No Do you feel safe at home: Yes Do you feel safe in your relationship?: Yes Meds Allergies and Home Medications Allergies Allergy/AdvReac Type Severity Reaction Status Date / Time No Known Drug Allergies AdvReac Unknown Unknown Verified 10/04/24 22:50 Home Medications ?Medication ?Instructions ?Recorded ?Confirmed ?Type colestipol 1 gram tablet (Colestid) 1 gm PO BID #180 tabs 05/13/18 10/04/24 Rx triamcinolone acetonide 0.1 % 1 applic topical BID #453.6 grams 12/31/19 09/24/24 Rx topical cream pantoprazole 20 mg tablet,delayed 20 mg PO DAILY 12/19/21 10/04/24 History release diphenoxylate-atropine 2.5 1 tab PO qid prn #90 tab-caps 07/11/23 10/04/24 Rx mg-0.025 mg tablet (Lomotil) tildrakizumab-asmn 100 mg/mL 100 mg subcut Q12W 03/02/24 10/04/24 History subcutaneous syringe (Ilumya) atorvastatin 20 mg tablet 20 mg PO QHS #90 tabs 04/29/24 10/04/24 Rx apixaban 5 mg tablet (Eliquis) 5 mg PO BID #180 tabs 08/02/24 10/04/24 Rx cefazolin 2 gram intravenous 2 g IV Q8H 09/15/24 10/04/24 History solution cholecalciferol (vitamin D3) 25 2,000 unit PO DAILY 09/24/24 10/04/24 History mcg (1,000 unit) capsule tizanidine 2 mg capsule (Zanaflex) 2 mg PO Q8H PRN 09/24/24 09/24/24 History diltiazem HCl 120 mg 120 mg PO DAILY 10/04/24 10/04/24 History capsule,extended release 24 hr Results Labs 10/04/24 21:20 10/04/24 22:26 Labs: Laboratory Results - last 24 hr 03/24/25 03/24/25 03/24/25 21:14 21:20 22:26 WBC 0.68 L* RBC 4.49 Hgb 13.1 L Hct 39.8 L MCV 89 MCH 29.2 MCHC 32.9 RDW 14.5 H Plt Count 192 MPV 10.3 Immature Gran % 0.0 Neutrophils % 6.0 Lymphocytes % 74.0 Atypical Lymphs % 0 Monocytes % 14.0 Eosinophils % 4.0 Basophils % 2.0 Nucleated RBC % 0.0 Absolute Neutrophils 0.02 L* Absolute Lymphocytes 0.50 L Absolute Monocytes 0.10 Absolute Eosinophils 0.03 Absolute Basophils 0.01 RBC Morphology Normal ESR 16 PT 11.6 H INR 1.2 H APTT 27.9 VBG Lactate 1.2 Sodium 134 L Potassium 4.2 Chloride 101 Carbon Dioxide 25.2 Anion Gap 7.8 BUN 17 Creatinine 1.1 Est GFR (CKD-EPI 2020) 68.29 Glucose 111 H Calcium 8.7 Total Bilirubin 0.8 AST 23 ALT 16 Alkaline Phosphatase 104 C-Reactive Protein < 0.50 Total Protein 7.0 Albumin 3.3 L Procalcitonin < 0.10 Urine Color Urine Clarity Urine pH Ur Specific [place] Urine Protein Urine Ketones Urine Blood Urine Nitrite Urine Bilirubin Urine Urobilinogen Ur Leukocyte Esterase Urine Glucose COVID-19 Source Nasopharynx SARS-CoV-2 (PCR) Negative Influenza Type A (PCR) Negative Influenza Type B (PCR) Negative RSV (PCR) Negative 10/04/24 23:37 WBC RBC Hgb Hct MCV MCH MCHC RDW Plt Count MPV Immature Gran % Neutrophils % Lymphocytes % Atypical Lymphs % Monocytes % Eosinophils % Basophils % Nucleated RBC % Absolute Neutrophils Absolute Lymphocytes Absolute Monocytes Absolute Eosinophils Absolute Basophils RBC Morphology ESR PT INR APTT VBG Lactate Sodium Potassium Chloride Carbon Dioxide Anion Gap BUN Creatinine Est GFR (CKD-EPI 2020) Glucose Calcium Total Bilirubin AST ALT Alkaline Phosphatase C-Reactive Protein Total Protein Albumin Procalcitonin Urine Color Yellow Urine Clarity Clear Urine pH 5.0 Ur Specific [place] 1.010 Urine Protein Trace Urine Ketones Negative Urine Blood Negative Urine Nitrite Negative Urine Bilirubin Negative Urine Urobilinogen 0.2 Ur Leukocyte Esterase Negative Urine Glucose Negative COVID-19 Source SARS-CoV-2 (PCR) Influenza Type A (PCR) Influenza Type B (PCR) RSV (PCR) Last Vital Signs Temp 39.4 C H 10/04/24 21:02 Pulse 96 H 10/04/24 22:36 Resp 17 10/04/24 22:36 BP 121/84 10/04/24 22:34 Pulse Ox 95 10/04/24 22:36 PAWSS Have you Been Recently Intoxicated or Drunk Within the Last 30 days?: No Have you Ever Experienced Previous Episodes of Alcohol Withdrawal?: No Have you ever Experienced Withdrawal Seizures?: No Have you ever Experienced Delirium Tremens(DT)s?: No Have you ever undergone Alcohol Rehabilitation Treatment (i.e, inpt ot outpatient treatment programs)?: No Have you ever Experienced Blackouts?: No Have you ever Combined Alcohol with other Downers within the last 90 days?: No Have you ever Combined Alcohol with any other Substance of Abuse during the last 90 days?: No Positive Blood Alcohol level on Presentation? [PCS.BAL]: No Evidence of Increased Autonomic Activity (i.e. HR>120, tremor, sweating, agitation, nausea)?: No Result: 0 Time Spent Time spent with Patient: 40-54 minutes Time was spent: preparing to see the patient(eg.review tests), obtaining and/or reviewing separately otained hiistory, ordering medications,tests, procedures, referring, communicating with other health rn progressive care, indepentently interpreting results, counseling the patient and care coordination
--- NOTE | 2024-10-05 00:11 | W.PM.HP.N ---
Date of service: 10/05/24 Time of Service: 00:11 Assessment and Plan Assessment and plan (1) Neutropenia: Status: Acute Assessment and plan: Per my discussion with infectious disease and recommending vancomycin and ertapenem and is both been added (2) Atrial fibrillation: Status: Chronic Assessment and plan: Continue with rate control with his Cardizem as well as Eliquis for CVA protection (3) Chronic anticoagulation: Status: Chronic Assessment and plan: Continue with Eliquis (4) Pacemaker: Status: Acute Assessment and plan: Follow-up in the outpatient setting as required (5) Hyperlipemia: Status: Acute Assessment and plan: Continue with his statin (6) Postoperative abscess: Status: Acute Assessment and plan: At this point does not appear to have any sort of surgical abscess. As mentioned above the idea behind the neutropenia is and could be due to the cefazolin and the recommendation is to repeat a CBC CMP in the am. History of Present Illness History of Present Illness Chief Complaint: fever Narrative: This is a 79-year-old gentleman who recently had a cervical cord decompression at [facility]. Unfortunately the patient developed a postoperative infection and required washout. Patient had been on cefazolin for antibiotic treatment for this infection. Apparently he had some serial screening labs which showed significant neutropenia and his neurosurgical team recommend he come in here for further evaluation and treatment. The patient's case was presented to the neurosurgical team by Dr. Mohr and they told him they did not feel need for emergent transfer for urgent transfer. Conversation then was had with infectious disease who recommended ertapenem and vancomycin for antibiotics coverage. The working diagnosis is this is due to his cefazolin which in reviewing the side effects can cause neutropenia as well as leukopenia. In reviewing his chest x-ray there was some concern about pneumonia versus atelectasis. In my discussion with the patient he denies any signs and symptoms consistent with a pneumonia only had a fever today that resolved on its own. The patient will be admitted to the hospitalist service for further evaluation and treatment of note the patient does have a PICC line that does not look infected and the infectious disease team did not believe needed to be removed at this point. Furthermore his surgical wounds thoracic and cervical spine appear clean dry and intact. In reviewing his records it appears he does have a for at least did have a abnormality in his left diaphragm which was surgically repaired Review of Systems Narrative: 14 point review of systems is negative with the exceptions of above PFSH All Active Problems (Updated 10/05/24 @ 00:17 by Ronal Ramirez MD) Neutropenia (Acute) Neutropenic fever (Acute) Postoperative abscess (Acute 08/2024) Post Laminectomy, draining abscess Tubular adenoma of colon (Acute 03/2024) Psoriasis (Chronic) scalp Lumbar radiculitis (Acute) Hematuria (Acute) Hip pain (Acute) Rotator cuff arthropathy of right shoulder (Acute) Nocturia (Acute) Dr. Perez recommended nightly ibuprofen 200mg daily. 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 Ablation x 4 Medical History (Updated 10/05/24 @ 00:17 by Ronal Ramirez MD) Cervical radiculitis Thoracic spinal stenosis Sick sinus syndrome Pacemaker Implant date 10/03/20 Followed by [facility] [place] Cardiology Dr. Esteban Gore. [employer] accolade MRI [id number] RH History of CVA (cerebrovascular accident) without residual deficits Ileocolic anastomotic leak (11/19/16) Diverticulosis of colon without diverticulitis (08/24/13) Crohn's disease resection distal small bowel and prox colon age 35 needs colonoscopy at 5 year intervals Carcinoma of prostate (07/30/13) [place] 10 2008. Radiation and lupron; on PSA monitoring q 4 months - high sens PSA. Surgical History (System 09/20/24 @ 16:10 by Suzan Neville) Status post replacement of left shoulder joint History of bilateral cataract extraction (11/19/16) History of bowel resection History of neck surgery (1994) was very helpful for his symptoms -- C4-5 Status post inguinal hernia repair Status post shoulder surgery Family History (System 09/20/24 @ 16:10 by Suzan Neville) Mother , 81 Heart disease CHF Father , 69 Diabetes Stroke Alcohol abuse Brother Age: 81 Scoliosis Maternal Grandfather Heart disease Paternal Grandfather No problems noted. Maternal Grandmother Stroke Paternal Grandmother No problems noted. Daughter Depression Son Heart disease Social History (System 09/20/24 @ 16:10 by Suzan Neville) Smoking/Tobacco Use Status: Never Tobacco: How many years used: 3 Second Hand Exposure: Yes Smoking risk assessment performed?: Yes Alcohol Intake: current Alcohol Intake frequency: a few times a week Alcohol type: wine and hard liquor Drug use: Never Substance use type: does not use Counseling given: No Adopted: No Caregiver/Support person: Yes Details: Household members: spouse Housing: house Number of Children: 2 number of grandchildren: 2 Communication Needs: Hard of Hearing and Corrective Lenses Education Level: master's degree Do you need help understanding health information?: Rarely 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, [employer], [employer]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 Pets and animals: Yes Pets and animals: dog(s) and bird(s) Sexually active: No Do you think of yourself as: straight/heterosexual Current gender identity: male What is your relationship status?: How often do you talk on the phone with friends or family?: twice per week How often do you get together with friends or relatives?: three or more times per week How often do you attend confucianism or advent services?: 1-3 times per year Do you belong to any clubs or organized social groups?: yes Panel score (0-1 are the most socially isolated patients): 3 What type of physical activity do you participate in: walking, bicycling and other Details: spining Duration: 30-45 minutes/day Frequency: 3-4 times per week Meaghan/Uatsdin: No preference Special meaghan needs: No Seatbelt use: always Helmet use: Yes Helmet use: always Drive intox or ride w/intox frontload driver: No Do you feel safe at home: Yes Do you feel safe in your relationship?: Yes Meds Allergies and Home Medications Allergies Allergy/AdvReac Type Severity Reaction Status Date / Time No Known Drug Allergies AdvReac Unknown Unknown Verified 10/04/24 22:50 Home Medications ?Medication ?Instructions ?Recorded ?Confirmed ?Type colestipol 1 gram tablet (Colestid) 1 gm PO BID #180 tabs 05/13/18 10/04/24 Rx triamcinolone acetonide 0.1 % 1 applic topical BID #453.6 grams 12/31/19 09/24/24 Rx topical cream pantoprazole 20 mg tablet,delayed 20 mg PO DAILY 12/19/21 10/04/24 History release diphenoxylate-atropine 2.5 1 tab PO qid prn #90 tab-caps 07/11/23 10/04/24 Rx mg-0.025 mg tablet (Lomotil) tildrakizumab-asmn 100 mg/mL 100 mg subcut Q12W 03/02/24 10/04/24 History subcutaneous syringe (Ilumya) atorvastatin 20 mg tablet 20 mg PO QHS #90 tabs 04/29/24 10/04/24 Rx apixaban 5 mg tablet (Eliquis) 5 mg PO BID #180 tabs 08/02/24 10/04/24 Rx cefazolin 2 gram intravenous 2 g IV Q8H 09/15/24 10/04/24 History solution cholecalciferol (vitamin D3) 25 2,000 unit PO DAILY 09/24/24 10/04/24 History mcg (1,000 unit) capsule tizanidine 2 mg capsule (Zanaflex) 2 mg PO Q8H PRN 09/24/24 09/24/24 History diltiazem HCl 120 mg 120 mg PO DAILY 10/04/24 10/04/24 History capsule,extended release 24 hr Exam Narrative Exam Narrative: Head eyes ears nose and throat: Normal cephalic atraumatic mucous memories moist oropharynx clear extract motions are intact pupils are equal round reactive to light Neck: No lymphadenopathy no JVD no thyromegaly cervical surgical wound clean dry and intact Cardiovascular: Regular rate and rhythm no murmur rubs or gallops Lungs: Clear to auscultation bilaterally with good air exchange no accessory muscle use is noted in all Abdomen: Soft nontender nondistended bowel sounds active Back: Thoracic surgical wound looks clean dry and intact Extremities: No sinus clubbing or edema bilaterally Neurologic: Cranial nerves II through XII are intact as tested reflexes upper extremity normal as tested no sign of neurologic compromise Psych: Alert and oriented x 3 no apparent distress can give a linear history General: 79-year-old gentleman appears younger than his stated age no apparent distress Results Labs 10/04/24 21:20 10/04/24 22:26 Labs: Laboratory Results - last 24 hr 10/04/24 10/04/24 10/04/24 21:14 21:20 22:26 WBC 0.68 L* RBC 4.49 Hgb 13.1 L Hct 39.8 L MCV 89 MCH 29.2 MCHC 32.9 RDW 14.5 H Plt Count 192 MPV 10.3 Immature Gran % 0.0 Neutrophils % 6.0 Lymphocytes % 74.0 Atypical Lymphs % 0 Monocytes % 14.0 Eosinophils % 4.0 Basophils % 2.0 Nucleated RBC % 0.0 Absolute Neutrophils 0.02 L* Absolute Lymphocytes 0.50 L Absolute Monocytes 0.10 Absolute Eosinophils 0.03 Absolute Basophils 0.01 RBC Morphology Normal ESR 16 PT 11.6 H INR 1.2 H APTT 27.9 VBG Lactate 1.2 Sodium 134 L Potassium 4.2 Chloride 101 Carbon Dioxide 25.2 Anion Gap 7.8 BUN 17 Creatinine 1.1 Est GFR (CKD-EPI 2020) 68.29 Glucose 111 H Calcium 8.7 Total Bilirubin 0.8 AST 23 ALT 16 Alkaline Phosphatase 104 C-Reactive Protein < 0.50 Total Protein 7.0 Albumin 3.3 L Procalcitonin < 0.10 Urine Color Urine Clarity Urine pH Ur Specific [place] Urine Protein Urine Ketones Urine Blood Urine Nitrite Urine Bilirubin Urine Urobilinogen Ur Leukocyte Esterase Urine Glucose COVID-19 Source Nasopharynx SARS-CoV-2 (PCR) Negative Influenza Type A (PCR) Negative Influenza Type B (PCR) Negative RSV (PCR) Negative 10/04/24 23:37 WBC RBC Hgb Hct MCV MCH MCHC RDW Plt Count MPV Immature Gran % Neutrophils % Lymphocytes % Atypical Lymphs % Monocytes % Eosinophils % Basophils % Nucleated RBC % Absolute Neutrophils Absolute Lymphocytes Absolute Monocytes Absolute Eosinophils Absolute Basophils RBC Morphology ESR PT INR APTT VBG Lactate Sodium Potassium Chloride Carbon Dioxide Anion Gap BUN Creatinine Est GFR (CKD-EPI 2020) Glucose Calcium Total Bilirubin AST ALT Alkaline Phosphatase C-Reactive Protein Total Protein Albumin Procalcitonin Urine Color Yellow Urine Clarity Clear Urine pH 5.0 Ur Specific [place] 1.010 Urine Protein Trace Urine Ketones Negative Urine Blood Negative Urine Nitrite Negative Urine Bilirubin Negative Urine Urobilinogen 0.2 Ur Leukocyte Esterase Negative Urine Glucose Negative COVID-19 Source SARS-CoV-2 (PCR) Influenza Type A (PCR) Influenza Type B (PCR) RSV (PCR) Last Vital Signs Temp 39.4 C H 10/04/24 21:02 Pulse 96 H 10/04/24 22:36 Resp 17 10/04/24 22:36 BP 121/84 10/04/24 22:34 Pulse Ox 95 10/04/24 22:36 PAWSS Have you Been Recently Intoxicated or Drunk Within the Last 30 days?: No Have you Ever Experienced Previous Episodes of Alcohol Withdrawal?: No Have you ever Experienced Withdrawal Seizures?: No Have you ever Experienced Delirium Tremens(DT)s?: No Have you ever undergone Alcohol Rehabilitation Treatment (i.e, inpt ot outpatient treatment programs)?: No Have you ever Experienced Blackouts?: No Have you ever Combined Alcohol with other Downers within the last 90 days?: No Have you ever Combined Alcohol with any other Substance of Abuse during the last 90 days?: No Positive Blood Alcohol level on Presentation? [PCS.BAL]: No Evidence of Increased Autonomic Activity (i.e. HR>120, tremor, sweating, agitation, nausea)?: No Result: 0 Time Spent Time spent with Patient: 40-54 minutes Time was spent: preparing to see the patient(eg.review tests), obtaining and/or reviewing separately otained hiistory, ordering medications,tests, procedures, referring, communicating with other health customer care specialist, indepentently interpreting results, counseling the patient and care coordination
--- NOTE | 2024-10-05 01:00 | W.PC.ACHO ---
Registration Status: Primary Language: Preferred Language: ED Information & Data Chief Complaint Fever 10/04/24 21:11 Triage Note PT contacted by an 10/04/24 20:57 infectious disease specialist from [facility] called PT and was concerned about a low WBC. PT has had a steady increase of temp over the course of the day. Currently febrile. PT reports feeling febrile starting 1700 today. Relatively sudden onset. Recently treated for STAPH infection. Medical / Surgical History (This Medical Record has been edited. Action required.) Cervical radiculitis Thoracic spinal stenosis Sick sinus syndrome Pacemaker History of CVA (cerebrovascular accident) without residual deficits Ileocolic anastomotic leak (11/19/16) Diverticulosis of colon without diverticulitis (08/24/13) Crohn's disease Carcinoma of prostate (07/30/13) (This Medical Record has been edited. Action required.) Status post replacement of left shoulder joint History of bilateral cataract extraction (11/19/16) History of bowel resection History of neck surgery (1994) Status post inguinal hernia repair Status post shoulder surgery Most Recent Vital Signs Temperature 38.3 C H 10/05/24 00:00 Temperature Source Temporal Artery Scan 10/05/24 00:00 Pulse 94 H 10/05/24 00:20 Respiratory Rate 17 10/05/24 00:20 Respiratory Effort Normal, Non-Labored 10/05/24 00:00 Respiratory Depth Normal 10/05/24 00:00 Respiratory Pattern Normal 10/05/24 00:00 Blood Pressure 113/72 10/05/24 00:01 Blood Pressure Position Sitting 10/04/24 21:02 Pulse Oximetry 97 10/05/24 00:20 Oxygen Delivery Method Room Air 10/05/24 00:00 Oxygen Flow Rate 0 10/05/24 00:00 Allergies No Known Drug Allergies Adverse Reaction (Unknown, Verified 10/04/24 22:50) Unknown Active Medications Generic Name Dose Route Start Last Admin Trade Name Freq PRN Reason Stop Dose Admin Iohexol 100 ml 10/04/24 21:30 10/04/24 21:17 Omnipaque 350 Mg/Ml 100 Ml Btl IJ 11/03/24 23:59 100 ml DIRECTED NOVA Administration Sodium Chloride 0 ml 10/04/24 20:56 10/04/24 21:30 Normal Saline Flush 10 Ml Syr IVP 10 ml PRN PRN Administration Sodium Chloride 50 ml 10/04/24 21:30 10/04/24 21:30 Normal Saline - Diluent 50 Ml Vial IJ 50 ml .FOR DI USE NOVA Administration IV IV Catheter Type [Right PICC] PICC Line IV Catheter Type [Left Saline Lock Antecubital] IV Catheter Gauge [Right PICC] 18 IV Catheter Gauge [Left 18 Antecubital] Diagnostics 10/05/24 10/04/24 10/04/24 Range/Units 05:35 23:37 22:26 WBC Pending (4.4-10.8) 10^3/uL RBC Pending (4.36-5.78) 10^6/uL Hgb Pending (13.5-17.5) g/dL Hct Pending (40.0-50.0) % MCV Pending (80-95) fL MCH Pending (27.0-33.0) pg MCHC Pending (32.0-36.0) % RDW Pending (11.8-14.1) % Plt Count Pending (130-400) 10^3/uL MPV Pending (8.0-11.0) fL Immature Gran % Pending % Neutrophils % Pending % Lymphocytes % Pending % Atypical Lymphs % % Monocytes % Pending % Eosinophils % Pending % Basophils % Pending % Nucleated RBC % (0.0-0.3) % Absolute Neutrophils Pending (1.2-6.7) 10^3/uL Absolute Lymphocytes Pending (1.2-3.4) 10^3/uL Absolute Monocytes Pending (0.1-0.8) 10^3/uL Absolute Eosinophils Pending (0.0-0.7) 10^3/uL Absolute Basophils Pending (0.0-0.2) 10^3/uL RBC Morphology ESR (0-20) mm/hr PT (9.1-11.1) sec INR (0.9-1.1) APTT (20.6-30.2) sec VBG Lactate (<or=2.0) mmol/L Sodium Pending 134 L (136-145) mmol/L Potassium Pending 4.2 (3.5-5.1) mmol/L Chloride Pending 101 (98-107) mmol/L Carbon Dioxide Pending 25.2 (21.0-32.0) mmol/L Anion Gap Pending 7.8 (3-11) mmol/L BUN Pending 17 (7-18) mg/dL Creatinine Pending 1.1 (0.70-1.30) mg/dL Est GFR (CKD-EPI 2020) Pending 68.29 (mL/min/1.73m2) Glucose Pending 111 H (74-106) mg/dL Calcium Pending 8.7 (8.5-10.1) mg/dL Total Bilirubin Pending 0.8 (0.2-1.0) mg/dL AST Pending 23 (15-37) U/L ALT Pending 16 (16-63) U/L Alkaline Phosphatase Pending 104 (46-116) U/L C-Reactive Protein (<or=0.5) mg/dL Total Protein Pending 7.0 (6.4-8.2) g/dL Albumin Pending 3.3 L (3.4-5.0) g/dL Procalcitonin ng/mL Urine Color Yellow (Yellow) Urine Clarity Clear (Clear) Urine pH 5.0 (5-8) Ur Specific [place] 1.010 (1.005-1.025) Urine Protein Trace (Neg-Trace) mg/dL Urine Ketones Negative (Negative) mg/dL Urine Blood Negative (Negative) Urine Nitrite Negative (Negative) Urine Bilirubin Negative (Negative) Urine Urobilinogen 0.2 (Up to 0.2) mg/dL Ur Leukocyte Esterase Negative (Negative) Urine Glucose Negative (Negative) mg/dL COVID-19 Source SARS-CoV-2 (PCR) (Negative) Influenza Type A (PCR) (Negative) Influenza Type B (PCR) (Negative) RSV (PCR) (Negative) 10/04/24 10/04/24 Range/Units 21:20 21:14 WBC 0.68 L* (4.4-10.8) 10^3/uL RBC 4.49 (4.36-5.78) 10^6/uL Hgb 13.1 L (13.5-17.5) g/dL Hct 39.8 L (40.0-50.0) % MCV 89 (80-95) fL MCH 29.2 (27.0-33.0) pg MCHC 32.9 (32.0-36.0) % RDW 14.5 H (11.8-14.1) % Plt Count 192 (130-400) 10^3/uL MPV 10.3 (8.0-11.0) fL Immature Gran % 0.0 % Neutrophils % 6.0 % Lymphocytes % 74.0 % Atypical Lymphs % 0 % Monocytes % 14.0 % Eosinophils % 4.0 % Basophils % 2.0 % Nucleated RBC % 0.0 (0.0-0.3) % Absolute Neutrophils 0.02 L* (1.2-6.7) 10^3/uL Absolute Lymphocytes 0.50 L (1.2-3.4) 10^3/uL Absolute Monocytes 0.10 (0.1-0.8) 10^3/uL Absolute Eosinophils 0.03 (0.0-0.7) 10^3/uL Absolute Basophils 0.01 (0.0-0.2) 10^3/uL RBC Morphology Normal ESR 16 (0-20) mm/hr PT 11.6 H (9.1-11.1) sec INR 1.2 H (0.9-1.1) APTT 27.9 (20.6-30.2) sec VBG Lactate 1.2 (<or=2.0) mmol/L Sodium (136-145) mmol/L Potassium (3.5-5.1) mmol/L Chloride (98-107) mmol/L Carbon Dioxide (21.0-32.0) mmol/L Anion Gap (3-11) mmol/L BUN (7-18) mg/dL Creatinine (0.70-1.30) mg/dL Est GFR (CKD-EPI 2020) (mL/min/1.73m2) Glucose (74-106) mg/dL Calcium (8.5-10.1) mg/dL Total Bilirubin (0.2-1.0) mg/dL AST (15-37) U/L ALT (16-63) U/L Alkaline Phosphatase (46-116) U/L C-Reactive Protein < 0.50 (<or=0.5) mg/dL Total Protein (6.4-8.2) g/dL Albumin (3.4-5.0) g/dL Procalcitonin < 0.10 ng/mL Urine Color (Yellow) Urine Clarity (Clear) Urine pH (5-8) Ur Specific [place] (1.005-1.025) Urine Protein (Neg-Trace) mg/dL Urine Ketones (Negative) mg/dL Urine Blood (Negative) Urine Nitrite (Negative) Urine Bilirubin (Negative) Urine Urobilinogen (Up to 0.2) mg/dL Ur Leukocyte Esterase (Negative) Urine Glucose (Negative) mg/dL COVID-19 Source Nasopharynx SARS-CoV-2 (PCR) Negative (Negative) Influenza Type A (PCR) Negative (Negative) Influenza Type B (PCR) Negative (Negative) RSV (PCR) Negative (Negative) 10/04/24 23:01 Blood Culture - Pending Blood 10/04/24 22:26 Blood Culture - Pending Blood 10/04/24 21:20 Blood Culture - Pending Blood Intake and Output - 24 Hour Total 10/04/24 20:53 thru 10/04/24 22:54 Intake Total 1200 Balance 1200 Weight 83.007 kg Intake: IV 1200 Falls Risk Assessment History of Falls No History 10/04/24 21:02 Contributing Factors No Factors 10/04/24 21:02 Ambulatory Aids Independent 10/04/24 21:02 Tubes/Lines None 10/04/24 21:02 Gait Evaluation No gait disturbance 10/04/24 21:02 Cognition No cognitive impairment 10/04/24 21:02 Fall Total Score 0 10/04/24 21:02 Level of Risk Standard/Low Risk 10/04/24 21:02 Problems (This Medical Record has been edited. Action required.) Neutropenia (Acute) Postoperative abscess (Acute 08/2024) Hyperlipemia (Acute) Pacemaker (Acute) Chronic anticoagulation (Chronic) Atrial fibrillation (Chronic 07/30/13) v v v v v v v v v Sending and/or Receiving Nurses: Please use comment section below to note any information pertinent to the patient hand-off not included above. Information / Comments: C-spine fusion at [facility], epidural abscess, Right PICC (ID at [facility] recommend leaving in), #18 LAC, pip yuval and vanco given Report received from: Jackie Box, TORIE @ 0042
[2024-10-05] MEDS: ERTAPENEM 1 GM in Normal Saline 50 ML IVPB (02:31)
[2024-10-05] MEDS: Atorvastatin 20 MG TAB PO ×2 (02:32→21:18)
[2024-10-05] MEDS: Normal Saline 1,000 ML 125 ML IV (02:32)
[2024-10-05] MEDS: Normal Saline Flush 10 ML SYR IVP ×3 (02:33→21:18)
[2024-10-05 07:43] LABS: HCT 32.5 % (40.0-50.0); HGB 10.9 g/dL (13.5-17.5); MCH 29.1 pg (27.0-33.0); MCHC 33.5 % (32.0-36.0); MCV 87 fL (80-95); MPV 10.1 fL (8.0-11.0); Platelet Count 146 10^3/uL (130-400); RBC 3.74 10^6/uL (4.36-5.78); RDW 14.7 % (11.8-14.1)
[2024-10-05 08:03] LABS: ALT 17 U/L (16-63); AST 26 U/L (15-37); Albumin 3.1 g/dL (3.4-5.0); Alkaline Phosphatase 93 U/L (46-116); Anion Gap 6.5 mmol/L (3-11); BUN 11 mg/dL (7-18); Bilirubin, Total 1.2 mg/dL (0.2-1.0); CO2 26.5 mmol/L (21.0-32.0); CREATININE 0.9 mg/dL (0.70-1.30); Calcium 8.8 mg/dL (8.5-10.1); Chloride 101 mmol/L (98-107); Estimated GFR 86.88 (mL/min/1.73m2); Glucose 112 mg/dL (74-106); Potassium 3.8 mmol/L (3.5-5.1); Sodium 134 mmol/L (136-145); Total Protein 6.8 g/dL (6.4-8.2)
[2024-10-05 08:16] LABS: Absolute Basophil Count 0.02 10^3/uL (0.0-0.2); Absolute Eosinophil Count 0.02 10^3/uL (0.0-0.7); Absolute Monocyte Count 0.05 10^3/uL (0.1-0.8); Bands % 0 %
[2024-10-05 08:17] LABS: Diff Comment Manual Differential; RBC Morphology Normal
[2024-10-05 08:18] LABS: WBC 0.79 10^3/uL (4.4-10.8)
[2024-10-05 08:19] LABS: Absolute Neutrophil Count 0.01 10^3/uL (1.2-6.7)
[2024-10-05] MEDS: Cholecalciferol (Vitamin D3) 1,000 UNIT TAB 2000 UNITS PO (08:45)
[2024-10-05] MEDS: Pantoprazole 20 MG TABCR PO (08:45)
[2024-10-05] MEDS: dilTIAZem CD 120 MG CAPCR PO (08:46)
[2024-10-05] MEDS: Acetaminophen 325 MG TAB PO ×2 (08:46→15:26)
[2024-10-05] MEDS: Apixaban 5 MG TAB PO ×2 (08:46→21:18)
[2024-10-05] MEDS: Colestipol 1 GM TAB PO ×2 (10:17→23:15)
[2024-10-05 14:55] LABS: Vancomycin, Random 6.9 ug/mL
--- NOTE | 2024-10-05 16:13 | INITIAL_ITS ---
Care Management Initial Assmt Initial Assessment Reason for Hospitalization: neutropenia Functional Status/Living Situation Patient Presentation: Edinson was lying in bed when CM met with him. He appeared flushed with underlying pallor. Edinson stated that his throat was sore and he had a fever (38.8 C). He was polite but reserved in manner and he closed his eyes frequently during the conversation. Edinson was admitted with sudden onset of neutropenia. [place] [facility] [place] and developed an infection. He was being treated with IV Cefazolin which reportedly can cause neutropenia. Edinson has been receiving home IV antibiotic infusions with [facility] providing nursing support and [facility] supplying the equipment and medications. He lives in a single family home in [place] with his Valorie. 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 He has 2 children that live on opposite sides of the country. His son lives in [place] and his daughter is in [place]. Edinson is independent at baseline with ADLs and IADLs. Town of Residence: [place] Resides with: Spouse (Valorie) Significant Other/Family: Out of area Caregiver/Guardian: son in [place]; daughter in [place], [place]. 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) Instrumental Activities of Daily Living (ADLs): Independent Medications Medication Management: No Issues/Barriers identified Physical Functioning/Mobility Assistive Device: none Advance Directives Advance Directives: Do you have an Advance Directive: Y 07/09/18 08:59 AD On File at [facility]: Y 09/20/24 16:42 Date Asked AD Date Reviewed 10/05/24 10/05/24 00:24 COLST On File at [facility] COLST Date Scanned Code Status Resuscitation Status Full Code Insurance Coverage/Financial Issues Insurance: Medicare BC/BS Federal Care Team Visit Care Team Role Provider Type Marco Maldonado MD [facility] STAFF PHYSICIAN Mahnaz Sims MD Primary Care Provider [facility] STAFF PHYSICIAN Carmelina Cooper Other Providers COMMERCIAL BAKER HELPER Dominique Hernandez Other Providers COMMERCIAL BAKER HELPER Liliana Vicente Other Providers COMMERCIAL BAKER HELPER Funmi Strickland RN Other Providers COMMERCIAL BAKER HELPER Jina Ramirez Other Providers COMMERCIAL BAKER HELPER Jarod Mohr MD Emergency Provider [facility] STAFF PHYSICIAN Ronal Ramirez MD Admit Provider [facility] STAFF PHYSICIAN Attending Provider Discharge Potential Discharge Needs: PCP F/U Appt and Surgical F/U Appt Anticipated Barriers to Discharge: None Identified Patient/Family Education Needs: Review discharge instructions, discuss Ask Me Three Transportation: Private vehicle Plan: Anticipate Edinson will be discharged home, possibly with a resumption of home infusion services. There is a possibility that he will require transfer to a tertiary care hospital if he becomes unstable or his condition deteriorates. Edinson will follow up with his surgeon, PCP and plan of care as prescribed and transport with family. CM will follow and continue to support discharge planning efforts. Social Determinants of Health Screening Social Determinants of Health last assessed: 10/05/24 Will the Patient Participate in the Screening?: Yes Do you worry about having a steady place to live?: no Problems where you live: no known problems In the past 12 months, have you had to go without electric, gas, oil or water in your home?: no Have you or anyone in your house had to go without enough food to eat?: no Has lack of transportation kept you from medical appointments or from doing things needed for daily living?: no Has anyone in your life made you feel unsafe or unsupported?: no How hard is it for you to pay for the very basics like food, housing, medical care, and heating? Would you say it is:: Not hard at all Do you want help finding or keeping work or a job?: I do not need or want help If for any reason you need help with day-to-day activities such as bathing, preparing meals, shopping, managing finances, etc., do you get the help you need?: I don?t need any help How often do you feel lonely or isolated from those around you?: Never Do you speak a language other than Turkish at home?: No Does the patient want assistance with any of the above?: No PFSH All Active Problems (Updated 10/05/24 @ 00:17 by Ronal Ramirez MD) Neutropenia (Acute) Neutropenic fever (Acute) Postoperative abscess (Acute 08/2024) Post Laminectomy, draining abscess Tubular adenoma of colon (Acute 03/2024) Psoriasis (Chronic) scalp Lumbar radiculitis (Acute) Hematuria (Acute) Hip pain (Acute) Rotator cuff arthropathy of right shoulder (Acute) Nocturia (Acute) Dr. Perez recommended nightly ibuprofen 200mg daily. 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 surgical repair [facility] [place] gastritis (Chronic 11/13/17) [facility] WITH ULCERS AND EROSIONS Atrial fibrillation (Chronic 07/30/13) 2005. Ablation x 4 Medical History (Updated 10/05/24 @ 00:17 by Ronal Ramirez MD) Cervical radiculitis Thoracic spinal stenosis Sick sinus syndrome Pacemaker Implant date 10/03/20 [place] [facility] [place] Esteban Gore. [employer] accolade MRI [id number] History of CVA (cerebrovascular accident) without residual deficits Ileocolic anastomotic leak (11/19/16) Diverticulosis of colon without diverticulitis (08/24/13) Crohn's disease resection distal small bowel and prox colon age 35 needs colonoscopy at 5 year intervals Carcinoma of prostate (07/30/13) Dong 10 2007. Radiation and lupron; on PSA monitoring q 4 months - high sens PSA. Surgical History (System 09/20/24 @ 16:10 by Suzan Neville) Status post replacement of left shoulder joint History of bilateral cataract extraction (11/19/16) History of bowel resection History of neck surgery (1994) was very helpful for his symptoms -- C4-5 Status post inguinal hernia repair Status post shoulder surgery Family History (System 09/20/24 @ 16:10 by Suzan Neville) Mother , 81 Heart disease CHF Father , 69 Diabetes Stroke Alcohol abuse Brother Age: 81 Scoliosis Maternal Grandfather Heart disease Paternal Grandfather No problems noted. Maternal Grandmother Stroke Paternal Grandmother No problems noted. Daughter Depression Son Heart disease Social History (System 09/20/24 @ 16:10 by Suzan Neville) Smoking/Tobacco Use Status: Never Tobacco: How many years used: 3 Second Hand Exposure: Yes Smoking risk assessment performed?: Yes Alcohol Intake: current Alcohol Intake frequency: a few times a week Alcohol type: wine and hard liquor Drug use: Never Substance use type: does not use Counseling given: No Adopted: No Caregiver/Support person: Yes Details: Household members: spouse Housing: house Number of Children: 2 number of grandchildren: 2 Communication Needs: Hard of Hearing and Corrective Lenses Education Level: master's degree Do you need help understanding health information?: Rarely 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, [employer]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 Pets and animals: Yes Pets and animals: dog(s) and bird(s) Sexually active: No Do you think of yourself as: straight/heterosexual Current gender identity: male What is your relationship status?: How often do you talk on the phone with friends or family?: twice per week How often do you get together with friends or relatives?: three or more times per week How often do you attend nondenominational or presybeterian services?: 1-3 times per year Do you belong to any clubs or organized social groups?: yes Panel score (0-1 are the most socially isolated patients): 3 What type of physical activity do you participate in: walking, bicycling and other Details: spining Duration: 30-45 minutes/day Frequency: 3-4 times per week Meaghan/Religious: No preference Special meaghan needs: No Seatbelt use: always Helmet use: Yes Helmet use: always Drive intox or ride w/intox package car driver: No Do you feel safe at home: Yes Do you feel safe in your relationship?: Yes
[2024-10-05] MEDS: VANCOMYCIN/WATER (PEG) 1.75 GM/350 ML BAG IVPB (16:18)
--- NOTE | 2024-10-05 16:28 | PGE_ITS ---
Date of Service Date of service: 10/05/24 Time of Service: 16:28 Assessment and Plan Assessment and plan (1) Neutropenia: Status: Acute Assessment and plan: Still very neutropenic. Viral swabs pending. Added tick panel per ID as they are already seeing anaplasmosis with recent warm weather. I discussed the case with Dr. eJff from ID. She agreed with vancomycin vs dapto. After discussing the concern about delayed immune reaction to cefazolin, she recommended stopping ertapenem (and any other beta lactam) and suggested cipro to if we want to cover neurtropenic fever, though we may decide only to cover the known MSSA abscess. Given concern for pneumonia on CXR, I changed to levofloxacin for now. (2) Atrial fibrillation: Status: Chronic Assessment and plan: Continue with rate control with his Cardizem as well as Eliquis for CVA protection, no change (3) Postoperative abscess: Status: Acute Assessment and plan: CT re-read as concerning for small residual abscess. This was sent to [facility] where he had a recent MRI and they did not have a concern about evolving infection. Will call neurosurgery day team to confirm when able. Subjective Subjective Patient reports: voiding w/o difficulty; denies diarrhea, nausea or vomiting Interval history since last seen: 24 hours: no events Feeling okay. He does have a little sore throat. Slight cough, feels like a cold. Continues to have fevers. Eating and drinking some but not much appetite Exam Narrative Exam Narrative: GEN: Alert and oriented, NAD Neck: No lymphadenopathy, cervical surgical wound clean dry and intact, ROM without pain Cardiovascular: Regular rate and rhythm no murmur rubs or gallops Lungs: Clear to auscultation bilaterally with good air exchange no accessory muscle use is noted in all Abdomen: Soft nontender nondistended bowel sounds active Extremities: No cyanosis clubbing or edema bilaterally, no joint redness/swelling skin: no rash or wounds Objective Last Vital Signs Temp 38.8 C H 10/05/24 15:26 Pulse 72 10/05/24 15:10 Resp 18 10/05/24 15:10 BP 106/70 10/05/24 15:10 Pulse Ox 95 10/05/24 15:10 Laboratory Results - last 24 hr 10/04/24 10/04/24 10/04/24 21:14 21:20 22:26 WBC 0.68 L* RBC 4.49 Hgb 13.1 L Hct 39.8 L MCV 89 MCH 29.2 MCHC 32.9 RDW 14.5 H Plt Count 192 MPV 10.3 Immature Gran % 0.0 Neutrophils % 6.0 Band Neutrophils % Lymphocytes % 74.0 Atypical Lymphs % 0 Monocytes % 14.0 Eosinophils % 4.0 Basophils % 2.0 Nucleated RBC % 0.0 Absolute Neutrophils 0.02 L* Absolute Lymphocytes 0.50 L Absolute Monocytes 0.10 Absolute Eosinophils 0.03 Absolute Basophils 0.01 RBC Morphology Normal ESR 16 PT 11.6 H INR 1.2 H APTT 27.9 VBG Lactate 1.2 Sodium 134 L Potassium 4.2 Chloride 101 Carbon Dioxide 25.2 Anion Gap 7.8 BUN 17 Creatinine 1.1 Est GFR (CKD-EPI 2020) 68.29 Glucose 111 H Calcium 8.7 Total Bilirubin 0.8 AST 23 ALT 16 Alkaline Phosphatase 104 C-Reactive Protein < 0.50 Total Protein 7.0 Albumin 3.3 L Procalcitonin < 0.10 Urine Color Urine Clarity Urine pH Ur Specific [place] Urine Protein Urine Ketones Urine Blood Urine Nitrite Urine Bilirubin Urine Urobilinogen Ur Leukocyte Esterase Urine Glucose Random Vancomycin COVID-19 Source Nasopharynx SARS-CoV-2 (PCR) Negative Influenza Type A (PCR) Negative Influenza Type B (PCR) Negative RSV (PCR) Negative 10/04/24 10/05/24 10/05/24 23:37 06:55 14:25 WBC 0.79 L* RBC 3.74 L Hgb 10.9 L D Hct 32.5 L MCV 87 MCH 29.1 MCHC 33.5 RDW 14.7 H Plt Count 146 MPV 10.1 Immature Gran % See Differential Neutrophils % 1.0 Band Neutrophils % 0 Lymphocytes % 89.0 Atypical Lymphs % Monocytes % 6.0 Eosinophils % 2.0 Basophils % 2.0 Nucleated RBC % 0.0 Absolute Neutrophils 0.01 L* Absolute Lymphocytes 0.70 L Absolute Monocytes 0.05 L Absolute Eosinophils 0.02 Absolute Basophils 0.02 RBC Morphology Normal ESR PT INR APTT VBG Lactate Sodium 134 L Potassium 3.8 Chloride 101 Carbon Dioxide 26.5 Anion Gap 6.5 BUN 11 Creatinine 0.9 Est GFR (CKD-EPI 2020) 86.88 Glucose 112 H Calcium 8.8 Total Bilirubin 1.2 H AST 26 ALT 17 Alkaline Phosphatase 93 C-Reactive Protein Total Protein 6.8 Albumin 3.1 L Procalcitonin Urine Color Yellow Urine Clarity Clear Urine pH 5.0 Ur Specific [place] 1.010 Urine Protein Trace Urine Ketones Negative Urine Blood Negative Urine Nitrite Negative Urine Bilirubin Negative Urine Urobilinogen 0.2 Ur Leukocyte Esterase Negative Urine Glucose Negative Random Vancomycin 6.9 COVID-19 Source SARS-CoV-2 (PCR) Influenza Type A (PCR) Influenza Type B (PCR) RSV (PCR) PAWSS Have you Been Recently Intoxicated or Drunk Within the Last 30 days?: No Have you Ever Experienced Previous Episodes of Alcohol Withdrawal?: No Have you ever Experienced Withdrawal Seizures?: No Have you ever Experienced Delirium Tremens(DT)s?: No Have you ever undergone Alcohol Rehabilitation Treatment (i.e, inpt ot outpatient treatment programs)?: No Have you ever Experienced Blackouts?: No Have you ever Combined Alcohol with other Downers within the last 90 days?: No Have you ever Combined Alcohol with any other Substance of Abuse during the last 90 days?: No Positive Blood Alcohol level on Presentation? [PCS.BAL]: No Evidence of Increased Autonomic Activity (i.e. HR>120, tremor, sweating, agitation, nausea)?: No Result: 0 Time Spent with Patient Time Spent with Patient: 35-49 minutes Time was spent: preparing to see the patient(eg.review tests), obtaining and/or reviewing separately otained hiistory, ordering medications,tests, procedures, referring, communicating with other health special needs caregiver, indepentently interpreting results, counseling the patient and care coordination
[2024-10-05] MEDS: levoFLOXacin 750 MG/150 ML BAG 100 MG IVPB (18:39)
[2024-10-05 22:02] LABS: Adenovirus DNA Result Negative (Negative); Metapneumovirus RNA Result Negative (Negative); Parainfluenza Type1 RNA Result Negative (Negative); Parainfluenza Type2 RNA Result Negative (Negative); Parainfluenza Type3 RNA Result Negative (Negative); Parainfluenza Type4 RNA Result Negative (Negative); Rhinovirus RNA Result Negative (Negative)
[2024-10-05 22:23] LABS: Legionella Ag Detection Urine Negative (Negative)
[2024-10-06 02:35] VITALS: BP 134/83; PULSE 85; RESP 20; TEMP 37.1; O2SAT 96
[2024-10-06] MEDS: Pantoprazole 20 MG TABCR PO (08:01)
[2024-10-06] MEDS: Cholecalciferol (Vitamin D3) 1,000 UNIT TAB 2000 UNITS PO (08:01)
[2024-10-06] MEDS: dilTIAZem CD 120 MG CAPCR PO (08:01)
[2024-10-06] MEDS: Apixaban 5 MG TAB PO ×2 (08:01→20:03)
[2024-10-06] MEDS: Normal Saline Flush 10 ML SYR IVP ×2 (08:05→20:03)
[2024-10-06 08:35] VITALS: BP 143/89; PULSE 91; RESP 16; TEMP 36.3; O2SAT 98
--- NOTE | 2024-10-06 09:16 | PDOC.CMPRO ---
Date of service: 10/06/24 Time of Service: 09:17 Care Management Progress Note Progress Note Text Progress Note Text: Edinson was sleeping when CM first attempted to meet with him. His was present however and had some questions for the provider. CM communicated her request for information and shortly after that the provider was able to connect with her via text. CM returned later in the afternoon and Edinson was awake and sitting up in bed. There had been a tentative plan to discharge him if an oral antibiotic could be ordered but after consultation with ID at [facility], it was determined that Daptomycin would be a better choice. CM contacted [facility] and sent the necessary documentation to initiate therapy the new antibiotic. It was late in the day when the first daily dose could be given. Edinson will need to remain at [facility] tomorrow until his Daptomycin dose is infused, likely mid to late afternoon. He is scheduled to see his ID physician at [facility] on Friday10/11/24 and the length of treatment will be determined at that time. Discharge Potential Discharge Needs: PCP F/U Appt Anticipated Barriers to Discharge: None Identified Patient/Family Education Needs: Review discharge instructions, discuss Ask Me Three Transportation: Private vehicle Plan: Anticipate Edinson will be discharged home with a resumption of home infusion services, likely tomorrow. Edinson's antibiotic has been changed to daptomycin and he will be able to discharge after he receives tomorrow's dose, likely mid to late afternoon. Edinson will follow up with his surgeon, ID specialist, PCP and plan of care as prescribed and transport with family. CM will follow and continue to support discharge planning efforts. Social Determinants of Health Screening Social Determinants of Health last assessed: 10/06/24 Will the Patient Participate in the Screening?: Yes Do you worry about having a steady place to live?: no Problems where you live: no known problems In the past 12 months, have you had to go without electric, gas, oil or water in your home?: no Have you or anyone in your house had to go without enough food to eat?: no Has lack of transportation kept you from medical appointments or from doing things needed for daily living?: no Has anyone in your life made you feel unsafe or unsupported?: no How hard is it for you to pay for the very basics like food, housing, medical care, and heating? Would you say it is:: Not hard at all Do you want help finding or keeping work or a job?: I do not need or want help If for any reason you need help with day-to-day activities such as bathing, preparing meals, shopping, managing finances, etc., do you get the help you need?: I don?t need any help How often do you feel lonely or isolated from those around you?: Never Do you speak a language other than Romansh at home?: No Does the patient want assistance with any of the above?: No
[2024-10-06] MEDS: Colestipol 1 GM TAB PO ×2 (10:50→22:00)
[2024-10-06 11:09] LABS: Abs Immature Grans 0.01 10^3/uL (0.0-0.06); Absolute Basophil Count 0.01 10^3/uL (0.0-0.2); Absolute Eosinophil Count 0.06 10^3/uL (0.0-0.7); Absolute Monocyte Count 0.36 10^3/uL (0.1-0.8); Basophils % 0.8 %; Eosinophils % 4.8 %; HCT 35.6 % (40.0-50.0); HGB 11.8 g/dL (13.5-17.5); Immature Grans % 0.8 %; MCHC 33.1 % (32.0-36.0); MCV 88 fL (80-95); MPV 10.6 fL (8.0-11.0); Monocytes % 28.8 %; Neutrophils % 8.8 %; Platelet Count 185 10^3/uL (130-400); RBC 4.07 10^6/uL (4.36-5.78); RDW 14.4 % (11.8-14.1)
[2024-10-06 11:12] LABS: Lyme Ab w Rflx to Lyme Confirm Negative (Negative)
[2024-10-06 11:19] LABS: Diff Comment Diff Reviewed; RBC Morphology Normal
[2024-10-06 11:21] LABS: Absolute Neutrophil Count 0.11 10^3/uL (1.2-6.7); WBC 1.25 10^3/uL (4.4-10.8)
[2024-10-06 12:08] VITALS: BP 116/79; PULSE 87; RESP 16; TEMP 36.4; O2SAT 96
[2024-10-06 15:17] VITALS: BP 110/83; PULSE 81; RESP 16; TEMP 36.1; O2SAT 97
--- NOTE | 2024-10-06 16:14 | W.PM.PROGNOT ---
Date of Service Date of service: 10/06/24 Time of Service: 16:14 Assessment and Plan Assessment and plan (1) Neutropenia: Status: Acute Assessment and plan: Indicies all improving today. It does appear this was a delayed immune response to beta-lactams as improvement seen with withdrawal of cefazolin. Respiratory viral swabs negative. Tick panel per ID pending. I again discussed the case with Dr. Jeff from ID. Recommended daptomycin upon discharge. Will change today and work on setting up home infusion BLUE. Hold statin with dapto as using for primary prevention, high rhabdo risk (2) Abscess in epidural space of cervical spine: Status: Acute Assessment and plan: MSSA. D/w ID as above. Admission CT also reviewed with [facility] Dr. Sage. He looked at august CT and more recent MRI at [facility]. He does not feel abscess getting worse, recommends continuing plan of antibiotics. Will organize follow up with neurosurgery. (3) Atrial fibrillation: Status: Chronic Assessment and plan: Continue with rate control with his Cardizem as well as apixaban for CVA protection, no change (4) Pneumonia: Status: Acute Assessment and plan: Treated with levofloxacin with improvement. Can change to oral and complete 5 day course. Unfortunately, this is not adequate for abscess per ID. Subjective Subjective Patient reports: feels better, tolerating a regular diet and voiding w/o difficulty; denies diarrhea, nausea, vomiting, shortness of breath or fever Interval history since last seen: 24 hr events: Ertapenem stopped. Started levofloxacin to cover possible pneumonia He feels much better. Last fever last evening. More energy. Not coughnig or sore throat any more. Eating better today. Exam Narrative Exam Narrative: GEN: Alert and oriented, NAD Neck: cervical surgical wound clean dry and intact, ROM without pain Cardiovascular: Regular rate and rhythm no murmur rubs or gallops Lungs: Clear to auscultation bilaterally with normal effort Abdomen: Soft nontender nondistended bowel sounds active Extremities: No cyanosis clubbing or edema bilaterally, no joint redness/swelling skin: no rash or wounds Objective Last Vital Signs Temp 36.1 C L 10/06/24 15:17 Pulse 81 10/06/24 15:17 Resp 16 10/06/24 15:17 BP 110/83 10/06/24 15:17 Pulse Ox 97 10/06/24 15:17 Laboratory Results - last 24 hr 10/04/24 10/04/24 10/04/24 21:14 21:20 23:37 WBC RBC Hgb Hct MCV MCH MCHC RDW Plt Count MPV Immature Gran % Neutrophils % Lymphocytes % Monocytes % Eosinophils % Basophils % Nucleated RBC % Absolute Neutrophils Absolute Lymphocytes Absolute Monocytes Absolute Eosinophils Absolute Basophils RBC Morphology Adenovirus DNA Negative Lyme Disease Antibody Negative Human Metapneumovir RNA Negative Urine Legionella Ag Negative Parainfluenza 1 (PCR) Negative Parainfluenza 2 (PCR) Negative Parainfluenza 3 (PCR) Negative Parainfluenza 4 (PCR) Negative Resp Viral Spec Desc Not Applicable Rhinovirus (PCR) Negative 10/06/24 10:57 WBC 1.25 L* RBC 4.07 L Hgb 11.8 L Hct 35.6 L MCV 88 MCH 29.0 MCHC 33.1 RDW 14.4 H Plt Count 185 MPV 10.6 Immature Gran % 0.8 Neutrophils % 8.8 Lymphocytes % 56.0 Monocytes % 28.8 Eosinophils % 4.8 Basophils % 0.8 Nucleated RBC % 0.0 Absolute Neutrophils 0.11 L* Absolute Lymphocytes 0.70 L Absolute Monocytes 0.36 Absolute Eosinophils 0.06 Absolute Basophils 0.01 RBC Morphology Normal Adenovirus DNA Lyme Disease Antibody Human Metapneumovir RNA Urine Legionella Ag Parainfluenza 1 (PCR) Parainfluenza 2 (PCR) Parainfluenza 3 (PCR) Parainfluenza 4 (PCR) Resp Viral Spec Desc Rhinovirus (PCR) PAWSS Have you Been Recently Intoxicated or Drunk Within the Last 30 days?: No Have you Ever Experienced Previous Episodes of Alcohol Withdrawal?: No Have you ever Experienced Withdrawal Seizures?: No Have you ever Experienced Delirium Tremens(DT)s?: No Have you ever undergone Alcohol Rehabilitation Treatment (i.e, inpt ot outpatient treatment programs)?: No Have you ever Experienced Blackouts?: No Have you ever Combined Alcohol with other Downers within the last 90 days?: No Have you ever Combined Alcohol with any other Substance of Abuse during the last 90 days?: No Positive Blood Alcohol level on Presentation? [PCS.BAL]: No Evidence of Increased Autonomic Activity (i.e. HR>120, tremor, sweating, agitation, nausea)?: No Result: 0 Time Spent with Patient Time Spent with Patient: 35-49 minutes Time was spent: preparing to see the patient(eg.review tests), obtaining and/or reviewing separately otained hiistory, ordering medications,tests, procedures, referring, communicating with other health health care administrator, indepentently interpreting results, counseling the patient and care coordination
[2024-10-06] MEDS: levoFLOXacin 500 MG, levoFLOXacin 250 MG 750 MG PO (16:20)
--- NOTE | 2024-10-06 17:24 | NUR.NOTE ---
Pt ordered daptomycin to be administered at 1600. Medication didn't get mixed and delivered to floor till 1720. Mediation was spiked and hung by primary nurse when received. See EMAR for timesNursing Note:
[2024-10-06 19:57] VITALS: BP 132/84; PULSE 93; RESP 18; TEMP 36.8; O2SAT 95
[2024-10-06] MEDS: Normal Saline 1,000 ML 125 ML IV (22:11)
[2024-10-06 23:01] VITALS: BP 134/86; PULSE 82; RESP 20; TEMP 36.3; O2SAT 97
[2024-10-07] MEDS: Acetaminophen 325 MG TAB PO (00:37)
[2024-10-07] MEDS: Normal Saline 1,000 ML 125 ML IV ×2 (02:40→11:04)
[2024-10-07 07:11] LABS: Abs Immature Grans 0.01 10^3/uL (0.0-0.06); HCT 34.9 % (40.0-50.0); HGB 11.7 g/dL (13.5-17.5); MCH 29.2 pg (27.0-33.0); MCHC 33.5 % (32.0-36.0); MCV 87 fL (80-95); MPV 9.8 fL (8.0-11.0); Platelet Count 190 10^3/uL (130-400); RBC 4.01 10^6/uL (4.36-5.78); RDW 14.2 % (11.8-14.1); RDW-SD 45.3 fL
[2024-10-07 07:27] LABS: ALT 17 U/L (16-63); AST 27 U/L (15-37); Albumin 2.9 g/dL (3.4-5.0); Alkaline Phosphatase 92 U/L (46-116); Anion Gap 10.2 mmol/L (3-11); BUN 14 mg/dL (7-18); Bilirubin, Total 0.6 mg/dL (0.2-1.0); CO2 25.8 mmol/L (21.0-32.0); CREATININE 1.1 mg/dL (0.70-1.30); Calcium 8.9 mg/dL (8.5-10.1); Chloride 103 mmol/L (98-107); Estimated GFR 68.29 (mL/min/1.73m2); Glucose 98 mg/dL (74-106); Potassium 3.7 mmol/L (3.5-5.1); Sodium 139 mmol/L (136-145); Total Protein 6.8 g/dL (6.4-8.2)
[2024-10-07 07:43] LABS: Lab Add On Test DONE
[2024-10-07 07:45] LABS: Absolute Basophil Count 0.03 10^3/uL (0.0-0.2); Absolute Eosinophil Count 0.06 10^3/uL (0.0-0.7); Absolute Lymphocyte Count 0.85 10^3/uL (1.2-3.4); Absolute Monocyte Count 0.37 10^3/uL (0.1-0.8); Atypical Lymphocytes % 2 %
[2024-10-07 07:47] LABS: Absolute Neutrophil Count 0.23 10^3/uL (1.2-6.7); Diff Comment Manual Differential; RBC Morphology Normal
[2024-10-07 08:00] VITALS: BP 140/92; PULSE 82; RESP 18; TEMP 36.5; O2SAT 96
[2024-10-07 08:10] LABS: Creatine Kinase 92 U/L (39-308)
[2024-10-07] MEDS: Normal Saline Flush 10 ML SYR IVP ×2 (08:10→08:12)
[2024-10-07] MEDS: Pantoprazole 20 MG TABCR PO (08:13)
[2024-10-07] MEDS: dilTIAZem CD 180 MG CAPCR PO (08:13)
[2024-10-07] MEDS: Cholecalciferol (Vitamin D3) 1,000 UNIT TAB 2000 UNITS PO (08:13)
[2024-10-07] MEDS: Apixaban 5 MG TAB PO (08:14)
[2024-10-07] MEDS: Colestipol 1 GM TAB PO (10:12)
[2024-10-07 11:16] VITALS: BP 130/89; PULSE 88; RESP 18; TEMP 36.5; O2SAT 96
[2024-10-07 13:22] LABS: WBC 1.55 10^3/uL (4.4-10.8)
--- NOTE | 2024-10-07 14:40 | DSE_ITS ---
Date of service: 10/07/24 Time of Service: 14:40 DS: Diagnosis Discharge Diagnosis (1) Neutropenia: Status: Acute (2) Abscess in epidural space of cervical spine: Status: Acute (3) Atrial fibrillation: Status: Chronic (4) Pneumonia: Status: Acute Discharge Plan Disposition Patient Disposition: Home W/Home Health Services Condition: Good Discharge Details Reason For Visit: neutropenic fever Admit Date/Time: 10/05/24 00:02 Admit Provider: Ronal Ramirez Attending Provider: Ronal Ramirez Primary Care Provider: Mahnaz Sims Hospital Course Hospital Course: 79 yo M with atrial fibrillation with recent cervical spine sufgery complicated by MSSA epidural abscess who was on a prolonged course of IV cefazolin who came to the hospital when screening labs showed profound neutropenia of 0.68 with ANC of 20. On initial evaluation fever to 39.4 C was noted. He was admitted and treated with IV ertapenem and vancomycin. Chest x-day did show an infiltrate concerning for pneumonia. His ANC was 10 the next monrning. After discussion with Dr. Jeff from [facility] the ertapenem was stopped 10/05, as a delayed- type immune reaction to cefazolin causing neutropenia would be expected to cross react with all beta-lactams. We did give him levofloxacin to cover the pnuemonia. Expanded respiratory viral panel was negative. Legionalla was negative. Lyme was negative but the rest of the tick panel was pending (gets sent to [facility] lab). By 10/06 he was feeling better and his WBC and ANC were trending up. His last fever was 10/05 PM. Vancomycin was replaced with daptomycin 10/06 to prepare him to discharge with home therapy. New orders were sent to [facility] to start 10/08. He received his infusion of daptomycin 700mg at 1400 on 10/07. His WBC on day of discharge was 1.55 and ANC 230. Infection precautions were urged upon discharge. He should finish 2 more day of levofloxacin for pneumonia. CPK was 92 on the morning of discharge. It was recommended he not take the atorvastatin while he is on daptomycin given the risk of rhabdomyolysis. CBC/diff was ordered for 10/09. He does not need to back to the hospital for severe neutropenia if he remains afebrile, but I would not recommend an in- person clinic visit at [facility] as planned on 10/11 if his ANC is still <500. resumption of home health recommended. Home Meds and New Rx's Prescriptions: New daptomycin in 0.9 % sod chlor 700 mg/100 mL piggyback 700 mg IV Q24H Rx Instructions: administer over 30 mins levofloxacin 750 mg Tablet 750 mg PO Q24H Qty: 2 0RF Continued pantoprazole 20 mg tablet,delayed release (DR/EC) 20 mg PO DAILY tizanidine [Zanaflex] 2 mg capsule 2 mg PO Q8H PRN colestipol [Colestid] 1 gram tablet 1 gm PO BID Qty: 180 3RF Rx Instructions: swallow whole tab w/any liquid;do not crush/chew/cut;administer other meds 1hr before/4hr after taking dose cholecalciferol (vitamin D3) 25 mcg (1,000 unit) capsule 2,000 unit PO DAILY Ilumya 100 mg/mL syringe 100 mg subcut Q12W triamcinolone acetonide 0.1 % cream 1 applic TP BID Qty: 453.6 4RF diphenoxylate-atropine [Lomotil] 2.5-0.025 mg tablet 1 tab PO qid prn Qty: 90 4RF atorvastatin 20 mg tablet 20 mg PO QHS Qty: 90 3RF Eliquis 5 mg tablet 5 mg PO BID Qty: 180 3RF diltiazem HCl 120 mg capsule,extended release 24hr 120 mg PO DAILY Patient Comments: TAKE 1 CAPSULE DAILY Discontinued cefazolin 2 gram recon soln 2 g IV Q8H Rx Instructions: Anticipated stop date 10/11/24 Discharge Instructions Instructions: Neutropenia Additional Instructions: Avoid social contact and wear masks with others until your absolute neutrophil count is at least above 500. You have labs on Friday to recheck. If you are still low, you should call the [facility] clinic and ask about telehealth or postponing your appointment Friday. Activity:: Activity as Tolerated Equipment/Supplies:: No Equipment Needed Diet:: As Tolerated Discharge Orders Discharge Orders: Discharge Order (Routine); Ordered 10/07/24 Ordered By: Marco Maldonado DS: Summary Time Spent with Patient providing and/or coordinating discharge services: Greater than 30 minutes Status at Discharge Functional status at discharge: independent ambulation Overall status at discharge: patient is back to baseline Mental Status: mental status grossly normal Speech and Movement: speech and movement normal Mood: congruent mood Affect: normal affect Quality:SDOH Health Related Social Needs: No Data to Display Exam Narrative Exam Narrative: GEN: Alert and oriented, NAD Neck: cervical surgical wound clean dry and intact, ROM without pain Cardiovascular: Regular rate and rhythm no murmur rubs or gallops Lungs: Clear to auscultation bilaterally with normal effort Abdomen: Soft nontender nondistended bowel sounds active Extremities: No cyanosis clubbing or edema bilaterally, no joint redness/swelling skin: no rash or wounds Psych Mental Status: mental status grossly normal Speech and Movement: speech and movement normal Mood: congruent mood Affect: normal affect DS: Data Vitals/I&O Vitals and I&O: Vital Signs Temperature 36.5 C 10/07/24 11:16 Temperature Source Tympanic 10/07/24 11:16 Pulse 88 10/07/24 11:16 Pulse Rhythm Irregular 10/05/24 01:08 Respiratory Rate 18 10/07/24 11:16 Respiratory Effort Normal, Non-Labored 10/05/24 01:08 Respiratory Depth Normal 10/05/24 01:08 Respiratory Pattern Normal 10/05/24 01:08 Blood Pressure 130/89 10/07/24 11:16 Blood Pressure Position Sitting 10/04/24 21:02 Pulse Oximetry 96 10/07/24 11:16 Oxygen Delivery Method Room Air 10/07/24 11:16 Oxygen Flow Rate 0 10/07/24 11:16 Pain Level 0 10/07/24 11:16 Intake & Output 10/06/24 10/07/24 10/07/24 23:59 11:59 23:59 Intake Total 530 / 530 1600 / 1600 Output Total 375 / 375 Balance 530 / 530 1225 / 1225 Weight 79.1 kg Intake: IV 530 / 530 1600 / 1600 Output: Urine 375 / 375 Other: Urine Color Yellow Yellow Urine Appearance Clear Clear Urine Odor Normal Normal Comment Patient voided ind. in the toilet. pT stated that he voided. Stool Size Moderate Stool Characteristics Liquid Data Completed and Pending Labs on day of discharge: Labs from last 24 hours 10/07/24 10/07/24 10/04/24 07:43 06:45 21:20 WBC 1.55 L* RBC 4.01 L Hgb 11.7 L Hct 34.9 L MCV 87 MCH 29.2 MCHC 33.5 RDW 14.2 H Plt Count 190 MPV 9.8 Immature Gran % See Differential Neutrophils % 15.0 Lymphocytes % 53.0 Atypical Lymphs % 2 Monocytes % 24.0 Eosinophils % 4.0 Basophils % 2.0 Nucleated RBC % 0.0 Absolute Neutrophils 0.23 L* Absolute Lymphocytes 0.85 L Absolute Monocytes 0.37 Absolute Eosinophils 0.06 Absolute Basophils 0.03 RBC Morphology Normal Sodium 139 Potassium 3.7 Chloride 103 Carbon Dioxide 25.8 Anion Gap 10.2 BUN 14 Creatinine 1.1 Est GFR (CKD-EPI 2020) 68.29 Glucose 98 Calcium 8.9 Total Bilirubin 0.6 AST 27 ALT 17 Alkaline Phosphatase 92 Creatine Kinase 92 Total Protein 6.8 Albumin 2.9 L Lyme Disease Antibody Negative Add-On Test Request DONE Preliminary micro results at discharge 10/04/24 23:01 Blood Culture - Preliminary Blood NO GROWTH 48 HOURS 10/04/24 22:26 Blood Culture - Preliminary Blood NO GROWTH 48 HOURS 10/04/24 21:20 Blood Culture - Preliminary Blood NO GROWTH 48 HOURS PFSH All Active Problems (Updated 10/06/24 @ 16:21 by Marco Maldonado) Abscess in epidural space of cervical spine (Acute) Pneumonia (Acute) Neutropenia (Acute) Neutropenic fever (Acute) Postoperative abscess (Acute 08/2024) Post Laminectomy, draining abscess Tubular adenoma of colon (Acute 03/2024) Psoriasis (Chronic) scalp Lumbar radiculitis (Acute) Hematuria (Acute) Hip pain (Acute) Rotator cuff arthropathy of right shoulder (Acute) Nocturia (Acute) Dr. Perez recommended nightly ibuprofen 200mg daily. 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 surgical repair [facility] Chronic gastritis (Chronic 11/13/17) [facility]; WITH ULCERS AND EROSIONS Atrial fibrillation (Chronic 07/30/13) 2005. Ablation x 4 Medical History (Updated 10/06/24 @ 16:21 by Marco Maldonado) Cervical radiculitis Thoracic spinal stenosis Sick sinus syndrome Pacemaker Implant date 10/03/20 Followed by [facility] Cardiology Dr. Esteban Gore. [employer] accolade MRI [id number] History of CVA (cerebrovascular accident) without residual deficits Ileocolic anastomotic leak (11/19/16) Diverticulosis of colon without diverticulitis (08/24/13) Crohn's disease resection distal small bowel and prox colon age 35 needs colonoscopy at 5 year intervals Carcinoma of prostate (07/30/13) Dong 10 2007. Radiation and lupron; on PSA monitoring q 4 months - high sens PSA. Surgical History (System 09/20/24 @ 16:10 by Suzan Neville) Status post replacement of left shoulder joint History of bilateral cataract extraction (11/19/16) History of bowel resection History of neck surgery (1994) was very helpful for his symptoms -- C4-5 Status post inguinal hernia repair Status post shoulder surgery Family History (System 09/20/24 @ 16:10 by Suzan Neville) Mother , 81 Heart disease CHF Father , 69 Diabetes Stroke Alcohol abuse Brother Age: 81 Scoliosis Maternal Grandfather Heart disease Paternal Grandfather No problems noted. Maternal Grandmother Stroke Paternal Grandmother No problems noted. Daughter Depression Son Heart disease Social History (System 09/20/24 @ 16:10 by Suzan Neville) Smoking/Tobacco Use Status: Never Tobacco: How many years used: 3 Second Hand Exposure: Yes Smoking risk assessment performed?: Yes Alcohol Intake: current Alcohol Intake frequency: a few times a week Alcohol type: wine and hard liquor Drug use: Never Substance use type: does not use Counseling given: No Adopted: No Caregiver/Support person: Yes Details: Household members: spouse Housing: house Number of Children: 2 number of grandchildren: 2 Communication Needs: Hard of Hearing and Corrective Lenses Education Level: master's degree Do you need help understanding health information?: Rarely 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, [employer]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 Pets and animals: Yes Pets and animals: dog(s) and bird(s) Sexually active: No Do you think of yourself as: straight/heterosexual Current gender identity: male What is your relationship status?: How often do you talk on the phone with friends or family?: twice per week How often do you get together with friends or relatives?: three or more times per week How often do you attend taoist or gnosticist services?: 1-3 times per year Do you belong to any clubs or organized social groups?: yes Panel score (0-1 are the most socially isolated patients): 3 What type of physical activity do you participate in: walking, bicycling and other Details: spining Duration: 30-45 minutes/day Frequency: 3-4 times per week Meaghan/Rastafari: No preference Special meaghan needs: No Seatbelt use: always Helmet use: Yes Helmet use: always Drive intox or ride w/intox customer service driver: No Do you feel safe at home: Yes Do you feel safe in your relationship?: Yes Time Spent with Patient Time Spent with Patient: <45 minutes Time was spent: preparing to see the patient(eg.review tests), obtaining and/or reviewing separately otained hiistory, ordering medications,tests, procedures, referring, communicating with other health home care manager, indepentently interpreting results, counseling the patient and care coordination
--- NOTE | 2024-10-07 17:12 | CMDISCH_ITS ---
Date of service: 10/07/24 Time of Service: 17:12 LACE Index Scoring Tool Questions: Length of Stay (in days): 2 Was the patient admitted via the E.D.?: Yes E.D. Visits: 1 Answers: Total Score: 6 Risk of Readmission: Low Risk Care Management Discharge Plan Reason for Hospitalization: neutropenic fever Discharge Plan: Edinson returned home with a resumption of HH RN and home IV antibiotic therapy, provided through [facility] and [facility]. His medication regiment was changed; TIFFANI provided the new orders to [facility], who will deliver the new medication this evening. He had his dose of antibiotic this afternoon, and was discharged home after, with his start of care for home IV abx therapy scheduled for tomorrow. CM faxed the new NELC/medication order to [facility] for continuity of care. Edinson's drove him home via private vehicle. He will follow up with his PCP and discharge plan of care. He was happy to be going home. Patient/Family Education Needs: Review discharge instructions and limitations, discussion of self care needs including ask me three. Services Needed at Discharge: DME Agency ([place], medication delivery scheduled for this evening by 8pm) and Home Health Care Services (resume HH RN) SDOH Health Related Social Needs: No Data to Display
[2024-10-07 23:58] LABS: Anaplasma phagocytophilum Negative (Negative); B. miyamotoi PCR Negative (Negative); Babesia divergens/MO-1 Negative (Negative); Babesia duncani Negative (Negative); Babesia microti Negative (Negative); Ehrlichia chaffeensis Negative (Negative); Ehrlichia ewingii/canis Negative (Negative); Ehrlichia muris eauclairensis Negative (Negative)
== END 2024-10-07 16:05 | disposition home health service (06) | DRG 808 ==
LOC: ER 10-05 00:24 → MS 10-05 01:08
PROVIDERS: Admitting Provider Hospitalist; Emergency Provider Emergency Medicine; PCP Family Medicine; Responsible Provider Family Medicine; Visit Provider Hospitalist
DX: D70.2 Other drug-induced agranulocytosis (principal); J18.9 Pneumonia, unspecified organism; I48.20 Chronic atrial fibrillation, unspecified; K50.90 Crohn's disease, unspecified, without complications; T81.42XA Infection following a procedure, deep incisional surgical site, initial encounter; T36.1X5A Adverse effect of cephalosporins and other beta-lactam antibiotics, initial encounter; E78.5 Hyperlipidemia, unspecified; R50.81 Fever presenting with conditions classified elsewhere; Z95.0 Presence of cardiac pacemaker; Z79.01 Long term (current) use of anticoagulants; Z86.73 Personal history of transient ischemic attack (TIA), and cerebral infarction without residual deficits; L40.8 Other psoriasis; M54.16 Radiculopathy, lumbar region; R35.1 Nocturia; I70.90 Unspecified atherosclerosis; D64.9 Anemia, unspecified; H90.3 Sensorineural hearing loss, bilateral; K29.50 Unspecified chronic gastritis without bleeding; G60.8 Other hereditary and idiopathic neuropathies; I49.5 Sick sinus syndrome; C61 Malignant neoplasm of prostate; K57.30 Diverticulosis of large intestine without perforation or abscess without bleeding; Z90.49 Acquired absence of other specified parts of digestive tract; Z98.0 Intestinal bypass and anastomosis status; Z96.612 Presence of left artificial shoulder joint; B95.61 Methicillin susceptible Staphylococcus aureus infection as the cause of diseases classified elsewhere
CPT/HCPCS: 00123; 36415; 70491; 80053; 82550; 84145; 85652; 87040; 87449; 87632; 87637; 87798; 96365; 96366; 96367; 99285; 71045; 80202; 81003; 83605; 85025; 85610; 85730; 86140; 86618; 87070; 99222; 99232; 99239; J0131; J0878; J1335; J1956; J2543; J3370; J3372; J3490

== ENCOUNTER 2024-10-09 14:09 | Outpatient (REF) | payer MEDICARE, BC, SELFPAY ==
[2024-10-09 14:28] LABS: Abs Immature Grans 0.15 10^3/uL (0.0-0.06); Absolute Basophil Count 0.06 10^3/uL (0.0-0.2); Absolute Eosinophil Count 0.18 10^3/uL (0.0-0.7); Absolute Lymphocyte Count 1.44 10^3/uL (1.2-3.4); Absolute Monocyte Count 0.91 10^3/uL (0.1-0.8); Absolute Neutrophil Count 4.42 10^3/uL (1.2-6.7); Basophils % 0.8 %; Eosinophils % 2.5 %; HGB 11.9 g/dL (13.5-17.5); Immature Grans % 2.1 %; Lymphocytes % 20.1 %; MCH 29.2 pg (27.0-33.0); MCHC 33.1 % (32.0-36.0); MCV 88 fL (80-95); Monocytes % 12.7 %; Neutrophils % 61.8 %; Platelet Count 255 10^3/uL (130-400); RBC 4.08 10^6/uL (4.36-5.78); RDW 14.4 % (11.8-14.1); RDW-SD 46.3 fL; WBC 7.16 10^3/uL (4.4-10.8)
== END 2024-10-09 14:10 | disposition home or self-care (01) ==
LOC: NCHCN 14:09
PROVIDERS: PCP Family Medicine; Visit Provider Family Medicine
DX: D70.9 Neutropenia, unspecified (principal)
CPT/HCPCS: 85025

== ENCOUNTER 2024-10-11 02:03 | Outpatient (CLI) | payer MEDICARE, BC, SELFPAY ==
[2024-10-11 08:47] LABS: Creatine Kinase 131 U/L (39-308)
[2024-10-11 12:06] LABS: BUN 16 mg/dL (7-18); CREATININE 1.2 mg/dL (0.70-1.30); Estimated GFR 61.52 (mL/min/1.73m2)
[2024-10-11 17:02] LABS: ALT 42 U/L (16-63); AST 37 U/L (15-37); Albumin 3.5 g/dL (3.4-5.0); Alkaline Phosphatase 111 U/L (46-116); Anion Gap 10.3 mmol/L (3-11); Bilirubin, Total 0.8 mg/dL (0.2-1.0); C-Reactive Protein 1.02 mg/dL (<or=0.5); CO2 27.7 mmol/L (21.0-32.0); Calcium 9.7 mg/dL (8.5-10.1); Chloride 103 mmol/L (98-107); Glucose 90 mg/dL (74-106); Potassium 4.3 mmol/L (3.5-5.1); Sodium 141 mmol/L (136-145); Total Protein 7.6 g/dL (6.4-8.2)
== END 2024-10-11 02:04 | disposition home or self-care (01) ==
PROVIDERS: PCP Family Medicine; Visit Provider Internal Medicine Infectious Disease
DX: G06.1 Intraspinal abscess and granuloma (principal); T81.9XXA Unspecified complication of procedure, initial encounter
CPT/HCPCS: 36415; 80053; 82550; 84520; 82565; 86140

== ENCOUNTER 2024-10-13 14:34 | Outpatient (REF) | payer MEDICARE, BC, SELFPAY ==
[2024-10-13 17:10] LABS: Abs Immature Grans 0.13 10^3/uL (0.0-0.06); Absolute Basophil Count 0.05 10^3/uL (0.0-0.2); Absolute Lymphocyte Count 1.42 10^3/uL (1.2-3.4); Absolute Neutrophil Count 6.48 10^3/uL (1.2-6.7); Basophils % 0.6 %; Eosinophils % 1.1 %; HCT 38.2 % (40.0-50.0); HGB 12.4 g/dL (13.5-17.5); Immature Grans % 1.4 %; Lymphocytes % 15.8 %; MCH 29.1 pg (27.0-33.0); MCHC 32.5 % (32.0-36.0); MCV 90 fL (80-95); MPV 10.4 fL (8.0-11.0); Monocytes % 8.9 %; Neutrophils % 72.2 %; Nucleated RBC 0.2 % (0.0-0.3); Platelet Count 313 10^3/uL (130-400); RBC 4.26 10^6/uL (4.36-5.78); RDW 15.2 % (11.8-14.1); WBC 8.98 10^3/uL (4.4-10.8)
[2024-10-13 17:22] LABS: ALT 59 U/L (16-63); AST 38 U/L (15-37); Albumin 3.7 g/dL (3.4-5.0); Alkaline Phosphatase 109 U/L (46-116); Anion Gap 12.5 mmol/L (3-11); BUN 21 mg/dL (7-18); Bilirubin, Total 0.9 mg/dL (0.2-1.0); C-Reactive Protein 0.65 mg/dL (<or=0.5); CO2 25.5 mmol/L (21.0-32.0); CREATININE 1.4 mg/dL (0.70-1.30); Calcium 9.4 mg/dL (8.5-10.1); Chloride 102 mmol/L (98-107); Creatine Kinase 199 U/L (39-308); Estimated GFR 51.13 (mL/min/1.73m2); Glucose 102 mg/dL (74-106); Potassium 4.5 mmol/L (3.5-5.1); Sodium 140 mmol/L (136-145); Total Protein 7.4 g/dL (6.4-8.2)
== END 2024-10-13 14:35 | disposition home or self-care (01) ==
LOC: LBN 14:34
PROVIDERS: PCP Family Medicine; Visit Provider Internal Medicine Infectious Disease
DX: G06.1 Intraspinal abscess and granuloma (principal); A49.01 Methicillin susceptible Staphylococcus aureus infection, unspecified site
CPT/HCPCS: 80053; 82550; 85025; 86140

== ENCOUNTER 2024-11-03 03:26 | Outpatient (CLI) | payer MEDICARE, BC, SELFPAY ==
[2024-11-03 12:27] LABS: Abs Immature Grans 0.02 10^3/uL (0.0-0.06); Absolute Basophil Count 0.04 10^3/uL (0.0-0.2); Absolute Eosinophil Count 0.11 10^3/uL (0.0-0.7); Absolute Lymphocyte Count 1.29 10^3/uL (1.2-3.4); Absolute Monocyte Count 0.63 10^3/uL (0.1-0.8); Absolute Neutrophil Count 4.55 10^3/uL (1.2-6.7); Basophils % 0.6 %; Eosinophils % 1.7 %; HCT 36.9 % (40.0-50.0); HGB 12.1 g/dL (13.5-17.5); Immature Grans % 0.3 %; Lymphocytes % 19.4 %; MCH 29.6 pg (27.0-33.0); MCHC 32.8 % (32.0-36.0); MCV 90 fL (80-95); MPV 11.2 fL (8.0-11.0); Monocytes % 9.5 %; Neutrophils % 68.5 %; Platelet Count 174 10^3/uL (130-400); RBC 4.09 10^6/uL (4.36-5.78); RDW 15.6 % (11.8-14.1); RDW-SD 51.9 fL; WBC 6.64 10^3/uL (4.4-10.8)
[2024-11-03 12:55] LABS: ALT 23 U/L (16-63); AST 26 U/L (15-37); Albumin 3.8 g/dL (3.4-5.0); Alkaline Phosphatase 74 U/L (46-116); Anion Gap 8.5 mmol/L (3-11); BUN 23 mg/dL (7-18); Bilirubin, Total 1.2 mg/dL (0.2-1.0); CO2 26.5 mmol/L (21.0-32.0); CREATININE 1.1 mg/dL (0.70-1.30); Calcium 9.5 mg/dL (8.5-10.1); Chloride 105 mmol/L (98-107); Estimated GFR 68.29 (mL/min/1.73m2); Glucose 93 mg/dL (74-106); Potassium 4.4 mmol/L (3.5-5.1); Sodium 140 mmol/L (136-145); Total Protein 7.3 g/dL (6.4-8.2)
[2024-11-03 12:56] LABS: Creatine Kinase 174 U/L (39-308)
[2024-11-03 12:58] LABS: C-Reactive Protein < 0.50 mg/dL (<or=0.5)
[2024-11-06 13:40] LABS: PSA, Ultrasensitive 0.09 ng/mL (<= 6.5)
== END 2024-11-03 03:27 | disposition home or self-care (01) ==
PROVIDERS: Internal Medicine Infectious Disease; PCP Family Medicine; Visit Provider Nurse Practitioner
DX: Z85.46 Personal history of malignant neoplasm of prostate (principal); G06.1 Intraspinal abscess and granuloma; G06.2 Extradural and subdural abscess, unspecified
CPT/HCPCS: 80053; 82550; 84153; 85025; 86140

== ENCOUNTER 2025-01-24 13:44 | Outpatient (CLI) | payer MEDICARE, BC, SELFPAY ==
--- NOTE | 2025-01-24 13:30 | DI.RAD_ITS ---
Exam(s) XR KNEE LT 4V AP,LAT,TEJAL,PAT EXAM: XR KNEE LT 4V AP,LAT,TEJAL,PAT CLINICAL HISTORY: left knee pain. TECHNIQUE: 2D digital imaging was performed. COMPARISON: CR XR KNEE LT 3V AP,LAT,TEJAL from 06/28/2022 FINDINGS: Four views No evidence of fracture. There is a small amount of increased joint fluid. There is mild degenerative narrowing of the medial compartment and of the lateral aspect of the patellofemoral compartment. The lateral compartment exhibits normal height but very mild chondrocalcinosis. IMPRESSION: Mild degenerative changes. Small joint effusion. DATA REPOSITORY: RADIATION DOSE DELIVERED:
--- NOTE | 2025-01-24 14:15 | DI.RAD_ITS ---
Exam(s) XR SHOULDER LT COMPLETE 2+V EXAM: XR SHOULDER LT COMPLETE 2+V CLINICAL HISTORY: eval L shoulder pain s/p TSA. TECHNIQUE: 2D digital imaging was performed. COMPARISON: CR XR SHOULDER RT COMPLETE 2+V from 06/25/2023 FINDINGS: 3 views There is a left shoulder prosthesis which appears to be in satisfactory position alignment. No fracture or loosening evident. Ipsilateral cardiac pacemaker noted. Degenerative changes in the AC joint evident. IMPRESSION: Satisfactory appearance of the left shoulder prosthesis. DATA REPOSITORY: RADIATION DOSE DELIVERED:
== END 2025-01-24 13:45 | disposition home or self-care (01) ==
PROVIDERS: PCP Family Medicine; Referring Provider Family Medicine; Visit Provider Student in an Organized Health Care Education/Training Program
DX: S83.242A Other tear of medial meniscus, current injury, left knee, initial encounter (principal); M95.8 Other specified acquired deformities of musculoskeletal system; M25.512 Pain in left shoulder; M17.12 Unilateral primary osteoarthritis, left knee; I48.91 Unspecified atrial fibrillation; Z79.01 Long term (current) use of anticoagulants; X58.XXXA Exposure to other specified factors, initial encounter
CPT/HCPCS: 99213; 73030; 73564

== ENCOUNTER 2025-03-16 13:08 | Outpatient (CLI) | payer MEDICARE, BC, SELFPAY ==
[2025-03-16 16:03] LABS: Abs Immature Grans 0.03 10^3/uL (0.0-0.06); HCT 36.7 % (40.0-50.0); HGB 12.6 g/dL (13.5-17.5); Immature Grans % 0.4 %; MCH 30.1 pg (27.0-33.0); MCHC 34.3 % (32.0-36.0); MCV 88 fL (80-95); MPV 10.5 fL (8.0-11.0); Platelet Count 197 10^3/uL (130-400); RBC 4.19 10^6/uL (4.36-5.78); RDW 14.7 % (11.8-14.1); RDW-SD 47.4 fL; WBC 6.83 10^3/uL (4.4-10.8)
[2025-03-16 16:20] LABS: C-Reactive Protein < 0.50 mg/dL (<or=0.5); Creatine Kinase 245 U/L (39-308)
[2025-03-16 16:22] LABS: ALT 37 U/L (16-63); AST 33 U/L (15-37); Albumin 4.0 g/dL (3.4-5.0); Alkaline Phosphatase 73 U/L (46-116); Anion Gap 4.9 mmol/L (3-11); BUN 22 mg/dL (7-18); Bilirubin, Total 0.9 mg/dL (0.2-1.0); CO2 28.1 mmol/L (21.0-32.0); Calcium 9.1 mg/dL (8.5-10.1); Chloride 103 mmol/L (98-107); Estimated GFR 55.88 (mL/min/1.73m2); Glucose 115 mg/dL (74-106); Potassium 4.2 mmol/L (3.5-5.1); Sodium 136 mmol/L (136-145); Total Protein 7.6 g/dL (6.4-8.2)
== END 2025-03-16 13:09 | disposition home or self-care (01) ==
PROVIDERS: Internal Medicine Infectious Disease; PCP Family Medicine; Visit Provider Internal Medicine
DX: Z85.46 Personal history of malignant neoplasm of prostate (principal); G06.1 Intraspinal abscess and granuloma; T81.9XXA Unspecified complication of procedure, initial encounter
CPT/HCPCS: 36415; 80053; 82550; 84153; 84403; 85025; 86140

== ENCOUNTER 2025-04-29 04:12 | Outpatient (CLI) | payer MEDICARE, BC, SELFPAY ==
[2025-05-02 11:38] LABS: Lyme Ab w Rflx to Lyme Confirm Negative (Negative)
== END 2025-04-29 04:13 | disposition home or self-care (01) ==
LOC: LBO 04:13
PROVIDERS: PCP Family Medicine; Visit Provider Family Medicine
DX: M25.50 Pain in unspecified joint (principal)
CPT/HCPCS: 36415; 86618

== ENCOUNTER 2025-05-18 12:03 | Outpatient (CLI) | payer MEDICARE, BC, SELFPAY ==
[2025-05-18] VITALS (17 sets, daily range): BP systolic 140–181; BP diastolic 82–108; PULSE 60–104; RESP 12–20; TEMP 36.9; O2SAT 96–99
[2025-05-18] MEDS: Nerve Block Tray 1 EACH MC (12:40)
[2025-05-18] MEDS: Midazolam 2 MG/2 ML VIAL IVP (13:20)
[2025-05-18] MEDS: fentaNYL 100 MCG/2 ML VIAL IJ (13:20)
[2025-05-18] MEDS: Lactated Ringers 500 ML 30 ML IV (13:35)
--- NOTE | 2025-05-18 13:59 | DI.RAD_ITS ---
Exam(s) XR PAIN CLINIC LUMBAR SP 2V EXAM: XR PAIN CLINIC LUMBAR SP 2V CLINICAL HISTORY: Dx: Lumbar Spondylosis TECHNIQUE: 2D and realtime digital imaging was performed. CONTRAST MATERIAL: Refer to procedure report. COMPARISON: No exams were available for comparison FINDINGS: Fluoroscopy was provided for Dr. Gonzalez during the performance of a lumbar radiofrequency ablation. Please refer to the procedure report for complete details. Ka,r=13.3 mGy IMPRESSION: RADIATION DOSE DELIVERED: 0.0 0.0 0
[2025-05-18] MEDS: Lidocaine 2% Pres-Free 5 ML VIAL IJ (14:05)
[2025-05-18] MEDS: methylPREDNISolone ACETATE 40 MG/ML VIAL IJ (14:05)
--- NOTE | 2025-05-18 14:13 | PDOC.PAIN_ITS ---
Date of service: 05/18/25 Time of Service: 14:13 Pain Managment Procedure Note Procedure Note Procedure Note: PROCEDURE NOTE BILATERAL LUMBAR RADIOFREQUENCY ABLATION Date of Service: May 18, 2025 Patient: Edinson Samuels Provider: Francesco Gonzalez DO, MPH dEinson Samuels [facility] Bilateral Lumbar Radiofrequency Ablation with the [employer] Machine. Pre Operative Diagnosis: Lumbosacral Spondylosis without Myelopathy ICD-10 M47.816 Post Operative Diagnosis: Same Pre procedure pain; VAS= 6/10 Comments: He last had this procedure on 06/02/24 and had >6 months of >50% pain relief. Most of this pain has returned. PROCEDURE: Radiofrequency Ablation of medial branches - bilateral L3, L4, L5 and lateral branches of bilateral S1. Edinson was interviewed and the medical record was reviewed. There were no medical, pharmacologic, radiographic or other structural contraindications to attempting fluoroscopically guided BILATERAL Lumbar Radiofrequency Ablation. Risks and expected side effects as well as potential benefit of the procedure were reviewed with Edinson, and the patient's voiced concerns were addressed. The printed consent form was signed. Standard time-out procedure was performed. Edinson was brought into the fluoroscopy suite and positioned into the prone position on the fluoroscopy table and allowed to adjust to a position of comfort. A grounding pad was placed on the left abdomen. The sterile field was prepared using chlorhexidine preparation of the skin and sterile draping. Local anesthesia superficial and deep was provided by local infiltration of 2% lidocaine. A 17g 100 mm radiofrequency introducer needle was placed to the planned anatomic targets guided with intermittent fluoroscopy with a perpendicular approach to terminally place at the junction of the superior articular process and the transverse process of the bilateral L4, L5, the base of the sacral ala on the bilateral for the L5 medial branch nerve and the area between base of the sacral ala to the S1 foramen bilaterally. The stylets were removed and radiofrequency probes with a 4mm active tip were then inserted. Needle tip position of the probes was verified in the AP, oblique, and lateral views. At each site, the medial branch nerve was stimulated at 2 Hz to a maximum 1-2 volts determined to finalize safe needle and electrode placement. The patient was awake and responsive during this portion of the procedure. Each target was anesthetized with 1-2 mL of 2 % Lidocaine for anesthesia for lesioning and then each target was lesioned at 80 degrees Celsius for 2 minutes and 30 seconds. Tissue impedances were noted to be between 250 and 500 Ohms. Next I injected 1/4 cc of Depomedrol (40 mg/cc) followed by 1/2 cc of 0.5% Bupivacaine at each segmental sensory nerve. There was no unusual discomfort expressed by Edinson. The needles were withdrawn without difficulty and bandages placed over the needle placement sites, the patient was observed and was without hemodynamic, neurologic, or allergic reactions. Fluoroscopic images were digitally archived. POST PROCEDURE EVALUATION: IMPRESSION: 1. Summary of procedure. Medication given is documented in the MAR. 2. Follow up plan: Edinson to contact [facility] as needed. This procedure may be repeated if the patient achieves at least 50% improvement in pain/function for at least 6 months. 3. Estimated Blood Loss: <5 mls 4. Fluoroscopy time: Documented in the EMR. Follow up plans and appointments were discussed with the Edinson. Post procedure instruction was given as documented in nursing documentation and having met discharge criteria, Edinson was discharged from the [facility]. This advanced procedure uses cooled radiofrequency energy to safely target the sensory nerves responsible for sending pain signals.1 A radiofrequency generator transmits a small current of Radiofrequency energy through an insulated electrode, or probe, placed within tissue. Ionic heating, produced by the friction of charged molecules, thermally deactivates the nerves responsible for sending pain signals to the brain. Radiofrequency energy heats and cools the tissue at the site of pain. Unlike other Radiofrequency procedures, Coolief circulates water through the device while heating nervous tissue to create a larger treatment area, increasing the opportunity to help with pain. This combination targets the pain- transmitting nerves without excessive heating, leading to pain relief. COMMENTS: No apparent complications. Post-procedure pain: VAS= 0/10. I personally completed the entire procedure. FRANCESCO GONZALEZ DO, MPH ABPM[employer]R - Subspecialty board certification in Pain Medicine [facility] Coding Conscious Sedation used for procedure: No CPT Codes: Single Facet Joint, Lumbar/Sacral *BILATERAL* - [id number] ([id number]~G) Single Facet Joint, Lumbar/Sacral cool each add'l - [id number] ([id number]~G) Additional Codes: Date of Service () Diagnoses: lumbar spondylosis without myelopathy
[2025-05-18] MEDS: Bupivacaine 0.5% Pres-Free 10 ML VIAL IJ (14:17)
== END 2025-05-18 12:04 | disposition home or self-care (01) ==
LOC: PC 12:04
PROVIDERS: PCP Family Medicine; Visit Provider Preventive Medicine Occupational Medicine
DX: M54.50 Low back pain, unspecified (principal); M47.816 Spondylosis without myelopathy or radiculopathy, lumbar region
CPT/HCPCS: 64635; 64636; 72100; J0665; J1010; J2250; J3010

== ENCOUNTER 2025-05-18 12:17 | Outpatient (CLI) | payer MEDICARE, BC, SELFPAY ==
[2025-05-18 16:01] LABS: Hemoglobin A1C 5.5 % (<5.7)
[2025-05-18 16:12] LABS: Vitamin B12 443 pg/mL (193-986)
[2025-05-19 13:10] LABS: Albumin 59.3 % (55.8-66.1); Albumin g/dL 4.4 g/dL (3.6-5.2); Alpha 1 g/dL 0.20 g/dL (0.15-0.40); Alpha 2 g/dL 0.50 g/dL (0.50-1.00); Beta g/dL 0.80 g/dL (0.60-1.20); Gamma g/dL 1.50 g/dL (0.60-1.60); Total Protein 7.4 g/dL (6.3-8.2)
[2025-05-19 15:35] LABS: Albumin, Urine % 23.5 %; Albumin, Urine mg/dL <1 mg/dL; Globulins, Urine % 76.5 %; Globulins, Urine mg/dL <4 mg/dL
== END 2025-05-18 12:18 | disposition home or self-care (01) ==
LOC: LBO 12:18
PROVIDERS: PCP Family Medicine; Visit Provider Family Medicine
DX: G62.9 Polyneuropathy, unspecified (principal); R73.01 Impaired fasting glucose
CPT/HCPCS: 36415; 80186; 84156; 84166; 86335; 82607; 83036; 84165

== ENCOUNTER 2025-06-15 01:29 | Outpatient (CLI) | payer MEDICARE, BC, SELFPAY ==
[2025-06-15 11:47] LABS: ESR 2 mm/hr (0-20)
[2025-06-15 11:48] LABS: Abs Immature Grans 0.01 10^3/uL (0.0-0.06); HCT 39.1 % (40.0-50.0); HGB 13.2 g/dL (13.5-17.5); Immature Grans % 0.1 %; MCH 29.7 pg (27.0-33.0); MCHC 33.8 % (32.0-36.0); MCV 88 fL (80-95); MPV 10.8 fL (8.0-11.0); Platelet Count 196 10^3/uL (130-400); RBC 4.45 10^6/uL (4.36-5.78); RDW 14.3 % (11.8-14.1); RDW-SD 45.8 fL; WBC 6.95 10^3/uL (4.4-10.8)
[2025-06-15 12:11] LABS: Creatine Kinase 235 U/L (46-171)
[2025-06-15 22:40] LABS: CRP, High Sensitivity <0.34 mg/L (See Note)
== END 2025-06-15 01:30 | disposition home or self-care (01) ==
PROVIDERS: Internal Medicine; Internal Medicine Infectious Disease; PCP Family Medicine; Visit Provider Orthopaedic Surgery
DX: Z85.46 Personal history of malignant neoplasm of prostate (principal); M25.512 Pain in left shoulder; G06.1 Intraspinal abscess and granuloma
CPT/HCPCS: 36415; 82550; 84153; 84403; 85652; 86141; 85025